=== PATIENT | male | born 1945 | race Caucasian/White ===

== ENCOUNTER 2016-10-02 19:17 | Emergency (ER) | payer OTHER, BC ==
[~2016-10-02] VITALS: Ht 177.8 cm; Wt 96.4 kg
[~2016-10-02 19:17] MED LIST: ALL100 PO; ASPEC81 PO; ATEN-173 PO; CRDCD300 PO; MULT-506 PO
[2016-10-02 19:24] VITALS: TEMP 36.9; Ht 177.8 cm; Wt 96.4 kg
[2016-10-02] MEDS ORDERED: RANITIDINE HCL 50 MG/100 ML D5W IV STA (19:37)
[2016-10-02] MEDS ORDERED: DiphenhydrAMINE HCL 50 MG/ML VIAL IV STA (19:37)
[2016-10-02] MEDS ORDERED: SODIUM CHLORIDE 0.9% 1000ML 1,000 ML IV STA (19:37)
[2016-10-02 19:53] VITALS: O2SAT 99
[2016-10-02] MEDS ORDERED: ASPI1TAB2 PO (19:59)
[2016-10-02] MEDS ORDERED: ALLO100T PO (20:00)
[2016-10-02] MEDS ORDERED: DILT360C17 PO (20:02)
[2016-10-02] MEDS ORDERED: METO25TA56 PO (20:05)
[2016-10-02] MEDS ORDERED: ASPI325T39 PO (20:06)
[2016-10-02] MEDS ORDERED: LISI5TAB PO (20:06)
[2016-10-02] MEDS ORDERED: PRLSR20 PO (20:12)
[2016-10-02] MEDS ORDERED: TAMS0.4C38 PO (20:12)
[2016-10-02] MEDS ORDERED: CHOL1000 PO (20:12)
[2016-10-02] MEDS ORDERED: GLIP10TA9 PO (20:12)
[2016-10-02] MEDS ORDERED: FINA5TAB4 PO (20:12)
--- NOTE | 2016-10-02 20:54 | EMERGENCY ROOM VISIT NOTE ---
ED Visit Note First contact with patient: 19:31 CHIEF COMPLAINT: Allergic reaction HISTORY OF PRESENT ILLNESS: This 71-year-old male patient presents to the emergency department after they developed sudden onset of swelling and itching of the left arm and right face a few hours ago. Patient states he was outside earlier, got stung on the right forehead and left arm by a yellow jacket. He started to notice swelling of his left forearm and his right forehead around his right eye about 2 hours ago after taking a hot shower, and states the swelling has gotten progressively worse. He took one Benadryl at 7 PM without much improvement. The patient does not have any swelling of the lips and denies a sensation of swelling in the throat. The patient has not had shortness of breath. Has not had previous reactions like this before. He denies any chest pain, shortness of breath, rash, abdominal pain, nausea or vomiting, fevers or chills, diarrhea, urinary symptoms. REVIEW OF SYSTEMS: A review of systems was performed with positives and pertinent negatives listed in the history of present illness. All other systems were reviewed and are negative. ALLERGIES: Reviewed in chart MEDICATIONS: Reviewed in chart PMH: Hypertension, hyperlipidemia, type 2 diabetes, BPH SOCIAL HISTORY: Lives at home. Denies tobacco, alcohol, recreational drug use. Medication Reconciliation: I attest that I have personally reviewed the patient' s current medication list. Blood pressure screening: The patient was found to have an elevated blood pressure and was referred to their primary doctor for recheck and further treatment. PHYSICAL EXAM:VITALS: Vitals are noted on the nurse's note and reviewed by myself. Vital signs stable. GENERAL: Pleasant and cooperative, in no acute distress, non-diaphoretic, well- developed well-nourished. THROAT: No pharyngeal edema or injection, no exudates or tonsillar hypertrophy. Airway patent. LUNGS: Clear to auscultation and breath sounds equal, no wheezes, rales, or rhonchi. EYES: PERRLA, EOMI, no discharge or injection. NEUROLOGICAL: Alert and oriented to person, place, and time. Normal sensation to light and sharp touch. HEART: Regular rate without murmurs, ectopy, gallops, or rubs. SKIN: There is no rash noted. The lips are not swollen. There is moderate right sided periorbital swelling. There is moderate swelling and induration of the left forearm. +2 pulses distally, normal sensation, normal cap refill, normal strength of left arm. EMERGENCY DEPARTMENT COURSE: I examined the patient. The patient was given IV fluid bolus, IV Benadryl, IV ranitidine and kept on the monitor. He felt much improved after treatment and there was noticeable improvement in his swelling. Patient was discharged home in stable condition and ambulatory, with his family member driving him home. Current/Historical Medications Scheduled Allopurinol (Zyloprim), 200 MG PO DAILY Aspirin (Aspirin Ec), 325 MG PO DAILY Cholecalciferol (Vitamin D3), 1,000 UNITS PO DAILY Diltiazem Hcl Coated Beads (Cardizem Cd), 360 MG PO DAILY Finasteride (Proscar), 5 MG PO DAILY Glipizide (Glucotrol), 10 MG PO TID Lisinopril (Prinivil), 5 MG PO DAILY Metoprolol Tartrate (Lopressor) (Lopressor), 25 MG PO BID Multivitamin (Multivitamin), 1 TAB PO DAILY Tamsulosin Hcl (Flomax), 0.4 MG PO DAILY Scheduled PRN Omeprazole (Prilosec), 20 MG PO DAILY PRN for reflux Allergies Coded Allergies: Meperidine (Verified Allergy, Mild, 10/02/16) NAUSEA Vital Signs Date Time Temp Pulse Resp B/P (MAP) Pulse Ox O2 Delivery O2 Flow Rate FiO2 10/02/16 19:53 99 Room Air 10/02/16 19:53 99 Room Air 10/02/16 19:24 36.9 86 18 160/74 96 Room Air Medications Administered Medications (Trade) Dose Ordered Sig/Ashley Route Start Time Stop Time Status Last Admin Dose Admin Ranitidine HCl (zANTac IV) 50 mg NOW STAT IV 10/02/16 19:37 10/02/16 19:40 DC 10/02/16 19:52 50 MG Sodium Chloride 1,000 ml @ 999 mls/hr Q1H1M STAT IV 10/02/16 19:37 10/02/16 20:37 DC 10/02/16 19:52 999 MLS/HR Diphenhydramine HCl (Benadryl Inj) 50 mg NOW STAT IV 10/02/16 19:37 10/02/16 19:40 DC 10/02/16 19:52 50 MG Departure Information Impression Primary Impression: Allergic reaction to bee sting Dispostion Home / Self-Care Condition GOOD Referrals James Gordon M.D. (PCP) Patient Instructions ED Bite Sting Insect Local Allergic React, My [facility] Additional Instructions You may continue to take Benadryl 50 mg every 6-8 hours for itching and swelling. Sleep with your head elevated for the next 2-3 nights, until your facial swelling had improved. Cool compresses to your areas of swelling for comfort and to help reduce swelling. Try to stay cool, avoid hot showers as this can worsen your symptoms. Follow-up family doctor in the next few days if symptoms persist. Please return to the emergency department for worsening symptoms, including difficulty breathing, lip or tongue swelling, throat tightness or itching, difficulty swallowing, chest pain, persistent vomiting, fevers or chills, any signs of infection, or any other concerns.
[2016-10-02 21:41] VITALS: BP 142/85; PULSE 74; O2SAT 98
== END 2016-10-02 21:42 | disposition home or self-care (01) ==
LOC: C.EDB 19:18 → C.EDD 21:42
DX: T63.441A Toxic effect of venom of bees, accidental (unintentional), initial encounter (principal); I10 Essential (primary) hypertension; R78.5 Finding of other psychotropic drug in blood; E11.9 Type 2 diabetes mellitus without complications; N40.0 Benign prostatic hyperplasia without lower urinary tract symptoms; Z79.82 Long term (current) use of aspirin; Z79.899 Other long term (current) drug therapy

== ENCOUNTER 2020-05-23 13:48 | Inpatient (IN) ==
[2020-05-23] MEDS ORDERED: ONDANSETRON INJ 2 MG/ML 2 ML VIAL IV STA (14:12)
[2020-05-23] MEDS ORDERED: MoRPHine SULFATE 4 MG/ML 1 ML CARP\\VIAL IV STA (14:12)
--- NOTE | 2020-05-23 14:16 | Emergency Department Note ---
History of Present Illness General Chief complaint: Flank Pain Stated complaint: PAIN ON RIGHT SIDE/TROUBLES BREATHING Time Seen by Provider: 05/23/20 14:04 Source: patient History of Present Illness Provider complaint: Right-sided back pain Onset (ago): day(s) Location: back and right Radiation: non-radiation Pain Consistency: + constant Maximum Pain Intensity: 8 Quality: + sharp Exacerbated By: + movement (Some movements like twisting his trunk) and + other (Deep breaths) Associated symptoms: + shortness of breath (Cannot take deep breaths due to pain); no chest pain, no cough, no diaphoresis, no fever/chills and no nausea/vomiting This is a 75-year-old male who presents with right-sided back pain starting yesterday morning.The pain was transient at the time and he was fine all throughout the day. He then noticed the pain coming back last night. It has been constant throughout the night and was worse this morning. He describes it as sharp. He rates it an 8 out of 10 in severity. It is worse when he takes deep breaths. He is not really short of breath but states that he cannot take deep breaths. It does worsen with twisting of his trunk to some degree but more with deep breaths. He has had no fever, cough, chest discomfort or pain, abdominal pain, vomiting, diarrhea, urinary symptoms, leg swelling or pain, recent immobilization or travel. He does have factor V but he states he has had no complications from this. He denies any injury. Home Medications Medication Instructions Recorded Confirmed Type allopurinol 100 mg PO BID 05/23/20 05/23/20 History aspirin 325 mg PO QAM 05/23/20 05/23/20 History diltiazem HCl 360 mg PO DAILY 05/23/20 05/23/20 History furosemide 20 mg PO DAILY 05/23/20 05/23/20 History glipizide 10 mg PO BID 05/23/20 05/23/20 History lisinopril 5 mg PO DAILY 05/23/20 05/23/20 History metoprolol tartrate 25 mg PO BID 05/23/20 05/23/20 History omeprazole 20 mg PO DAILY 05/23/20 05/23/20 History tamsulosin 0.4 mg PO HS 05/23/20 05/23/20 History Allergies Allergy/AdvReac Type Severity Reaction Status Date / Time meperidine Allergy Mild Verified 05/23/20 14:57 Past Med/Surg History Medical History (Updated 05/23/20 @ 20:12 by Julius Amaro MD) BPH (benign prostatic hyperplasia) CKD (chronic kidney disease) stage 3, GFR 30-59 ml/min 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 Leiden mutation GERD (gastroesophageal reflux disease) Hyperlipidemia Hypertension Family History (Updated 05/23/20 @ 18:15 by Victor Hugo Conklin MD) Father Pancreatic cancer Heart disease Mother Colorectal cancer Daughter Factor V Leiden mutation Social History Smoking Status: Former smoker Hx Alcohol Use: Yes Alcohol type: hard liquor Hx Substance Use: No Preferred Language: Kyrgyz Communication Ability: Effective Architecture Technician Required: No Beliefs That Will Affect Care: None Current Living Situation: Family Other Information That Helps Us Care for You: No Feels Safe at Home: Yes Safety Concerns: Feels Safe At This Time Assistive Devices: Glasses Review of Systems See HPI for pertinent positives & negatives. and A total of 10 systems reviewed and were otherwise negative Physical Exam Vital Signs Vital Signs - 24 hr 05/23/20 13:54 05/23/20 15:49 05/23/20 15:57 Temperature 36.7 C Temperature Source Temporal Artery Scan Pulse Rate 92 H 91 H 91 H Pulse Rate from SpO2 Sensor 91 H Pulse Rhythm Regular Pulse Strength Normal Respiratory Rate 18 28 H 26 H Respiratory Effort / Characteristics Non-Labored Spontaneous Respiratory Depth Normal Respiratory Pattern Regular Blood Pressure 174/80 H 187/86 H 185/94 H Blood Pressure Mean 111 119 124 Blood Pressure Position Sitting Pulse Oximetry 93 92 Oxygen Delivery Method Room Air Oxygen Flow Rate 6 Sepsis Recent Fever Within 48 Hours No Sepsis New/Unexplained Change in Mental Status N/A Sepsis Action Taken by Nursing No Action Required 05/23/20 16:00 05/23/20 16:30 05/23/20 16:31 Temperature Temperature Source Pulse Rate 91 H 90 87 Pulse Rate from SpO2 Sensor 91 H 89 88 Pulse Rhythm Pulse Strength Respiratory Rate 38 H 23 31 H Respiratory Effort / Characteristics Respiratory Depth Respiratory Pattern Blood Pressure 190/93 H 185/87 H Blood Pressure Mean 125 119 Blood Pressure Position Pulse Oximetry 92 94 94 Oxygen Delivery Method Oxymask Oxymask Oxygen Flow Rate 6 6 6 Sepsis Recent Fever Within 48 Hours Sepsis New/Unexplained Change in Mental Status Sepsis Action Taken by Nursing 05/23/20 17:00 05/23/20 17:30 Temperature Temperature Source Pulse Rate 86 88 Pulse Rate from SpO2 Sensor 85 88 Pulse Rhythm Pulse Strength Respiratory Rate 32 H 32 H Respiratory Effort / Characteristics Respiratory Depth Respiratory Pattern Blood Pressure 194/104 H 197/96 H Blood Pressure Mean 134 129 Blood Pressure Position Pulse Oximetry 95 95 Oxygen Delivery Method Oxymask Oxymask Oxygen Flow Rate 5 5 Sepsis Recent Fever Within 48 Hours Sepsis New/Unexplained Change in Mental Status Sepsis Action Taken by Nursing Constitutional: Vital signs reviewed. Eyes: Pupils are equal round reactive to light. Conjunctiva are noninjected. ENT: Pharynx is clear without erythema or exudate. Mucous membranes are moist. Neck supple without meningeal signs. Respiratory: Clear to auscultation bilaterally. Breath sounds are equal bilaterally. Cardiovascular: Regular rate and rhythm. No rubs or gallops. GI: Soft, nondistended and nontender. Bowel sounds are present. Musculoskeletal: No peripheral edema. No lower extremity tenderness. No midline tenderness to the thoracic or lumbar spine. No rash or erythema to the back. Integumentary: No cyanosis. or jaundice. Neurological: The patient is awake and alert. No focal deficits. Psychiatric: Normal affect. Not anxious appearing. Course Administered Medications Hydromorphone HCl (Hydromorphone Inj 0.5 Mg/0.5 Ml Syr) 0.5 mg IV Q4H PRN PRN Reason: Pain (8, 9, or 10) Stop: 06/06/20 18:33 Last Admin: 05/23/20 19:08 Dose: 0.5 mg Documented by: [id number] Heparin Sodium/Dextrose (Heparin Sodium/Dextrose) 25,000 units in 500 mls @ 28 mls/hr IV .[id number] [facility]; Protocol Stop: 06/22/20 15:59 Last Admin: 05/23/20 16:20 Dose: 1,400 units/hr, 28 mls/hr Documented by: [id number] Cosigned by: [id number] Discontinued Medications Heparin Sodium (Porcine) (Heparin Sod (Porcine) 1000 Unit/Ml 10 Ml Vial) Confirm Administered Dose 10,000 units .ROUTE .[facility] Stop: 05/23/20 16:12 Last Admin: 05/23/20 16:22 Dose: 5,000 units Documented by: [id number] Cosigned by: [id number] Heparin Sodium/Dextrose (Heparin Iv Standard With Bolus) 1 ea IV NOW ; Protocol Stop: 05/23/20 16:00 Last Admin: 05/23/20 16:28 Dose: Not Given Documented by: [id number] Hydromorphone HCl (Hydromorphone Inj 0.5 Mg/0.5 Ml Syr) 0.5 mg IV NOW STA Stop: 05/23/20 15:01 Last Admin: 05/23/20 15:20 Dose: 0.5 mg Documented by: [id number] Hydromorphone HCl (Hydromorphone Inj 0.5 Mg/0.5 Ml Syr) 0.25 mg IV NOW STA Stop: 05/23/20 16:32 Last Admin: 05/23/20 16:40 Dose: 0.25 mg Documented by: [id number] Ioversol (Optiray 350 500ml) 119 ml IV ONCE ONE Stop: 05/23/20 15:47 Last Admin: 05/23/20 15:46 Dose: 119 ml Documented by: [id number] Morphine Sulfate (Morphine Sulfate 4 Mg/Ml 1 Ml Carp\Vial) 4 mg IV NOW STA Stop: 05/23/20 14:13 Last Admin: 05/23/20 14:20 Dose: 4 mg Documented by: [id number] Morphine Sulfate (Morphine Sulfate 4 Mg/Ml 1 Ml Carp\Vial) 3 mg IV Q4H PRN PRN Reason: Pain Stop: 06/06/20 17:55 Last Admin: 05/23/20 18:19 Dose: 3 mg Documented by: [id number] Ondansetron HCl (Ondansetron Inj 2 Mg/Ml 2 Ml Vial) 4 mg IV NOW STA Stop: 05/23/20 14:13 Last Admin: 05/23/20 14:20 Dose: 4 mg Documented by: [id number] Critical Care Time Critical Care Time: Yes Total Critical Care Time: 45 I have personally spent approximately 45 minutes of critical care time in the direct management of this patient. This includes bedside care, interpretation of diagnostic studies, and testing, discussion with consultants, patient, and family members, and other required patient management activities. These minutes are in excess of all separately billable procedures. Medical Decision Making Differential Diagnosis Pneumothorax, pulmonary embolism, shingles, pleurisy, muscle strain Medical Records Attestation: I reviewed the patient's medical records. I did perform a limited focused review of portions of the patient's old chart on the electronic medical record. The patient has had no recent pertinent visits to this hospital. Home Medications Current Medication List: was personally reviewed by me Laboratory Data Attestation: I reviewed the patient's lab results. Result diagrams: 05/23/20 14:20 05/23/20 14:20 Lab Results 05/23/20 05/23/20 05/23/20 Range/Units 14:18 14:20 14:20 WBC 12.41 H (4.8-10.8) K/uL RBC 5.19 (4.7-6.1) M/uL Hgb 14.6 (14.0-18.0) g/dL Hct 41.8 L (42-52) % MCV 80.5 (80-100) fL MCH 28.1 (25-34) pg MCHC 34.9 (32-36) g/dL RDW Std Deviation 40.6 (36.4-46.3) fL RDW Coeff of Sesar 13.9 (11.5-14.5) % Plt Count 165 (130-400) K/uL MPV 9.5 (7.4-10.4) fL Immature Gran % (Auto) 0.2 % Neut % (Auto) 75.3 % Lymph % (Auto) 12.9 % [place] % (Auto) 9.0 % Eos % (Auto) 2.3 % Baso % (Auto) 0.3 % Neut # (Auto) 9.35 H (1.4-6.5) K/uL Lymph # (Auto) 1.60 (1.2-3.4) K/uL [place] # (Auto) 1.12 H (0.11-0.59) K/uL Eos # (Auto) 0.28 (0-0.5) K/uL Baso # (Auto) 0.04 (0-0.2) K/uL Immature Gran # (Auto) 0.02 (0.00-0.02) K/uL PT (9.0-12.0) Seconds INR (0.9-1.1) APTT (21.0-31.0) Seconds PTT Ratio Sodium 136 (136-145) mmol/L Potassium 4.4 (3.5-5.1) mmol/L Chloride 104 (98-107) mmol/L Carbon Dioxide 26 (21-32) mmol/L Anion Gap 6.0 (3-11) BUN 33 H (7-18) mg/dl Creatinine 1.83 H (0.6-1.4) mg/dl Est Cr Clr Drug Dosing 39.8 ml/min Est GFR ( Amer) 40.6 Est GFR (Non-Af Amer) 35.1 BUN/Creatinine Ratio 18.1 (10-20) Glucose 268 H (70-99) mg/dl Calcium 10.1 (8.5-10.1) mg/dl Total Bilirubin 0.4 (0.2-1) mg/dl AST 13 L (15-37) U/L ALT 19 (12-78) U/L Alkaline Phosphatase 80 (45-117) U/L Troponin I < 0.015 (0-0.045) ng/ml Total Protein 7.6 (6.4-8.2) gm/dl Albumin 3.8 (3.4-5.0) gm/dl Globulin 3.8 (2.5-4.0) gm/dl Albumin/Globulin Ratio 1.0 (0.9-2) Urine Color Yellow Urine Appearance Clear (Clear) Urine pH 5.0 (4.5-7.5) Ur Specific [place] 1.015 (1.000-1.030) Urine Protein 1+ H (Negative) Urine Glucose (UA) Negative (Negative) Urine Ketones Negative (Negative) Urine Blood Negative (Negative) Urine Nitrite Negative (Negative) Urine Bilirubin Negative (Negative) Urine Urobilinogen Negative (Negative) Ur Leukocyte Esterase Negative (Negative) Urine WBC (Auto) 1-5 (0-5) /hpf Urine RBC (Auto) 0-4 (0-4) /hpf U Hyaline Cast (Auto) 1-5 (0-5) /lpf U Epithel Cells (Auto) 0-5 (0-5) /lpf Urine Bacteria (Auto) Negative (Negative) COVID-19 Eval Order SARS-CoV-2 (PCR) (Negative) Influenza Type A (PCR) (Neg) Influenza Type B (PCR) (Neg) RSV (RT-PCR) (Neg) 05/23/20 05/23/20 05/23/20 Range/Units 15:55 15:55 16:01 WBC (4.8-10.8) K/uL RBC (4.7-6.1) M/uL Hgb (14.0-18.0) g/dL Hct (42-52) % MCV (80-100) fL MCH (25-34) pg MCHC (32-36) g/dL RDW Std Deviation (36.4-46.3) fL RDW Coeff of Sesar (11.5-14.5) % Plt Count (130-400) K/uL MPV (7.4-10.4) fL Immature Gran % (Auto) % Neut % (Auto) % Lymph % (Auto) % [place] % (Auto) % Eos % (Auto) % Baso % (Auto) % Neut # (Auto) (1.4-6.5) K/uL Lymph # (Auto) (1.2-3.4) K/uL [place] # (Auto) (0.11-0.59) K/uL Eos # (Auto) (0-0.5) K/uL Baso # (Auto) (0-0.2) K/uL Immature Gran # (Auto) (0.00-0.02) K/uL PT 9.6 (9.0-12.0) Seconds INR 0.9 (0.9-1.1) APTT 25.6 (21.0-31.0) Seconds PTT Ratio 1.0 Sodium (136-145) mmol/L Potassium (3.5-5.1) mmol/L Chloride (98-107) mmol/L Carbon Dioxide (21-32) mmol/L Anion Gap (3-11) BUN (7-18) mg/dl Creatinine (0.6-1.4) mg/dl Est Cr Clr Drug Dosing ml/min Est GFR ( Amer) Est GFR (Non-Af Amer) BUN/Creatinine Ratio (10-20) Glucose (70-99) mg/dl Calcium (8.5-10.1) mg/dl Total Bilirubin (0.2-1) mg/dl AST (15-37) U/L ALT (12-78) U/L Alkaline Phosphatase (45-117) U/L Troponin I (0-0.045) ng/ml Total Protein (6.4-8.2) gm/dl Albumin (3.4-5.0) gm/dl Globulin (2.5-4.0) gm/dl Albumin/Globulin Ratio (0.9-2) Urine Color Urine Appearance (Clear) Urine pH (4.5-7.5) Ur Specific [place] (1.000-1.030) Urine Protein (Negative) Urine Glucose (UA) (Negative) Urine Ketones (Negative) Urine Blood (Negative) Urine Nitrite (Negative) Urine Bilirubin (Negative) Urine Urobilinogen (Negative) Ur Leukocyte Esterase (Negative) Urine WBC (Auto) (0-5) /hpf Urine RBC (Auto) (0-4) /hpf U Hyaline Cast (Auto) (0-5) /lpf U Epithel Cells (Auto) (0-5) /lpf Urine Bacteria (Auto) (Negative) COVID-19 Eval Order CovFluRsv at [facility] SARS-CoV-2 (PCR) NEGATIVE (Negative) Influenza Type A (PCR) Negative (Neg) Influenza Type B (PCR) Negative (Neg) RSV (RT-PCR) Negative (Neg) Imaging Data Radiologist's Impression: Chest CTA 05/23/20 14:12 CT angio chest PE protocol HISTORY: 75 years-old Male with right pain eval for PE. Acute shortness of breath with chest pain TECHNIQUE: Multiple CTA images of the chest were obtained after the intravenous administration of 117 ml Optiray. Coronal and sagittal MIPS were obtained from the axial data set and were submitted for review. All measurements were obtained according to NASCET criteria. A dose lowering technique was utilized adhering to the principles of ALARA. COMPARISON: CT thoracic spine of same day FINDINGS: CTA: Mild cardiomegaly. No pericardial effusion. Mild coronary artery calcifications. Moderate atheromatous plaque the thoracic aorta without aneurysm or dissection. Pulmonary bullae within the distal aspect of the right lower lobar pulmonary artery extends into the segmental and subsegmental branches. Additional segmental and subsegmental pulmonary emboli of the left lower lobe and lingula. No evidence of right heart strain. CT CHEST: Unremarkable thyroid. Centrally calcified 10 mm AP window lymph node may reflect prior granulomatous disease. Trace right pleural effusion. No pneumothorax. Bronchial wall thickening. Bibasilar right greater than left groundglass densities with mild subsegmental consolidation. Central airways are patent. No pneumoperitoneum. Small hiatal hernia with mild mid and distal esophageal wal l thickening. 1.7 cm exophytic soft tissue attenuating lesion of the superior pole right kidney posteriorly. There are a few subcentimeter hypodensities of the liver suggestive of cysts measuring up to 6 mm. No acute fracture. IMPRESSION: 1. Cardiomegaly with bilateral pulmonary emboli, most pronounced in the right lower lobe. 2. No right heart strain or pulmonary infarct identified. 3. Trace right pleural effusion. 4. Right greater than left bibasilar predominant opacities suggestive of atelectasis. A nonspecific pneumonitis could appear similarly 5. 1.7 cm lesion of the superior pole right kidney suspicious for renal cell carcinoma. ACT 112: Negative or not required by law. The above report was generated using voice recognition software. It may contain grammatical, syntax or spelling errors. Electronically signed by: Beny Savage M.D. 05/23/2020 4:24 PM Chest X-Ray 05/23/20 14:12 XR chest 1V portable HISTORY: 75 years-old Male right back pain eval for PTX acute right-sided chest and back pain COMPARISON: None TECHNIQUE: AP view of the chest FINDINGS: Cardiac silhouette is enlarged. Mild prominence of the pulmonary vasculature may represent pulmonary artery hypertension. No pneumothorax or large pleural effusion. Mild subsegmental bibasilar densities. Degenerative changes of the shoulders and spine. IMPRESSION: 1. Cardiomegaly without pulmonary edema. 2. Mild bibasilar opacities suggest atelectasis or pneumonitis. 3. No pneumothorax. ACT 112: Negative or not required by law. The above report was generated using voice recognition software. It may contain grammatical, syntax or spelling errors. Electronically signed by: Beny Savage M.D. 05/23/2020 2:[address] 05/23/20 14:12 CT thoracic spine w con HISTORY: 75 years-old Male pain eval for fx acute chest and mid back pain COMPARISON: CTA chest of same day TECHNIQUE: Multiple axial CT images of the thoracic spine were obtained without the use of IV contrast. A dose lowering technique was used consistent with the principals of KEEGAN. FINDINGS: Pulmonary emboli of the right lower lobe with trace right pleural effusion and mild bibasilar groundglass densities. There is an exophytic 1.7 cm lesion of the penile aspect of the superior pole right [place]. Small hiatal hernia. Cardiomegaly. Demineralized appearance of the bones. Mild multilevel intervertebral disc space narrowing with mild spondylitic spurring and moderate facet arthrosis. No acute fracture, subluxation or suspicious bone lesion. IMPRESSION: 1. No acute fracture or subluxation. 2. Right lower lobe pulmonary emboli with trace right pleural effusion. 3. Exophytic 1.7 cm lesion of the superior pole right kidney suspicious for renal cell carcinoma. ACT 112: Negative or not required by law. The above report was generated using voice recognition software. It may contain grammatical, syntax or spelling errors. Electronically signed by: Beny Savage M.D. 05/23/2020 4:10 PM ECG Data Attestation: I personally reviewed and interpreted this ECG as follows: Indication: + chest pain Rate (beats per minute): 93 Rhythm: + normal sinus ECG ST segments: no ST elevation ECG Findings: + Other (Motion artifact limiting interpretation); no PVCs MDM Narrative I did evaluate the patient as noted above. Patient is presenting with right thoracic back pain since last night. He had some pain earlier in the morning yesterday but it resolved until last night. IV access was established. I did treat the patient with IV morphine and Zofran. I did place an order for contin uous cardiac monitoring. The monitor showed normal sinus rhythm at a rate of 90 bpm. I did order and personally review the patient's 12-lead EKG as described above. He has no evidence of acute ischemia although there is some motion artifact limiting interpretation. I did order and personally reviewed the images of the patient's chest x-ray as described above. There is no evidence of pneumothorax or infiltrate. I did order a urine analysis. He does not appear to have a UTI. I did order and review the patient's blood work as noted in the electronic medical record. His white blood cell count is elevated. He does not have anemia or thrombocytopenia. Electrolytes are unremarkable. Creatinine is consistent with his chronic kidney disease at 1.83. Glucose is elevated to 68. Troponin is negative. The patient had more pain and so I did give him Dilaudid 0.5 mg IV. After discussion with the patient and his daughter about risks and benefits of CT scanning they did agree to a CT angio of the chest. I did order a CT angiogram of the chest. I did review the images myself as well as the radiology report as described above. When he came back his O2 saturation dropped to the 70s. His blood pressure remained elevated. He was not tachycardic. He was placed on supplemental oxygen. He does have bilateral pulmonary emboli greatest on the right. There are no signs of pulmonary infarction or right sided heart strain. He also has a mass on the kidney concerning for renal carcinoma. I did discuss the test results with the patient. I did discuss risks and benefits of anticoagulation. They are agreeable. I did order IV heparin with a bolus and continuous infusion. Rapid Covid testing was negative. He had persistent pain and was given IV fentanyl. I did discuss the case with the hospitalist and manager of case management. Impression & Plan Acute respiratory failure with hypoxia, Factor V deficiency, CKD (chronic kidn ey disease) stage 3, GFR 30-59 ml/min, Acute pulmonary embolism, Renal mass Discharge Plan Visit Data Chief Complaint: Flank Pain Stated Complaint: PAIN ON RIGHT SIDE/TROUBLES BREATHING ED Provider: Julius Amaro Discharge Problem: Acute respiratory failure with hypoxia, Factor V deficiency, CKD (chronic kidney disease) stage 3, GFR 30-59 ml/min, Acute pulmonary embolism, Renal mass Patient Disposition: Admitted As Inpatient Discharge Instructions Interventions: ED Discharge Assessment Last Done: 05/23/20 18:37 Discharge Problem: CKD (chronic kidney disease) stage 3, GFR 30-59 ml/min Qualifiers: Chronic kidney disease stage 3 subtype: unspecified whether 3a or 3b Qualified Code(s): N18.30 - Chronic kidney disease, stage 3 unspecified Acute pulmonary embolism Qualifiers: Pulmonary embolism type: unspecified Acute cor pulmonale presence: unspecified Qualified Code(s): I26.99 - Other pulmonary embolism without acute cor pulmonale
[2020-05-23 14:33] LABS: Basophils # (auto) 0.04 K/uL (0-0.2); Basophils % (auto) 0.3 %; Eosinophils # (auto) 0.28 K/uL (0-0.5); Eosinophils % (auto) 2.3 %; Hematocrit (blood only) 41.8 % (42-52); Hemoglobin 14.6 g/dL (14.0-18.0); Immature Granulocytes # (auto) 0.02 K/uL (0.00-0.02); Immature Granulocytes % (auto) 0.2 %; Lymphocytes % (auto) 12.9 %; Mean Corpuscular Hemoglobin 28.1 pg (25-34); Mean Corpuscular Hgb Conc 34.9 g/dL (32-36); Mean Corpuscular Volume 80.5 fL (80-100); Mean Platelet Volume 9.5 fL (7.4-10.4); Monocytes # (auto) 1.12 K/uL (0.11-0.59); Neutrophils # (auto) 9.35 K/uL (1.4-6.5); Neutrophils % (auto) 75.3 %; Platelet Count 165 K/uL (130-400); RDW Coefficient of Variation 13.9 % (11.5-14.5); RDW Standard Deviation 40.6 fL (36.4-46.3); Red Blood Count 5.19 M/uL (4.7-6.1); White Blood Count 12.41 K/uL (4.8-10.8)
--- NOTE | 2020-05-23 14:44 | XRay Report ---
XR chest 1V portable HISTORY: 75 years-old Male right back pain eval for PTX acute right-sided chest and back pain COMPARISON: None TECHNIQUE: AP view of the chest FINDINGS: Cardiac silhouette is enlarged. Mild prominence of the pulmonary vasculature may represent pulmonary artery hypertension. No pneumothorax or large pleural effusion. Mild subsegmental bibasilar densities . Degenerative changes of the shoulders and spine. IMPRESSION: 1. Cardiomegaly without pulmonary edema. 2. Mild bibasilar opacities suggest atelectasis or pneumonitis. 3. No pneumothorax. ACT 112: Negative or not required by law. The above report was generated using voice recognition software. It may contain grammatical, syntax o r spelling errors. Electronically signed by: Beny Savage M.D. 05/23/2020 2:43 PM
[2020-05-23 14:46] LABS: Alanine Aminotransferase 19 U/L (12-78); Albumin Level 3.8 gm/dl (3.4-5.0); Aspartate Aminotransferase 13 U/L (15-37); BUN Creatinine Ratio 18.1 (10-20); Blood Urea Nitrogen 33 mg/dl (7-18); Calcium 10.1 mg/dl (8.5-10.1); Carbon Dioxide 26 mmol/L (21-32); Chloride 104 mmol/L (98-107); Creatinine Clr Calc Pharmacy 39.8 ml/min; Est GFR (African American) 40.6; Est GFR (Non-African American) 35.1; Glucose 268 mg/dl (70-99); Potassium 4.4 mmol/L (3.5-5.1); Sodium 136 mmol/L (136-145)
[2020-05-23 14:49] LABS: Alkaline Phosphatase 80 U/L (45-117); Bilirubin,Total 0.4 mg/dl (0.2-1); Globulin 3.8 gm/dl (2.5-4.0); Total Protein 7.6 gm/dl (6.4-8.2)
[2020-05-23 14:54] LABS: Appearance Urine Clear (Clear); Bacteria Urine Automated Negative (Negative); Bilirubin Urine Negative (Negative); Blood Urine Negative (Negative); Color Urine Yellow; Epithelial Cell Urine Auto 0-5 /lpf (0-5); Glucose Urine UA Negative (Negative); Ketones Urine Negative (Negative); Leukocyte Esterase Urine Negative (Negative); Nitrite Urine Negative (Negative); Protein Urine 1+ (Negative); RBC Urine Automated 0-4 /hpf (0-4); Specific Gravity Urine 1.015 (1.000-1.030); Urobilinogen Urine Negative (Negative)
[2020-05-23] MEDS ORDERED: HYDROmorphone INJ 0.5 MG/0.5 ML SYR IV STA ×3 (15:00→20:26)
[2020-05-23 15:33] LABS: Troponin I < 0.015 ng/ml (0-0.045)
[2020-05-23] MEDS ORDERED: OPTIRAY 350 500ml IV ONE (15:46)
[2020-05-23] MEDS ORDERED: Heparin IV Adult Wt-Based Standard WITH Bolus Protocol IV STA (15:59)
[2020-05-23] MEDS ORDERED: HEPARIN SOD (PORCINE) 1000 UNIT/ML ONE (16:11)
--- NOTE | 2020-05-23 16:11 | CT Scan Report ---
CT thoracic spine w con HISTORY: 75 years-old Male pain eval for fx acute chest and mid back pain COMPARISON: CTA chest of same day TECHNIQUE: Multiple axial CT images of the thoracic spine were obtained without the use of IV contras t. A dose lowering technique was used consistent with the principals of KEEGAN. FINDINGS: Pulmonary emboli of the right lower lobe with trace right pleural effusion and mild bibasilar groundg lass densities. There is an exophytic 1.7 cm lesion of the penile aspect of the superior pole right [place]. Small hiatal hernia. Cardiomegaly. Demineralized appearance of the bones. Mild multilevel intervertebral disc space narrowing with mild spondylitic spurring and moderate facet arthrosis. No acute fracture, subluxation or suspicious bone lesion. IMPRESSION: 1. No acute fracture or subluxation. 2. Right lower lobe pulmonary emboli with trace right pleural effusion. 3. Exophytic 1.7 cm lesion of the superior pole right kidney suspicious for renal cell carcinoma. ACT 112: Negative or not required by law. The above report was generated using voice recognition software. It may contain grammatical, syntax o r spelling errors. Electronically signed by: Beny Savage M.D. 05/23/2020 4:10 PM
[2020-05-23 16:19] LABS: INR 0.9 (0.9-1.1); Partial Thromboplastin Time 25.6 Seconds (21.0-31.0); Prothrombin Time 9.6 Seconds (9.0-12.0)
[2020-05-23] MEDS: HEPARIN SODIUM/DEXTROSE 25,000 UNITS/500 ML BAG IV SCH (16:20)
--- NOTE | 2020-05-23 16:25 | CT Scan Report ---
CT angio chest PE protocol HISTORY: 75 years-old Male with right pain eval for PE. Acute shortness of breath with chest pain TECHNIQUE: Multiple CTA images of the chest were obtained after the intravenous administration of 117 ml Optiray. Coronal and sagittal MIPS were obtained from the axial data set and were submitted for review. All measurements were obtained according to NASCET criteria. A dose lowering technique was u tilized adhering to the principles of ALARA. COMPARISON: CT thoracic spine of same day FINDINGS: CTA: Mild cardiomegaly. No pericardial effusion. Mild coronary artery calcifications. Moderate atheromatou s plaque the thoracic aorta without aneurysm or dissection. Pulmonary bullae within the distal aspect of the right lower lobar pulmonary artery extends into the segmental and subsegmental branches. Kulwinder tional segmental and subsegmental pulmonary emboli of the left lower lobe and lingula. No evidence of right heart strain. CT CHEST: Unremarkable thyroid. Centrally calcified 10 mm AP window lymph node may reflect prior granulomatous disease. Trace right pleural effusion. No pneumothorax. Bronchial wall thickening. Bibasilar right gr eater than left groundglass densities with mild subsegmental consolidation. Central airways are paten t. No pneumoperitoneum. Small hiatal hernia with mild mid and distal esophageal wall thickening. 1.7 cm exophytic soft tissue attenuating lesion of the superior pole right kidney posteriorly. There are a f ew subcentimeter hypodensities of the liver suggestive of cysts measuring up to 6 mm. No acute fractu re. IMPRESSION: 1. Cardiomegaly with bilateral pulmonary emboli, most pronounced in the right lower lobe. 2. No right heart strain or pulmonary infarct identified. 3. Trace right pleural effusion. 4. Right greater than left bibasilar predominant opacities suggestive of atelectasis. A nonspecific p neumonitis could appear similarly 5. 1.7 cm lesion of the superior pole right kidney suspicious for renal cell carcinoma. ACT 112: Negative or not required by law. The above report was generated using voice recognition software. It may contain grammatical, syntax o r spelling errors. Electronically signed by: Beny Savage M.D. 05/23/2020 4:24 PM
[2020-05-23 16:53] LABS: Influenza A virus by PCR Negative (Neg); Influenza B virus by PCR Negative (Neg); RSV by PCR Negative (Neg); SARS CoV2 RNA(COVID-19) InHosp NEGATIVE (Negative)
[2020-05-23] MEDS ORDERED: POLYETHYLENE (MIRALAX) 17 GM PACK PO PRN (17:38)
[2020-05-23] MEDS ORDERED: MoRPHine SULFATE 4 MG/ML 1 ML CARP\\VIAL IV PRN (17:56)
[2020-05-23] MEDS ORDERED: GLUCOSE 40% GEL 15 GM TUBE PO PRN (18:05)
[2020-05-23] MEDS ORDERED: GLUCOSE 10 TABS/TUBE PO PRN (18:05)
[2020-05-23] MEDS ORDERED: CARBOHYDRATES FOR HYPOGLYCEMIA PO PRN (18:05)
[2020-05-23] MEDS ORDERED: DEXTROSE 50% 50 ML SYRINGE IV PRN (18:05)
[2020-05-23] MEDS ORDERED: GLUCAGON FOR INJ 1 MG VIAL SQ PRN (18:05)
--- NOTE | 2020-05-23 18:28 | History & Physical Report ---
Date of Service May 23, 2020 Assessment & Plan (1) Acute respiratory failure with hypoxia: (2) Acute pulmonary embolism: (3) Factor V Leiden mutation: Patient found hypoxic, currently on 4 L of oxygen mask in the ED CT PE - cardiomegaly with bilateral pulmonary emboli, most pronounced in the right lower lobe. No right heart strain or pulmonary infarct identified. Trace right pleural effusion. Right greater than left bibasilar predominant opacities suggestive of atelectasis. A nonspecific pneumonitis could appear similarly History of factor V Leiden mutation, however no prior history of thrombosis Patient is on high-dose aspirin at home In the ED patient was started on IV heparin, will continue Pain control with IV morphine and Dilaudid in the ED, will also add lidocaine patch, and p.o. oxycodone as needed Supplemental oxygen as needed Echo ordered (4) Renal mass: New indinetal finding on CT when eval for PE 1.7 cm lesion of the superior pole right kidney suspicious for renal cell carcinoma. - concern for renal cell carcinoma - will need further eval (5) Diabetes mellitus type 2 in nonobese: Last A1c 7.5% in 01/28/20 will check AM A1c - hold home glipizide, SSI while inpt - monitor blood glucose while inpt (6) CKD (chronic kidney disease) stage 3, GFR 30-59 ml/min: MARY on CKD stage 3 - baseline Cr 1.5-1.6 - current Cr 1.83 - s/p contrast to eval for PE - try to avoid other nephrotoxic agents - hold furosemide for now - monitor BMP (7) Hypertension: - cont. home diltiazem, metoprolol - monitor BP while inpt (8) GERD (gastroesophageal reflux disease): - cont. home omeprazole or its equivalent while inpt (9) BPH (benign prostatic hyperplasia): - cont. tamsulosin Code: Full Dispo: pt is from home, independent History of Present Illness Chief Complaint: Hypoxia, PE, flank pain Primary Care Provider: James Gordon MD Mr. Mosquera is a 75-year-old male with a history of hypertension, diabetes mellitus type 2, hyperlipidemia, CKD stage III, factor V Leiden mutation, who presents due to right flank pain, and is found hypoxic and with acute PE. Patient was only somewhat recently diagnosed with factor V Leiden mutation as his daughter was diagnosed and then they tested other family members. He never had any issues with factor V Leiden, no history of thrombosis. Yesterday in the morning he developed pain in his posterior right chest/flank area, he still went to work but then it got somewhat worse. Then this morning patient was really uncomfortable and at that time his family decided to bring him to the hospital. He felt a little short of breath as well, mostly because he is very uncomfortable taking a deep breath. His daughter is currently at the bedside and also helps to provide history. The pain initially started at the posterior area of his right chest, however now is more at the frontal right chest. And patient is even holding his right chest. Patient required several pain medications in the ED, including morphine and Dilaudid. Patient was started on IV heparin in the ED. Reports being little more comfortable now however still has difficulty to take a deep breath or speak much. He was placed on oxygen mask and currently at 4 L. Denies being dizzy or lightheaded. Denies any abdominal pain nausea vomiting. Denies any fevers or chills. No lower extremity edema. No weakness in any extremities. Patient has no prior history of PE or DVT. In addition, when patient was evaluated for possible PE, a lesion on his right kidney was found, concerning for possible renal cell carcinoma. Patient reports family history of pancreatic cancer in his father, and colon cancer in his mother. Patient is a non-smoker. Also denies any prolonged travel or prolonged sitting. Reports that his job is active. Patient was found COVID-19 negative in the ED. Allergies Allergy/AdvReac Type Severity Reaction Status Date / Time meperidine Allergy Mild Verified 05/23/20 14:57 Home Medications Medication Instructions Recorded Confirmed Type allopurinol 100 mg PO BID 05/23/20 05/23/20 History aspirin 325 mg PO QAM 05/23/20 05/23/20 History diltiazem HCl 360 mg PO DAILY 05/23/20 05/23/20 History furosemide 20 mg PO DAILY 05/23/20 05/23/20 History glipizide 10 mg PO BID 05/23/20 05/23/20 History lisinopril 5 mg PO DAILY 05/23/20 05/23/20 History metoprolol tartrate 25 mg PO BID 05/23/20 05/23/20 History omeprazole 20 mg PO DAILY 05/23/20 05/23/20 History tamsulosin 0.4 mg PO HS 05/23/20 05/23/20 History Past Med/Surg History Medical History (Updated 05/23/20 @ 20:12 by Julius Amaro MD) BPH (benign prostatic hyperplasia) CKD (chronic kidney disease) stage 3, GFR 30-59 ml/min 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 Leiden mutation GERD (gastroesophageal reflux disease) Hyperlipidemia Hypertension Family History (Updated 05/23/20 @ 18:15 by Victor Hugo Conklin MD) Father Pancreatic cancer Heart disease Mother Colorectal cancer Daughter Factor V Leiden mutation Social History Smoking Status: Former smoker Hx Alcohol Use: Yes Alcohol type: hard liquor Hx Substance Use: No Preferred Language: Faroese Communication Ability: Effective Transferrer Required: No Beliefs That Will Affect Care: None Current Living Situation: Family Other Information That Helps Us Care for You: No Feels Safe at Home: Yes Safety Concerns: Feels Safe At This Time Assistive Devices: Oxygen - Continuous Review of Systems Review of Systems: All systems reviewed & are unremarkable except as noted in HPI & below Constitutional: no fever and no chills Eyes: no problem reported Ear, Nose, Mouth, Throat: no problem reported Respiratory: + dyspnea and + pain on inspiration Cardiovascular: + chest pain; no palpitations and no edema Gastrointestinal: no abdominal pain, no nausea and no vomiting Genitourinary: no problem reported Musculoskeletal: no problem reported Integumentary: no problem reported Neurologic: no problem reported Psychiatric: no problem reported Endocrine: no problem reported Hematologic / Lymphatic: no problem reported Allergy / Immunological: no problem reported Physical Exam Constitutional: WD/WN, vitals as above + acute distress (some distress d/t pain) Eyes: PERRL, conjunctivae normal, anicteric sclerae ENMT: external ear and nose normal, oropharynx normal Neck: trachea midline, no thyromegaly normal visual inspection Respiratory: + respiratory distress (mild (on oxymask 4L)) Auscultation: lungs clear to auscultation bilaterally and + rhonchi (mild bibasilar); no rales and no wheezes Cardiovascular: RRR, no murmur, no edema Chest (Breasts): Chest: normal inspection of chest Gastrointestinal (Abdomen): normal bowel sounds, soft, nontender, no hepatosplenomegaly Percussion/Palpation: abdomen soft; no guarding and abdomen not rigid Musculoskeletal: no cyanosis or clubbing, extremities motor strength 5/5 Head/Neck/Chest: normocephalic and head atraumatic Skin: no rashes, warm and dry Neurologic: PERRL, EOMI, accommodation nl, no face palsy, no dysarthria Psychiatric: A+Ox3, euthymic affect Genitourinary: no CVA tenderness Lymphatic: no lymphedema Results & Data Results & Data ([facility]) Vital Signs (Past 12 Hours) Vital Signs Temp Pulse Resp BP Pulse Ox 05/23/20 16:31 87 31 H 94 05/23/20 16:30 90 23 185/87 H 94 05/23/20 16:00 91 H 38 H 190/93 H 92 05/23/20 15:57 91 H 26 H 185/94 H 92 05/23/20 15:49 91 H 28 H 187/86 H 05/23/20 13:54 36.7 C 92 H 18 174/80 H 93 Laboratory Results 05/23/20 05/23/20 05/23/20 Range/Units 16:01 15:55 15:55 WBC (4.8-10.8) K/uL RBC (4.7-6.1) M/uL Hgb (14.0-18.0) g/dL Hct (42-52) % MCV (80-100) fL MCH (25-34) pg MCHC (32-36) g/dL RDW Std Deviation (36.4-46.3) fL RDW Coeff of Sesar (11.5-14.5) % Plt Count (130-400) K/uL MPV (7.4-10.4) fL Immature Gran % (Auto) % Neut % (Auto) % Lymph % (Auto) % Hale % (Auto) % Eos % (Auto) % Baso % (Auto) % Neut # (Auto) (1.4-6.5) K/uL Lymph # (Auto) (1.2-3.4) K/uL Hale # (Auto) (0.11-0.59) K/uL Eos # (Auto) (0-0.5) K/uL Baso # (Auto) (0-0.2) K/uL Immature Gran # (Auto) (0.00-0.02) K/uL PT 9.6 (9.0-12.0) Seconds INR 0.9 (0.9-1.1) APTT 25.6 (21.0-31.0) Seconds PTT Ratio 1.0 Sodium (136-145) mmol/L Potassium (3.5-5.1) mmol/L Chloride (98-107) mmol/L Carbon Dioxide (21-32) mmol/L Anion Gap (3-11) BUN (7-18) mg/dl Creatinine (0.6-1.4) mg/dl Est Cr Clr Drug Dosing ml/min Est GFR ( Amer) Est GFR (Non-Af Amer) BUN/Creatinine Ratio (10-20) Glucose (70-99) mg/dl Calcium (8.5-10.1) mg/dl Total Bilirubin (0.2-1) mg/dl AST (15-37) U/L ALT (12-78) U/L Alkaline Phosphatase (45-117) U/L Troponin I (0-0.045) ng/ml Total Protein (6.4-8.2) gm/dl Albumin (3.4-5.0) gm/dl Globulin (2.5-4.0) gm/dl Albumin/Globulin Ratio (0.9-2) Urine Color Urine Appearance (Clear) Urine pH (4.5-7.5) Ur Specific Pioneer (1.000-1.030) Urine Protein (Negative) Urine Glucose (UA) (Negative) Urine Ketones (Negative) Urine Blood (Negative) Urine Nitrite (Negative) Urine Bilirubin (Negative) Urine Urobilinogen (Negative) Ur Leukocyte Esterase (Negative) Urine WBC (Auto) (0-5) /hpf Urine RBC (Auto) (0-4) /hpf U Hyaline Cast (Auto) (0-5) /lpf U Epithel Cells (Auto) (0-5) /lpf Urine Bacteria (Auto) (Negative) COVID-19 Eval Order CovFluRsv at [facility] SARS-CoV-2 (PCR) NEGATIVE (Negative) Influenza Type A (PCR) Negative (Neg) Influenza Type B (PCR) Negative (Neg) RSV (RT-PCR) Negative (Neg) 05/23/20 05/23/20 05/23/20 Range/Units 14:20 14:20 14:18 WBC 12.41 H (4.8-10.8) K/uL RBC 5.19 (4.7-6.1) M/uL Hgb 14.6 (14.0-18.0) g/dL Hct 41.8 L (42-52) % MCV 80.5 (80-100) fL MCH 28.1 (25-34) pg MCHC 34.9 (32-36) g/dL RDW Std Deviation 40.6 (36.4-46.3) fL RDW Coeff of Sesar 13.9 (11.5-14.5) % Plt Count 165 (130-400) K/uL MPV 9.5 (7.4-10.4) fL Immature Gran % (Auto) 0.2 % Neut % (Auto) 75.3 % Lymph % (Auto) 12.9 % Hale % (Auto) 9.0 % Eos % (Auto) 2.3 % Baso % (Auto) 0.3 % Neut # (Auto) 9.35 H (1.4-6.5) K/uL Lymph # (Auto) 1.60 (1.2-3.4) K/uL Hale # (Auto) 1.12 H (0.11-0.59) K/uL Eos # (Auto) 0.28 (0-0.5) K/uL Baso # (Auto) 0.04 (0-0.2) K/uL Immature Gran # (Auto) 0.02 (0.00-0.02) K/uL PT (9.0-12.0) Seconds INR (0.9-1.1) APTT (21.0-31.0) Seconds PTT Ratio Sodium 136 (136-145) mmol/L Potassium 4.4 (3.5-5.1) mmol/L Chloride 104 (98-107) mmol/L Carbon Dioxide 26 (21-32) mmol/L Anion Gap 6.0 (3-11) BUN 33 H (7-18) mg/dl Creatinine 1.83 H (0.6-1.4) mg/dl Est Cr Clr Drug Dosing 39.8 ml/min Est GFR ( Amer) 40.6 Est GFR (Non-Af Amer) 35.1 BUN/Creatinine Ratio 18.1 (10-20) Glucose 268 H (70-99) mg/dl Calcium 10.1 (8.5-10.1) mg/dl Total Bilirubin 0.4 (0.2-1) mg/dl AST 13 L (15-37) U/L ALT 19 (12-78) U/L Alkaline Phosphatase 80 (45-117) U/L Troponin I < 0.015 (0-0.045) ng/ml Total Protein 7.6 (6.4-8.2) gm/dl Albumin 3.8 (3.4-5.0) gm/dl Globulin 3.8 (2.5-4.0) gm/dl Albumin/Globulin Ratio 1.0 (0.9-2) Urine Color Yellow Urine Appearance Clear (Clear) Urine pH 5.0 (4.5-7.5) Ur Specific Pioneer 1.015 (1.000-1.030) Urine Protein 1+ H (Negative) Urine Glucose (UA) Negative (Negative) Urine Ketones Negative (Negative) Urine Blood Negative (Negative) Urine Nitrite Negative (Negative) Urine Bilirubin Negative (Negative) Urine Urobilinogen Negative (Negative) Ur Leukocyte Esterase Negative (Negative) Urine WBC (Auto) 1-5 (0-5) /hpf Urine RBC (Auto) 0-4 (0-4) /hpf U Hyaline Cast (Auto) 1-5 (0-5) /lpf U Epithel Cells (Auto) 0-5 (0-5) /lpf Urine Bacteria (Auto) Negative (Negative) COVID-19 Eval Order SARS-CoV-2 (PCR) (Negative) Influenza Type A (PCR) (Neg) Influenza Type B (PCR) (Neg) RSV (RT-PCR) (Neg) Diagnostic Findings Chest CTA IMPRESSION: 1. Cardiomegaly with bilateral pulmonary emboli, most pronounced in the right lower lobe. 2. No right heart strain or pulmonary infarct identified. 3. Trace right pleural effusion. 4. Right greater than left bibasilar predominant opacities suggestive of atelectasis. A nonspecific pneumonitis could appear similarly 5. 1.7 cm lesion of the superior pole right kidney suspicious for renal cell carcinoma. CXR IMPRESSION: 1. Cardiomegaly without pulmonary edema. 2. Mild bibasilar opacities suggest atelectasis or pneumonitis. 3. No pneumothorax. Thoracic spine CT IMPRESSION: 1. No acute fracture or subluxation. 2. Right lower lobe pulmonary emboli with trace right pleural effusion. 3. Exophytic 1.7 cm lesion of the superior pole right kidney suspicious for renal cell carcinoma. Medications Administered Current Inpatient Medications Acetaminophen (Acetaminophen 325 Mg Tab) 650 mg PO Q4H PRN PRN Reason: Pain or Fever Stop: 06/22/20 17:37 Dextrose (Dextrose 50% 50 Ml Syringe) 25 - 50 ml IV UD PRN; Protocol PRN Reason: Hypoglycemia Protocol Stop: 06/22/20 18:04 Glucagon (Glucagon For Inj 1 Mg Vial) 1 mg SQ UD PRN; Protocol PRN Reason: Hypoglycemia Protocol Stop: 06/22/20 18:04 Glucose (Glucose 10 Tabs/Tube) 4 - 8 tabs PO UD PRN; Protocol PRN Reason: Hypoglycemia Protocol Stop: 06/22/20 18:04 Glucose (Glucose 40% Gel 15 Gm Tube) 15 - 30 gm PO UD PRN; Protocol PRN Reason: Hypoglycemia Protocol Stop: 06/22/20 18:04 Heparin Sodium/Dextrose (Heparin Sodium/Dextrose) 25,000 units in 500 mls @ 28 mls/hr IV .[id number] [facility]; Protocol Stop: 06/22/20 15:59 Last Admin: 05/23/20 16:20 Dose: 1,400 units/hr, 28 mls/hr Documented by: Insulin Aspart (Insulin Aspart 100 Units/Ml 3 Ml Pen) 0 units SC ACHS [facility] Stop: 06/22/20 20:59 Lidocaine (Lidocaine 5% 1 Patch) 1 patch TD QAM [facility] Stop: 06/22/20 17:44 Miscellaneous (Remove Lidoderm Patch) 1 ea N/A DAILY@2100 [facility] Stop: 06/22/20 20:59 Miscellaneous (Carbohydrates For Hypoglycemia ) 15 - 30 gm PO UD PRN PRN Reason: Hypoglycemia Protocol Stop: 06/22/20 18:04 Morphine Sulfate (Morphine Sulfate 4 Mg/Ml 1 Ml Carp\Vial) 3 mg IV Q4H PRN PRN Reason: Pain Stop: 06/06/20 17:55 Oxycodone HCl (Oxycodone Hcl Ir 5 Mg Tab (Immediate Release)) 5 mg PO Q6H PRN PRN Reason: Pain Stop: 06/06/20 17:43 Polyethylene Glycol (Polyethylene (Miralax) 17 Gm Pack) 17 gm PO DAILY PRN PRN Reason: Constipation Stop: 06/22/20 17:37
[2020-05-23] MEDS ORDERED: HYDROmorphone INJ 0.5 MG/0.5 ML SYR IV PRN (18:34)
[2020-05-23] MEDS: oxyCODONE HCL IR 5 MG TAB (IMMEDIATE RELEASE) PO PRN (20:18)
[2020-05-23] MEDS: LIDOCAINE 5% 1 PATCH TD SCH (20:49)
[2020-05-23] MEDS: METOPROLOL TARTRATE 25 MG TAB PO SCH (20:51)
[2020-05-23] MEDS: TAMSULOSIN HCL 0.4 MG CAP PO SCH (20:51)
[2020-05-23] MEDS: INSULIN ASPART 100 UNITS/ML 3 ML PEN SC SCH (20:51)
[2020-05-23] MEDS: allopurinoL 100 MG TAB PO SCH (20:52)
[2020-05-23] MEDS ORDERED: KETOROLAC TROMETHAMINE 15 MG/ML VIAL IV ONE (22:22)
[2020-05-23 22:53] LABS: Partial Thromboplastin Ratio 2.2
[2020-05-23] MEDS: ACETAMINOPHEN 325 MG TAB PO PRN (22:55)
[2020-05-23] MEDS: HYDROmorphone INJ 0.5 MG/0.5 ML SYR IV PRN (23:50)
[2020-05-24] MEDS: oxyCODONE HCL IR 5 MG TAB (IMMEDIATE RELEASE) PO PRN ×2 (03:25→14:38)
[2020-05-24] MEDS: HYDROmorphone INJ 0.5 MG/0.5 ML SYR IV PRN ×3 (04:17→12:03)
--- NOTE | 2020-05-24 07:06 | Hospitalist Progress Note ---
Date of Service May 24, 2020 Assessment & Plan (1) Acute respiratory failure with hypoxia: (2) Acute pulmonary embolism: (3) Factor V Leiden mutation: Patient found hypoxic, currently on 4 L of oxygen mask in the ED CT PE - cardiomegaly with bilateral pulmonary emboli, most pronounced in the right lower lobe. No right heart strain or pulmonary infarct identified. Trace right pleural effusion. Right greater than left bibasilar predominant opacities suggestive of atelectasis. A nonspecific pneumonitis could appear similarly History of factor V Leiden mutation, however no prior history of thrombosis Patient is on high-dose aspirin at home In the ED patient was started on IV heparin, will continue Pain control with IV morphine and Dilaudid in the ED, will also add lidocaine patch, and p.o. oxycodone as needed Supplemental oxygen as needed Echo ordered - left ventricle is normal in size. There is moderate concentric LVH. LV wall motion is normal. LV is hyperdynamic. EF 65 to 70%. RV is normal in size and function. Doppler findings do not suggest pulmonary hypertension. Normal inferior vena cava diameter and respiratory variation suggesting normal central venous pressure. There is no significant valvular disease. (4) Renal mass: New indinetal finding on CT when eval for PE 1.7 cm lesion of the superior pole right kidney suspicious for renal cell carcinoma. - concern for renal cell carcinoma - will need further eval (5) Diabetes mellitus type 2 in nonobese: Last A1c 7.5% in 01/28/20 will check AM A1c - hold home glipizide, SSI while inpt - monitor blood glucose while inpt (6) CKD (chronic kidney disease) stage 3, GFR 30-59 ml/min: MARY on CKD stage 3 - baseline Cr 1.5-1.6 - Cr 1.83 on admission, currently down to 1.6 - s/p contrast to eval for PE - try to avoid other nephrotoxic agents - hold furosemide for now - monitor BMP (7) Hypertension: - cont. home diltiazem, metoprolol - monitor BP while inpt (8) GERD (gastroesophageal reflux disease): - cont. home omeprazole or its equivalent while inpt (9) BPH (benign prostatic hyperplasia): - cont. tamsulosin Code: Full Dispo: pt is from home, independent Admission and Anticipated Discharge Date Admission Date: May 23, 2020 Subjective Patient seen in follow-up of hypoxia, acute PE Currently laying in bed, in no acute distress, eating, clear liquid diet He is much more comfortable right now, does not complain of pain, however now on 8 L of supplemental O2 Will discuss with nursing staff to check pulse ox on patient's forehead for correct O2 sats Denies any abdominal pain, nausea or vomiting. Speaking without difficulty. Review of Systems Review of Systems: All systems reviewed & are unremarkable except as noted in HPI & below Constitutional: no fever and no chills Respiratory: + dyspnea (much improved) and + pain on inspiration (improved) Cardiovascular: no palpitations Gastrointestinal: no abdominal pain, no nausea and no vomiting Physical Exam Constitutional: WD/WN, vitals as above no acute distress Eyes: PERRL, conjunctivae normal, anicteric sclerae ENMT: external ear and nose normal, oropharynx normal Neck: trachea midline, no thyromegaly normal visual inspection Respiratory: no respiratory distress Auscultation: lungs clear to auscultation bilaterally and + rhonchi (mild bibasilar); no rales and no wheezes Cardiovascular: RRR, no murmur, no edema Chest (Breasts): Chest: normal inspection of chest Gastrointestinal (Abdomen): normal bowel sounds, soft, nontender, no hepatosplenomegaly Percussion/Palpation: abdomen soft; no guarding and abdomen not rigid Musculoskeletal: no cyanosis or clubbing, extremities motor strength 5/5 Head/Neck/Chest: normocephalic and head atraumatic Skin: no rashes, warm and dry Neurologic: PERRL, EOMI, accommodation nl, no face palsy, no dysarthria Psychiatric: A+Ox3, euthymic affect Genitourinary: no CVA tenderness Lymphatic: no lymphedema Results & Data Results & Data ([facility]) Vital Signs (Past 12 Hours) Vital Signs Temp Pulse Pulse Resp BP Pulse Ox 05/24/20 04:00 36.7 C 74 22 164/80 H 95 05/23/20 23:51 164/80 H 05/23/20 23:00 37.2 C 94 H 24 211/96 H 94 05/23/20 19:36 37.2 C 84 24 175/83 H 94 Laboratory Results 05/24/20 05/24/20 05/24/20 Range/Units 07:44 06:58 06:58 WBC (4.8-10.8) K/uL RBC (4.7-6.1) M/uL Hgb (14.0-18.0) g/dL Hct (42-52) % MCV (80-100) fL MCH (25-34) pg MCHC (32-36) g/dL RDW Std Deviation (36.4-46.3) fL RDW Coeff of Sesar (11.5-14.5) % Plt Count (130-400) K/uL MPV (7.4-10.4) fL Immature Gran % (Auto) % Neut % (Auto) % Lymph % (Auto) % [place] % (Auto) % Eos % (Auto) % Baso % (Auto) % Neut # (Auto) (1.4-6.5) K/uL Lymph # (Auto) (1.2-3.4) K/uL [place] # (Auto) (0.11-0.59) K/uL Eos # (Auto) (0-0.5) K/uL Baso # (Auto) (0-0.2) K/uL Immature Gran # (Auto) (0.00-0.02) K/uL PT (9.0-12.0) Seconds INR (0.9-1.1) APTT 59.5 H* (21.0-31.0) Seconds PTT Ratio 2.3 Sodium (136-145) mmol/L Potassium (3.5-5.1) mmol/L Chloride (98-107) mmol/L Carbon Dioxide (21-32) mmol/L Anion Gap (3-11) BUN (7-18) mg/dl Creatinine (0.6-1.4) mg/dl Est Cr Clr Drug Dosing ml/min Est GFR ( Amer) Est GFR (Non-Af Amer) BUN/Creatinine Ratio (10-20) Glucose (70-99) mg/dl POC Glucose 147 H (70-99) mg/dl Estimat Average Glucose Pending Hemoglobin A1c Pending Calcium (8.5-10.1) mg/dl Phosphorus (2.5-4.9) mg/dl Magnesium (1.8-2.4) mg/dl Total Bilirubin (0.2-1) mg/dl AST (15-37) U/L ALT (12-78) U/L Alkaline Phosphatase (45-117) U/L Troponin I (0-0.045) ng/ml Total Protein (6.4-8.2) gm/dl Albumin (3.4-5.0) gm/dl Globulin (2.5-4.0) gm/dl Albumin/Globulin Ratio (0.9-2) Urine Color Urine Appearance (Clear) Urine pH (4.5-7.5) Ur Specific [place] (1.000-1.030) Urine Protein (Negative) Urine Glucose (UA) (Negative) Urine Ketones (Negative) Urine Blood (Negative) Urine Nitrite (Negative) Urine Bilirubin (Negative) Urine Urobilinogen (Negative) Ur Leukocyte Esterase (Negative) Urine WBC (Auto) (0-5) /hpf Urine RBC (Auto) (0-4) /hpf U Hyaline Cast (Auto) (0-5) /lpf U Epithel Cells (Auto) (0-5) /lpf Urine Bacteria (Auto) (Negative) COVID-19 Eval Order SARS-CoV-2 (PCR) (Negative) Influenza Type A (PCR) (Neg) Influenza Type B (PCR) (Neg) RSV (RT-PCR) (Neg) 05/24/20 05/24/20 05/23/20 Range/Units 06:58 06:58 22:10 WBC 13.49 H (4.8-10.8) K/uL RBC 5.14 (4.7-6.1) M/uL Hgb 14.3 (14.0-18.0) g/dL Hct 41.9 L (42-52) % MCV 81.5 (80-100) fL MCH 27.8 (25-34) pg MCHC 34.1 (32-36) g/dL RDW Std Deviation 42.1 (36.4-46.3) fL RDW Coeff of Sesar 14.1 (11.5-14.5) % Plt Count 142 (130-400) K/uL MPV 9.3 (7.4-10.4) fL Immature Gran % (Auto) % Neut % (Auto) % Lymph % (Auto) % [place] % (Auto) % Eos % (Auto) % Baso % (Auto) % Neut # (Auto) (1.4-6.5) K/uL Lymph # (Auto) (1.2-3.4) K/uL [place] # (Auto) (0.11-0.59) K/uL Eos # (Auto) (0-0.5) K/uL Baso # (Auto) (0-0.2) K/uL Immature Gran # (Auto) (0.00-0.02) K/uL PT (9.0-12.0) Seconds INR (0.9-1.1) APTT 58.0 H* (21.0-31.0) Seconds PTT Ratio 2.2 Sodium 134 L (136-145) mmol/L Potassium 4.6 (3.5-5.1) mmol/L Chloride 101 (98-107) mmol/L Carbon Dioxide 28 (21-32) mmol/L Anion Gap 5.0 (3-11) BUN 30 H (7-18) mg/dl Creatinine 1.60 H (0.6-1.4) mg/dl Est Cr Clr Drug Dosing 44.1 ml/min Est GFR ( Amer) 47.8 Est GFR (Non-Af Amer) 41.2 BUN/Creatinine Ratio 18.8 (10-20) Glucose 155 H (70-99) mg/dl POC Glucose (70-99) mg/dl Estimat Average Glucose Hemoglobin A1c Calcium 8.9 (8.5-10.1) mg/dl Phosphorus 3.4 (2.5-4.9) mg/dl Magnesium 2.1 (1.8-2.4) mg/dl Total Bilirubin 0.6 (0.2-1) mg/dl AST 8 L (15-37) U/L ALT 19 (12-78) U/L Alkaline Phosphatase 74 (45-117) U/L Troponin I (0-0.045) ng/ml Total Protein 7.4 (6.4-8.2) gm/dl Albumin 3.4 (3.4-5.0) gm/dl Globulin 4.0 (2.5-4.0) gm/dl Albumin/Globulin Ratio 0.9 (0.9-2) Urine Color Urine Appearance (Clear) Urine pH (4.5-7.5) Ur Specific [place] (1.000-1.030) Urine Protein (Negative) Urine Glucose (UA) (Negative) Urine Ketones (Negative) Urine Blood (Negative) Urine Nitrite (Negative) Urine Bilirubin (Negative) Urine Urobilinogen (Negative) Ur Leukocyte Esterase (Negative) Urine WBC (Auto) (0-5) /hpf Urine RBC (Auto) (0-4) /hpf U Hyaline Cast (Auto) (0-5) /lpf U Epithel Cells (Auto) (0-5) /lpf Urine Bacteria (Auto) (Negative) COVID-19 Eval Order SARS-CoV-2 (PCR) (Negative) Influenza Type A (PCR) (Neg) Influenza Type B (PCR) (Neg) RSV (RT-PCR) (Neg) 05/23/20 05/23/20 05/23/20 Range/Units 20:48 16:01 15:55 WBC (4.8-10.8) K/uL RBC (4.7-6.1) M/uL Hgb (14.0-18.0) g/dL Hct (42-52) % MCV (80-100) fL MCH (25-34) pg MCHC (32-36) g/dL RDW Std Deviation (36.4-46.3) fL RDW Coeff of Sesar (11.5-14.5) % Plt Count (130-400) K/uL MPV (7.4-10.4) fL Immature Gran % (Auto) % Neut % (Auto) % Lymph % (Auto) % [place] % (Auto) % Eos % (Auto) % Baso % (Auto) % Neut # (Auto) (1.4-6.5) K/uL Lymph # (Auto) (1.2-3.4) K/uL [place] # (Auto) (0.11-0.59) K/uL Eos # (Auto) (0-0.5) K/uL Baso # (Auto) (0-0.2) K/uL Immature Gran # (Auto) (0.00-0.02) K/uL PT 9.6 (9.0-12.0) Seconds INR 0.9 (0.9-1.1) APTT 25.6 (21.0-31.0) Seconds PTT Ratio 1.0 Sodium (136-145) mmol/L Potassium (3.5-5.1) mmol/L Chloride (98-107) mmol/L Carbon Dioxide (21-32) mmol/L Anion Gap (3-11) BUN (7-18) mg/dl Creatinine (0.6-1.4) mg/dl Est Cr Clr Drug Dosing ml/min Est GFR ( Amer) Est GFR (Non-Af Amer) BUN/Creatinine Ratio (10-20) Glucose (70-99) mg/dl POC Glucose 221 H (70-99) mg/dl Estimat Average Glucose Hemoglobin A1c Calcium (8.5-10.1) mg/dl Phosphorus (2.5-4.9) mg/dl Magnesium (1.8-2.4) mg/dl Total Bilirubin (0.2-1) mg/dl AST (15-37) U/L ALT (12-78) U/L Alkaline Phosphatase (45-117) U/L Troponin I (0-0.045) ng/ml Total Protein (6.4-8.2) gm/dl Albumin (3.4-5.0) gm/dl Globulin (2.5-4.0) gm/dl Albumin/Globulin Ratio (0.9-2) Urine Color Urine Appearance (Clear) Urine pH (4.5-7.5) Ur Specific [place] (1.000-1.030) Urine Protein (Negative) Urine Glucose (UA) (Negative) Urine Ketones (Negative) Urine Blood (Negative) Urine Nitrite (Negative) Urine Bilirubin (Negative) Urine Urobilinogen (Negative) Ur Leukocyte Esterase (Negative) Urine WBC (Auto) (0-5) /hpf Urine RBC (Auto) (0-4) /hpf U Hyaline Cast (Auto) (0-5) /lpf U Epithel Cells (Auto) (0-5) /lpf Urine Bacteria (Auto) (Negative) COVID-19 Eval Order SARS-CoV-2 (PCR) NEGATIVE (Negative) Influenza Type A (PCR) Negative (Neg) Influenza Type B (PCR) Negative (Neg) RSV (RT-PCR) Negative (Neg) 05/23/20 05/23/20 05/23/20 Range/Units 15:55 14:20 14:20 WBC 12.41 H (4.8-10.8) K/uL RBC 5.19 (4.7-6.1) M/uL Hgb 14.6 (14.0-18.0) g/dL Hct 41.8 L (42-52) % MCV 80.5 (80-100) fL MCH 28.1 (25-34) pg MCHC 34.9 (32-36) g/dL RDW Std Deviation 40.6 (36.4-46.3) fL RDW Coeff of Sesar 13.9 (11.5-14.5) % Plt Count 165 (130-400) K/uL MPV 9.5 (7.4-10.4) fL Immature Gran % (Auto) 0.2 % Neut % (Auto) 75.3 % Lymph % (Auto) 12.9 % [place] % (Auto) 9.0 % Eos % (Auto) 2.3 % Baso % (Auto) 0.3 % Neut # (Auto) 9.35 H (1.4-6.5) K/uL Lymph # (Auto) 1.60 (1.2-3.4) K/uL [place] # (Auto) 1.12 H (0.11-0.59) K/uL Eos # (Auto) 0.28 (0-0.5) K/uL Baso # (Auto) 0.04 (0-0.2) K/uL Immature Gran # (Auto) 0.02 (0.00-0.02) K/uL PT (9.0-12.0) Seconds INR (0.9-1.1) APTT (21.0-31.0) Seconds PTT Ratio Sodium 136 (136-145) mmol/L Potassium 4.4 (3.5-5.1) mmol/L Chloride 104 (98-107) mmol/L Carbon Dioxide 26 (21-32) mmol/L Anion Gap 6.0 (3-11) BUN 33 H (7-18) mg/dl Creatinine 1.83 H (0.6-1.4) mg/dl Est Cr Clr Drug Dosing 39.8 ml/min Est GFR ( Amer) 40.6 Est GFR (Non-Af Amer) 35.1 BUN/Creatinine Ratio 18.1 (10-20) Glucose 268 H (70-99) mg/dl POC Glucose (70-99) mg/dl Estimat Average Glucose Hemoglobin A1c Calcium 10.1 (8.5-10.1) mg/dl Phosphorus (2.5-4.9) mg/dl Magnesium (1.8-2.4) mg/dl Total Bilirubin 0.4 (0.2-1) mg/dl AST 13 L (15-37) U/L ALT 19 (12-78) U/L Alkaline Phosphatase 80 (45-117) U/L Troponin I < 0.015 (0-0.045) ng/ml Total Protein 7.6 (6.4-8.2) gm/dl Albumin 3.8 (3.4-5.0) gm/dl Globulin 3.8 (2.5-4.0) gm/dl Albumin/Globulin Ratio 1.0 (0.9-2) Urine Color Urine Appearance (Clear) Urine pH (4.5-7.5) Ur Specific [place] (1.000-1.030) Urine Protein (Negative) Urine Glucose (UA) (Negative) Urine Ketones (Negative) Urine Blood (Negative) Urine Nitrite (Negative) Urine Bilirubin (Negative) Urine Urobilinogen (Negative) Ur Leukocyte Esterase (Negative) Urine WBC (Auto) (0-5) /hpf Urine RBC (Auto) (0-4) /hpf U Hyaline Cast (Auto) (0-5) /lpf U Epithel Cells (Auto) (0-5) /lpf Urine Bacteria (Auto) (Negative) COVID-19 Eval Order [facility]Rsv at [facility] SARS-CoV-2 (PCR) (Negative) Influenza Type A (PCR) (Neg) Influenza Type B (PCR) (Neg) RSV (RT-PCR) (Neg) 05/23/20 Range/Units 14:18 WBC (4.8-10.8) K/uL RBC (4.7-6.1) M/uL Hgb (14.0-18.0) g/dL Hct (42-52) % MCV (80-100) fL MCH (25-34) pg MCHC (32-36) g/dL RDW Std Deviation (36.4-46.3) fL RDW Coeff of Sesar (11.5-14.5) % Plt Count (130-400) K/uL MPV (7.4-10.4) fL Immature Gran % (Auto) % Neut % (Auto) % Lymph % (Auto) % [place] % (Auto) % Eos % (Auto) % Baso % (Auto) % Neut # (Auto) (1.4-6.5) K/uL Lymph # (Auto) (1.2-3.4) K/uL [place] # (Auto) (0.11-0.59) K/uL Eos # (Auto) (0-0.5) K/uL Baso # (Auto) (0-0.2) K/uL Immature Gran # (Auto) (0.00-0.02) K/uL PT (9.0-12.0) Seconds INR (0.9-1.1) APTT (21.0-31.0) Seconds PTT Ratio Sodium (136-145) mmol/L Potassium (3.5-5.1) mmol/L Chloride (98-107) mmol/L Carbon Dioxide (21-32) mmol/L Anion Gap (3-11) BUN (7-18) mg/dl Creatinine (0.6-1.4) mg/dl Est Cr Clr Drug Dosing ml/min Est GFR ( Amer) Est GFR (Non-Af Amer) BUN/Creatinine Ratio (10-20) Glucose (70-99) mg/dl POC Glucose (70-99) mg/dl Estimat Average Glucose Hemoglobin A1c Calcium (8.5-10.1) mg/dl Phosphorus (2.5-4.9) mg/dl Magnesium (1.8-2.4) mg/dl Total Bilirubin (0.2-1) mg/dl AST (15-37) U/L ALT (12-78) U/L Alkaline Phosphatase (45-117) U/L Troponin I (0-0.045) ng/ml Total Protein (6.4-8.2) gm/dl Albumin (3.4-5.0) gm/dl Globulin (2.5-4.0) gm/dl Albumin/Globulin Ratio (0.9-2) Urine Color Yellow Urine Appearance Clear (Clear) Urine pH 5.0 (4.5-7.5) Ur Specific [place] 1.015 (1.000-1.030) Urine Protein 1+ H (Negative) Urine Glucose (UA) Negative (Negative) Urine Ketones Negative (Negative) Urine Blood Negative (Negative) Urine Nitrite Negative (Negative) Urine Bilirubin Negative (Negative) Urine Urobilinogen Negative (Negative) Ur Leukocyte Esterase Negative (Negative) Urine WBC (Auto) 1-5 (0-5) /hpf Urine RBC (Auto) 0-4 (0-4) /hpf U Hyaline Cast (Auto) 1-5 (0-5) /lpf U Epithel Cells (Auto) 0-5 (0-5) /lpf Urine Bacteria (Auto) Negative (Negative) COVID-19 Eval Order SARS-CoV-2 (PCR) (Negative) Influenza Type A (PCR) (Neg) Influenza Type B (PCR) (Neg) RSV (RT-PCR) (Neg) Medications Administered Current Inpatient Medications Acetaminophen (Acetaminophen 325 Mg Tab) 650 mg PO Q4H PRN PRN Reason: Pain (1,2,3 or 4) or Fever Stop: 06/22/20 17:37 Last Admin: 05/24/20 07:59 Dose: 650 mg Documented by: Allopurinol (Allopurinol 100 Mg Tab) 100 mg PO BID [facility] Stop: 06/22/20 20:59 Last Admin: 05/24/20 08:00 Dose: 100 mg Documented by: Aspirin (Aspirin 81 Mg Ectab) 162 mg PO QAM [facility] Stop: 06/23/20 08:59 Last Admin: 05/24/20 08:01 Dose: 162 mg Documented by: Dextrose (Dextrose 50% 50 Ml Syringe) 25 - 50 ml IV UD PRN; Protocol PRN Reason: Hypoglycemia Protocol Stop: 06/22/20 18:04 Diltiazem HCl (Diltiazem Hcl 180 Mg Er Cap) 360 mg PO DAILY [facility] Stop: 06/23/20 08:59 Last Admin: 05/24/20 08:01 Dose: 360 mg Documented by: Glucagon (Glucagon For Inj 1 Mg Vial) 1 mg SQ UD PRN; Protocol PRN Reason: Hypoglycemia Protocol Stop: 06/22/20 18:04 Glucose (Glucose 10 Tabs/Tube) 4 - 8 tabs PO UD PRN; Protocol PRN Reason: Hypoglycemia Protocol Stop: 06/22/20 18:04 Glucose (Glucose 40% Gel 15 Gm Tube) 15 - 30 gm PO UD PRN; Protocol PRN Reason: Hypoglycemia Protocol Stop: 06/22/20 18:04 Hydromorphone HCl (Hydromorphone Inj 0.5 Mg/0.5 Ml Syr) 1 mg IV Q4H PRN PRN Reason: Pain (8, 9, or 10) Stop: 06/06/20 18:33 Last Admin: 05/24/20 08:03 Dose: 1 mg Documented by: Heparin Sodium/Dextrose (Heparin Sodium/Dextrose) 25,000 units in 500 mls @ 28 mls/hr IV .[id number] [facility]; Protocol Stop: 06/22/20 15:59 Last Titration: 05/23/20 23:06 Dose: 1,400 units/hr, 28 mls/hr Documented by: Insulin Aspart (Insulin Aspart 100 Units/Ml 3 Ml Pen) 0 units SC ACHS [facility] Stop: 06/22/20 20:59 Last Admin: 05/24/20 08:09 Dose: 2 units Documented by: Ketorolac Tromethamine (Ketorolac Tromethamine 15 Mg/Ml Vial) 15 mg IV Q6H PRN PRN Reason: Pain Stop: 05/29/20 07:34 Last Admin: 05/24/20 08:00 Dose: 15 mg Documented by: Lidocaine (Lidocaine 5% 1 Patch) 1 patch TD QAM [facility] Stop: 06/22/20 18:59 Last Admin: 05/24/20 08:01 Dose: 1 patch Documented by: Metoprolol Tartrate (Metoprolol Tartrate 25 Mg Tab) 25 mg PO BID [facility] Stop: 06/22/20 20:59 Last Admin: 05/24/20 08:00 Dose: 25 mg Documented by: Miscellaneous (Remove Lidoderm Patch) 1 ea N/A DAILY@2100 [facility] Stop: 06/23/20 00:00 Last Admin: 05/24/20 00:01 Dose: 1 ea Documented by: Miscellaneous (Carbohydrates For Hypoglycemia ) 15 - 30 gm PO UD PRN PRN Reason: Hypoglycemia Protocol Stop: 06/22/20 18:04 Oxycodone HCl (Oxycodone Hcl Ir 5 Mg Tab (Immediate Release)) 5 mg PO Q6H PRN PRN Reason: Pain (5, 6, or 7) Stop: 06/06/20 17:43 Last Admin: 05/24/20 03:25 Dose: 5 mg Documented by: Pantoprazole Sodium (Pantoprazole 40 Mg Tab) 40 mg PO DAILY [facility]; Protocol Stop: 06/23/20 08:59 Last Admin: 05/24/20 08:01 Dose: 40 mg Documented by: Polyethylene Glycol (Polyethylene (Miralax) 17 Gm Pack) 17 gm PO DAILY PRN PRN Reason: Constipation Stop: 06/22/20 17:37 Tamsulosin HCl (Tamsulosin Hcl 0.4 Mg Cap) 0.4 mg PO HS TRES Stop: 06/22/20 20:59 Last Admin: 05/23/20 20:51 Dose: 0.4 mg Documented by: (1) Acute pulmonary embolism Acute cor pulmonale presence: unspecified Pulmonary embolism type: unspecified Qualified Code(s): I26.99 - Other pulmonary embolism without acute cor pulmonale (2) CKD (chronic kidney disease) stage 3, GFR 30-59 ml/min Chronic kidney disease stage 3 subtype: unspecified whether 3a or 3b Qualified Code(s): N18.30 - Chronic kidney disease, stage 3 unspecified
[2020-05-24 07:21] LABS: Hematocrit (blood only) 41.9 % (42-52); Hemoglobin 14.3 g/dL (14.0-18.0); Mean Corpuscular Hemoglobin 27.8 pg (25-34); Mean Corpuscular Hgb Conc 34.1 g/dL (32-36); Mean Corpuscular Volume 81.5 fL (80-100); Mean Platelet Volume 9.3 fL (7.4-10.4); Platelet Count 142 K/uL (130-400); RDW Coefficient of Variation 14.1 % (11.5-14.5); RDW Standard Deviation 42.1 fL (36.4-46.3); Red Blood Count 5.14 M/uL (4.7-6.1); White Blood Count 13.49 K/uL (4.8-10.8)
[2020-05-24 07:47] LABS: Albumin Level 3.4 gm/dl (3.4-5.0); BUN Creatinine Ratio 18.8 (10-20); Calcium 8.9 mg/dl (8.5-10.1); Creatinine Clr Calc Pharmacy 44.1 ml/min; Est GFR (African American) 47.8; Est GFR (Non-African American) 41.2; Magnesium 2.1 mg/dl (1.8-2.4); Potassium 4.6 mmol/L (3.5-5.1)
[2020-05-24 07:49] LABS: Albumin Globulin Ratio 0.9 (0.9-2); Bilirubin,Total 0.6 mg/dl (0.2-1); Phosphorus 3.4 mg/dl (2.5-4.9); Total Protein 7.4 gm/dl (6.4-8.2)
[2020-05-24 07:53] LABS: Partial Thromboplastin Ratio 2.3
[2020-05-24 07:55] LABS: Partial Thromboplastin Time 59.5 Seconds (21.0-31.0)
[2020-05-24] MEDS: ACETAMINOPHEN 325 MG TAB PO PRN ×2 (07:59→14:39)
[2020-05-24] MEDS: allopurinoL 100 MG TAB PO SCH ×2 (08:00→21:11)
[2020-05-24] MEDS: METOPROLOL TARTRATE 25 MG TAB PO SCH ×2 (08:00→21:10)
[2020-05-24] MEDS: KETOROLAC TROMETHAMINE 15 MG/ML VIAL IV PRN ×2 (08:00→14:40)
[2020-05-24] MEDS: ASPIRIN 81 MG ECTAB PO SCH (08:01)
[2020-05-24] MEDS: PANTOprazole 40 MG TAB PO SCH (08:01)
[2020-05-24] MEDS: LIDOCAINE 5% 1 PATCH TD SCH (08:01)
[2020-05-24] MEDS: INSULIN ASPART 100 UNITS/ML 3 ML PEN SC SCH ×4 (08:09→21:11)
[2020-05-24] MEDS ORDERED: FUROSEMIDE 20 MG TAB PO SCH (09:00)
[2020-05-24] MEDS: HEPARIN SODIUM/DEXTROSE 25,000 UNITS/500 ML BAG IV SCH (10:12)
--- NOTE | 2020-05-24 12:56 | Electrocardiogram Report ---
Test Reason : Blood Pressure : / mmHG Vent. Rate : 093 BPM Atrial Rate : 093 BPM P-R Int : 166 ms QRS Dur : 092 ms QT Int : 352 ms P-R-T Axes : 052 -25 064 degrees QTc Int : 437 ms Normal sinus rhythm Possible Left atrial enlargement Incomplete right bundle branch block Borderline ECG Confirmed by Amaury Martínez ([id number]) on 05/24/2020 12:55:44 PM Referred By: REFERRED SELF Confirmed By:Jonh Martínez
[2020-05-24] MEDS: TAMSULOSIN HCL 0.4 MG CAP PO SCH (21:11)
[2020-05-24] MEDS ORDERED: COUGH DROP (SUGAR FREE) LOZ 24 LOZ/1 BOX BUCCAL PRN ×2 (21:31→21:51)
[2020-05-24] MEDS ORDERED: COUGH DROP (SUGAR FREE) LOZ 24 LOZ/1 BOX BUCCAL ONE (21:33)
[2020-05-25] MEDS: HEPARIN SODIUM/DEXTROSE 25,000 UNITS/500 ML BAG IV SCH ×2 (02:08→18:36)
[2020-05-25 06:09] LABS: Estimated Average Glucose 171 mg/dl; Hemoglobin A1C 7.6 % (4.5-5.6)
[2020-05-25 07:09] LABS: Hematocrit (blood only) 37.5 % (42-52); Hemoglobin 13.2 g/dL (14.0-18.0); Mean Corpuscular Hemoglobin 28.1 pg (25-34); Mean Corpuscular Hgb Conc 35.2 g/dL (32-36); Mean Corpuscular Volume 79.8 fL (80-100); Mean Platelet Volume 9.7 fL (7.4-10.4); Platelet Count 148 K/uL (130-400); RDW Coefficient of Variation 13.6 % (11.5-14.5); RDW Standard Deviation 38.9 fL (36.4-46.3); White Blood Count 11.29 K/uL (4.8-10.8)
--- NOTE | 2020-05-25 07:29 | Hospitalist Progress Note ---
Date of Service May 25, 2020 Assessment & Plan (1) Acute respiratory failure with hypoxia: (2) Acute pulmonary embolism: likely secondary to factor V Leiden mutation (3) Factor V Leiden mutation: Patient found hypoxic, currently on 4 L of oxygen mask in the ED CT PE - cardiomegaly with bilateral pulmonary emboli, most pronounced in the right lower lobe. No right heart strain or pulmonary infarct identified. Trace right pleural effusion. Right greater than left bibasilar predominant opacities suggestive of atelectasis. A nonspecific pneumonitis could appear similarly History of factor V Leiden mutation, however no prior history of thrombosis Patient is on high-dose aspirin at home In the ED patient was started on IV heparin, will continue Pain control with IV morphine and Dilaudid in the ED, will also add lidocaine patch, and p.o. oxycodone as needed Supplemental oxygen as needed Echo ordered - left ventricle is normal in size. There is moderate concentric LVH. LV wall motion is normal. LV is hyperdynamic. EF 65 to 70%. RV is normal in size and function. Doppler findings do not suggest pulmonary hypertension. Normal inferior vena cava diameter and respiratory variation suggesting normal central venous pressure. There is no significant valvular disease. (4) Renal mass: New indinetal finding on CT when eval for PE 1.7 cm lesion of the superior pole right kidney suspicious for renal cell carcinoma. - concern for renal cell carcinoma - will need further eval (5) Diabetes mellitus type 2 in nonobese: Last A1c 7.5% in 01/28/20 will check AM A1c - hold home glipizide, SSI while inpt - monitor blood glucose while inpt (6) CKD (chronic kidney disease) stage 3, GFR 30-59 ml/min: MARY on CKD stage 3 - baseline Cr 1.5-1.6 - Cr 1.83 on admission - then 1.6-1.8 - s/p contrast to eval for PE - try to avoid other nephrotoxic agents - held furosemide initially, will resume - monitor BMP (7) Hypertension: - cont. home diltiazem, metoprolol - monitor BP while inpt (8) GERD (gastroesophageal reflux disease): - cont. home omeprazole or its equivalent while inpt (9) BPH (benign prostatic hyperplasia): - cont. tamsulosin Code: Full Dispo: pt is from home, independent Admission and Anticipated Discharge Date Admission Date: May 23, 2020 Subjective Patient seen in follow-up of hypoxia, acute PE Currently laying in bed, in no acute distress Developed Afib w/ RVR this AM IV metoprolol provided, continue to closely monitor on telemetry, cardiology consulted. Patient denies having any palpitations, or chest pain besides pain on inspiration Denies any abdominal pain, nausea or vomiting. Speaking without difficulty. Review of Systems Review of Systems: All systems reviewed & are unremarkable except as noted in HPI & below Constitutional: no fever and no chills Respiratory: + dyspnea (much improved) and + pain on inspiration (improved) Cardiovascular: no chest pain and no palpitations Gastrointestinal: no abdominal pain, no nausea and no vomiting Physical Exam Constitutional: WD/WN, vitals as above no acute distress Eyes: PERRL, conjunctivae normal, anicteric sclerae ENMT: external ear and nose normal, oropharynx normal Neck: trachea midline, no thyromegaly normal visual inspection Respiratory: no respiratory distress Auscultation: lungs clear to auscultation bilaterally and + rhonchi (mild bibasilar); no rales and no wheezes Cardiovascular: RRR, no murmur, no edema Chest (Breasts): Chest: normal inspection of chest Gastrointestinal (Abdomen): normal bowel sounds, soft, nontender, no hepatosplenomegaly Percussion/Palpation: abdomen soft; no guarding and abdomen not rigid Musculoskeletal: no cyanosis or clubbing, extremities motor strength 5/5 Head/Neck/Chest: normocephalic and head atraumatic Skin: no rashes, warm and dry Neurologic: PERRL, EOMI, accommodation nl, no face palsy, no dysarthria Psychiatric: A+Ox3, euthymic affect Genitourinary: no CVA tenderness Lymphatic: no lymphedema Results & Data Results & Data ([facility]) Vital Signs (Past 12 Hours) Vital Signs Temp Pulse Pulse Resp BP Pulse Ox 05/25/20 03:40 36.8 C 86 21 176/74 H 94 05/24/20 23:23 77 05/24/20 22:47 36.5 C 83 19 150/69 H 88 L 05/24/20 19:32 37.1 C 81 19 143/66 H 92 Laboratory Results 05/25/20 05/25/20 05/25/20 Range/Units 07:18 07:17 06:37 WBC (4.8-10.8) K/uL RBC (4.7-6.1) M/uL Hgb (14.0-18.0) g/dL Hct (42-52) % MCV (80-100) fL MCH (25-34) pg MCHC (32-36) g/dL RDW Std Deviation (36.4-46.3) fL RDW Coeff of Sesar (11.5-14.5) % Plt Count (130-400) K/uL MPV (7.4-10.4) fL APTT 61.8 H* (21.0-31.0) Seconds PTT Ratio 2.3 Sodium 133 L (136-145) mmol/L Potassium 4.1 (3.5-5.1) mmol/L Chloride 101 (98-107) mmol/L Carbon Dioxide 28 (21-32) mmol/L Anion Gap 4.0 (3-11) BUN 29 H (7-18) mg/dl Creatinine 1.78 H (0.6-1.4) mg/dl Est Cr Clr Drug Dosing 39.9 ml/min Est GFR ( Amer) 42.0 Est GFR (Non-Af Amer) 36.2 BUN/Creatinine Ratio 16.2 (10-20) Glucose 167 H (70-99) mg/dl POC Glucose 182 H (70-99) mg/dl Estimat Average Glucose mg/dl Hemoglobin A1c (4.5-5.6) % Calcium 8.6 (8.5-10.1) mg/dl Phosphorus 2.2 L D (2.5-4.9) mg/dl Magnesium 2.2 (1.8-2.4) mg/dl Total Bilirubin 0.6 (0.2-1) mg/dl AST 9 L (15-37) U/L ALT 15 (12-78) U/L Alkaline Phosphatase 65 (45-117) U/L Total Protein 6.6 (6.4-8.2) gm/dl Albumin 2.9 L (3.4-5.0) gm/dl Globulin 3.7 (2.5-4.0) gm/dl Albumin/Globulin Ratio 0.8 L (0.9-2) 05/25/20 05/24/20 05/24/20 Range/Units 06:37 20:44 16:18 WBC 11.29 H (4.8-10.8) K/uL RBC 4.70 (4.7-6.1) M/uL Hgb 13.2 L (14.0-18.0) g/dL Hct 37.5 L (42-52) % MCV 79.8 L (80-100) fL MCH 28.1 (25-34) pg MCHC 35.2 (32-36) g/dL RDW Std Deviation 38.9 (36.4-46.3) fL RDW Coeff of Sesar 13.6 (11.5-14.5) % Plt Count 148 (130-400) K/uL MPV 9.7 (7.4-10.4) fL APTT (21.0-31.0) Seconds PTT Ratio Sodium (136-145) mmol/L Potassium (3.5-5.1) mmol/L Chloride (98-107) mmol/L Carbon Dioxide (21-32) mmol/L Anion Gap (3-11) BUN (7-18) mg/dl Creatinine (0.6-1.4) mg/dl Est Cr Clr Drug Dosing ml/min Est GFR ( Amer) Est GFR (Non-Af Amer) BUN/Creatinine Ratio (10-20) Glucose (70-99) mg/dl POC Glucose 225 H 165 H (70-99) mg/dl Estimat Average Glucose mg/dl Hemoglobin A1c (4.5-5.6) % Calcium (8.5-10.1) mg/dl Phosphorus (2.5-4.9) mg/dl Magnesium (1.8-2.4) mg/dl Total Bilirubin (0.2-1) mg/dl AST (15-37) U/L ALT (12-78) U/L Alkaline Phosphatase (45-117) U/L Total Protein (6.4-8.2) gm/dl Albumin (3.4-5.0) gm/dl Globulin (2.5-4.0) gm/dl Albumin/Globulin Ratio (0.9-2) 05/24/20 05/24/20 Range/Units 11:18 06:58 WBC (4.8-10.8) K/uL RBC (4.7-6.1) M/uL Hgb (14.0-18.0) g/dL Hct (42-52) % MCV (80-100) fL MCH (25-34) pg MCHC (32-36) g/dL RDW Std Deviation (36.4-46.3) fL RDW Coeff of Sesar (11.5-14.5) % Plt Count (130-400) K/uL MPV (7.4-10.4) fL APTT (21.0-31.0) Seconds PTT Ratio Sodium (136-145) mmol/L Potassium (3.5-5.1) mmol/L Chloride (98-107) mmol/L Carbon Dioxide (21-32) mmol/L Anion Gap (3-11) BUN (7-18) mg/dl Creatinine (0.6-1.4) mg/dl Est Cr Clr Drug Dosing ml/min Est GFR ( Amer) Est GFR (Non-Af Amer) BUN/Creatinine Ratio (10-20) Glucose (70-99) mg/dl POC Glucose 216 H (70-99) mg/dl Estimat Average Glucose 171 mg/dl Hemoglobin A1c 7.6 H (4.5-5.6) % Calcium (8.5-10.1) mg/dl Phosphorus (2.5-4.9) mg/dl Magnesium (1.8-2.4) mg/dl Total Bilirubin (0.2-1) mg/dl AST (15-37) U/L ALT (12-78) U/L Alkaline Phosphatase (45-117) U/L Total Protein (6.4-8.2) gm/dl Albumin (3.4-5.0) gm/dl Globulin (2.5-4.0) gm/dl Albumin/Globulin Ratio (0.9-2) Medications Administered Current Inpatient Medications Acetaminophen (Acetaminophen 325 Mg Tab) 650 mg PO Q4H PRN PRN Reason: Pain (1,2,3 or 4) or Fever Stop: 06/22/20 17:37 Last Admin: 05/24/20 14:39 Dose: 650 mg Documented by: Allopurinol (Allopurinol 100 Mg Tab) 100 mg PO BID TRES Stop: 06/22/20 20:59 Last Admin: 05/25/20 08:05 Dose: 100 mg Documented by: Aspirin (Aspirin 81 Mg Ectab) 162 mg PO QAM [facility] Stop: 06/23/20 08:59 Last Admin: 05/25/20 08:06 Dose: 162 mg Documented by: Dextrose (Dextrose 50% 50 Ml Syringe) 25 - 50 ml IV UD PRN; Protocol PRN Reason: Hypoglycemia Protocol Stop: 06/22/20 18:04 Diltiazem HCl (Diltiazem Hcl 180 Mg Er Cap) 360 mg PO DAILY [facility] Stop: 06/23/20 08:59 Last Admin: 05/25/20 08:06 Dose: 360 mg Documented by: Furosemide (Furosemide 20 Mg Tab) 20 mg PO QAM [facility] Stop: 06/24/20 08:59 Last Admin: 05/25/20 08:05 Dose: 20 mg Documented by: Glucagon (Glucagon For Inj 1 Mg Vial) 1 mg SQ UD PRN; Protocol PRN Reason: Hypoglycemia Protocol Stop: 06/22/20 18:04 Glucose (Glucose 10 Tabs/Tube) 4 - 8 tabs PO UD PRN; Protocol PRN Reason: Hypoglycemia Protocol Stop: 06/22/20 18:04 Glucose (Glucose 40% Gel 15 Gm Tube) 15 - 30 gm PO UD PRN; Protocol PRN Reason: Hypoglycemia Protocol Stop: 06/22/20 18:04 Hydromorphone HCl (Hydromorphone Inj 0.5 Mg/0.5 Ml Syr) 0.5 mg IV Q4H PRN PRN Reason: Pain (8, 9, or 10) Stop: 06/06/20 18:33 Last Admin: 05/25/20 08:18 Dose: 0.5 mg Documented by: Heparin Sodium/Dextrose (Heparin Sodium/Dextrose) 25,000 units in 500 mls @ 28 mls/hr IV .[id number] [facility]; Protocol Stop: 06/22/20 15:59 Last Titration: 05/25/20 08:23 Dose: 1,400 units/hr, 28 mls/hr Documented by: Insulin Aspart (Insulin Aspart 100 Units/Ml 3 Ml Pen) 0 units SC ACHS [facility] Stop: 06/22/20 20:59 Last Admin: 05/25/20 08:02 Dose: 4 units Documented by: Ketorolac Tromethamine (Ketorolac Tromethamine 15 Mg/Ml Vial) 15 mg IV Q6H PRN PRN Reason: Pain Stop: 05/29/20 07:34 Last Admin: 05/24/20 14:40 Dose: 15 mg Documented by: Lidocaine (Lidocaine 5% 1 Patch) 1 patch TD QAM [facility] Stop: 06/22/20 18:59 Last Admin: 05/25/20 08:07 Dose: 1 patch Documented by: Menthol (Cough Drop (Sugar Free) Kael 24 Kael/1 Box) 1 kael BUCCAL Q1H PRN PRN Reason: Sore Throat Stop: 06/23/20 21:50 Metoprolol Tartrate (Metoprolol Tartrate 25 Mg Tab) 25 mg PO BID [facility] Stop: 06/22/20 20:59 Last Admin: 05/25/20 08:06 Dose: 25 mg Documented by: Miscellaneous (Remove Lidoderm Patch) 1 ea N/A DAILY@2100 [facility] Stop: 06/23/20 00:00 Last Admin: 05/24/20 21:11 Dose: 1 ea Documented by: Miscellaneous (Carbohydrates For Hypoglycemia ) 15 - 30 gm PO UD PRN PRN Reason: Hypoglycemia Protocol Stop: 06/22/20 18:04 Oxycodone HCl (Oxycodone Hcl Ir 5 Mg Tab (Immediate Release)) 5 mg PO Q6H PRN PRN Reason: Pain (5, 6, or 7) Stop: 06/06/20 17:43 Last Admin: 05/24/20 14:38 Dose: 5 mg Documented by: Pantoprazole Sodium (Pantoprazole 40 Mg Tab) 40 mg PO DAILY [facility]; Protocol Stop: 06/23/20 08:59 Last Admin: 05/25/20 08:05 Dose: 40 mg Documented by: Polyethylene Glycol (Polyethylene (Miralax) 17 Gm Pack) 17 gm PO DAILY PRN PRN Reason: Constipation Stop: 06/22/20 17:37 Sodium Phosphate (Sodium Phosphate 3 Mmol/1 Ml Infusion) 6 mmol IV NOW STA Stop: 05/25/20 08:45 Tamsulosin HCl (Tamsulosin Hcl 0.4 Mg Cap) 0.4 mg PO HS [facility] Stop: 06/22/20 20:59 Last Admin: 05/24/20 21:11 Dose: 0.4 mg Documented by: (1) Acute pulmonary embolism Acute cor pulmonale presence: unspecified Pulmonary embolism type: unspecified Qualified Code(s): I26.99 - Other pulmonary embolism without acute cor pulmonale (2) CKD (chronic kidney disease) stage 3, GFR 30-59 ml/min Chronic kidney disease stage 3 subtype: unspecified whether 3a or 3b Qualified Code(s): N18.30 - Chronic kidney disease, stage 3 unspecified
[2020-05-25 07:40] LABS: Albumin Level 2.9 gm/dl (3.4-5.0); BUN Creatinine Ratio 16.2 (10-20); Calcium 8.6 mg/dl (8.5-10.1); Creatinine Clr Calc Pharmacy 39.9 ml/min; Est GFR (Non-African American) 36.2; Magnesium 2.2 mg/dl (1.8-2.4); Potassium 4.1 mmol/L (3.5-5.1)
[2020-05-25 07:56] LABS: Partial Thromboplastin Ratio 2.3
[2020-05-25 07:57] LABS: Albumin Globulin Ratio 0.8 (0.9-2); Bilirubin,Total 0.6 mg/dl (0.2-1); Globulin 3.7 gm/dl (2.5-4.0); Phosphorus 2.2 mg/dl (2.5-4.9); Total Protein 6.6 gm/dl (6.4-8.2)
[2020-05-25] MEDS: INSULIN ASPART 100 UNITS/ML 3 ML PEN SC SCH ×4 (08:02→20:38)
[2020-05-25] MEDS: FUROSEMIDE 20 MG TAB PO SCH (08:05)
[2020-05-25] MEDS: allopurinoL 100 MG TAB PO SCH ×2 (08:05→20:30)
[2020-05-25] MEDS: PANTOprazole 40 MG TAB PO SCH (08:05)
[2020-05-25] MEDS: METOPROLOL TARTRATE 25 MG TAB PO SCH (08:06)
[2020-05-25] MEDS: ASPIRIN 81 MG ECTAB PO SCH (08:06)
[2020-05-25] MEDS: LIDOCAINE 5% 1 PATCH TD SCH (08:07)
[2020-05-25 08:08] LABS: Partial Thromboplastin Time 61.8 Seconds (21.0-31.0)
[2020-05-25] MEDS: HYDROmorphone INJ 0.5 MG/0.5 ML SYR IV PRN (08:18)
[2020-05-25] MEDS ORDERED: SODIUM PHOSPHATE 3 MMOL/1 ML INFUSION IV STA (08:44)
[2020-05-25] MEDS ORDERED: SODIUM PHOSPHATE 6 MMOL in 0.9 % SODIUM CHLORIDE 100 ML IV ONE (09:15)
[2020-05-25] MEDS ORDERED: SODIUM CHLORIDE 0.65% NA SOLN 45 ML (OCEAN) NAE PRN (09:26)
[2020-05-25] MEDS ORDERED: METOPROLOL TARTRATE 1 MG/ML VIAL IV STA ×3 (09:26→10:32)
[2020-05-25] MEDS ORDERED: METOPROLOL TARTRATE 25 MG TAB PO STA (10:45)
[2020-05-25] MEDS: KETOROLAC TROMETHAMINE 15 MG/ML VIAL IV PRN (10:50)
--- NOTE | 2020-05-25 12:52 | XRay Report ---
SINGLE VIEW CHEST CLINICAL HISTORY: Atypical chest pain. Known pulmonary emboli. FINDINGS: An AP, portable, upright chest radiograph is compared to chest x-ray and chest CT dated 05/07. The cardiomediastinal silhouette is unremarkable. There is a small right pleural effusion wit h associated right basilar atelectasis. Atelectasis is also seen at the left lung base. No pneumothor ax is seen. The skeletal structures are osteopenic. The bony thorax is grossly intact. IMPRESSION: A small right pleural effusion has modestly increased as compared to 05/23/2020. ACT 112: Negative or not required by law. Electronically signed by: Alexis Sanchez M.D. 05/25/2020 12:50 PM
--- NOTE | 2020-05-25 13:48 | Cardiology Consultation ---
Date of Consultation May 25, 2020 Assessment & Plan (1) Atrial fibrillation with rapid ventricular response: Patient is a 75-year-old male admitted with acute pulmonary embolus with associated severe pleuritic pain but hemodynamically stable who lapsed this morning into atrial fibrillation with rapid response. Echocardiogram once again reviewed from day prior which demonstrates no evidence of significant right ventricular strain or pulmonary hypertension. Arrhythmia however not surprising in current setting of hypoxia, pain, hypertension superimposed on strains of pulmonary embolus. Patient previously on significant AV nash blocking drugs for hypertension including diltiazem 360 mg/day and metoprolol 25 mg twice per day. Already on anticoagulation with IV heparin and given unprovoked pulmonary embolus and atrial fibrillation will warrant long-term anticoagulation, Chads vasc 2 score 4 or greater Recommendations: Patient already treated with IV metoprolol and slowing of heart rate. We will give an additional 25 mg p.o. metoprolol and reassess likely increasing usual dose to 50 mg twice per day. There remains significant likelihood he will spontaneously convert back to sinus rhythm has heart rate, blood pressure and pain is controlled. We will proceed cautiously with additional rate control therapies given baseline degree of AV nash blocking therapies already present Given asymptomatic state will avoid antiarrhythmic therapies for time being (2) Acute pulmonary embolism: (3) Factor V Leiden mutation: (4) Hypertension: (5) CKD (chronic kidney disease) stage 3, GFR 30-59 ml/min: History of Present Illness Reason for Consultation: Atrial fibrillation with rapid response Requesting Physician: Dr. Conklin Attending Physician: Victor Hugo Conklin MD History of Present Illness Patient is a 75-year-old male whose underlying issues include 1. Longstanding hypertension 2. Diabetes mellitus with stage III chronic kidney disease 3. Dyslipidemia with elevated triglycerides 4. Heterozygous factor V Leiden mutation diagnosed due to family history of positive study and daughter 5. Gouty arthropathy 6. Obstructive uropathy 7. Borderline obstructive sleep apnea Patient presents this admission having developed severe right-sided chest and pleuritic pain and discomfort in presenting for evaluation on 05/23/2020 with CTA of the chest demonstrating bilateral pulmonary emboli right greater than left. He continues to have significant pleuritic pain and and moderate oxygen demands. This morning he has lapsed into atrial fibrillation with elevated ventricular response. He is referred now for further evaluation. Patient denies prior history of cardiac disease, rheumatic fever scarlet fever or angina, congestive heart failure, tachypalpitations, syncope or near syncope. Notes rare palpitations in the past. Notes no prior history of thromboembolic disease. Notes no fevers chills or unexplained infections. Notes no bleeding difficulties. Appetite and weight are generally stable. 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 No appetite or sleep disruption. Does note prior evaluation for sleep apnea initially positive then negative on repeat study He does continue to complain of significant pain and has difficulty moving about in bed He is currently unaware of his atrial arrhythmia despite elevated heart rates, no hemodynamic compromise blood pressures have been hypertensive He has received IV metoprolol for a total of 10 mg with slowing of heart rate Allergies Allergy/AdvReac Type Severity Reaction Status Date / Time meperidine Allergy Mild Verified 05/23/20 14:57 Home Medications Medication Instructions Recorded Confirmed Type allopurinol 100 mg PO BID 05/23/20 05/23/20 History aspirin 325 mg PO QAM 05/23/20 05/23/20 History diltiazem HCl 360 mg PO DAILY 05/23/20 05/23/20 History furosemide 20 mg PO DAILY 05/23/20 05/23/20 History glipizide 10 mg PO BID 05/23/20 05/23/20 History lisinopril 5 mg PO DAILY 05/23/20 05/23/20 History metoprolol tartrate 25 mg PO BID 05/23/20 05/23/20 History omeprazole 20 mg PO DAILY 05/23/20 05/23/20 History tamsulosin 0.4 mg PO HS 05/23/20 05/23/20 History Patient History Medical History BPH (benign prostatic hyperplasia) CKD (chronic kidney disease) stage 3, GFR 30-59 ml/min 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 Leiden mutation GERD (gastroesophageal reflux disease) Hyperlipidemia Hypertension Family History Father Pancreatic cancer Heart disease Mother Colorectal cancer Daughter Factor V Leiden mutation Social History Smoking Status: Former smoker Hx Alcohol Use: Yes Alcohol type: hard liquor Hx Substance Use: No Preferred Language: Wolof Communication Ability: Effective Guillotine Trimmer Required: No Beliefs That Will Affect Care: None Current Living Situation: Family Other Information That Helps Us Care for You: No Feels Safe at Home: Yes Safety Concerns: Feels Safe At This Time Assistive Devices: Glasses Review of Systems Review of Systems: All systems reviewed & are unremarkable except as noted in HPI & below Physical Exam Constitutional: WD/WN, vitals as above Eyes: PERRL, conjunctivae normal, anicteric sclerae ENMT: external ear and nose normal, oropharynx normal Neck: trachea midline, no thyromegaly Respiratory: Splinting with inspiratory effort and scattered crackles audible at the right base Cardiovascular: Rate/Rhythm: + tachycardic and + irregularly irregular Heart Sounds: normal S1 and normal S2; no gallop and no murmur Palpation: normal PMI Vessels: normal carotid upstroke and radial pulses present; no JVD and no carotid bruit Extremities: no calf tenderness and no edema Gastrointestinal (Abdomen): normal bowel sounds, soft, nontender, no hepa tosplenomegaly Musculoskeletal: no cyanosis or clubbing, extremities motor strength 5/5 Skin: no rashes, warm and dry Neurologic: PERRL, EOMI, accommodation nl, no face palsy, no dysarthria Psychiatric: A+Ox3, euthymic affect Results & Data ([facility]) Vital Signs (Past 12 Hours) Vital Signs Temp Pulse Pulse Pulse Resp BP BP 05/25/20 12:04 36.6 C 106 H 18 157/86 H 05/25/20 11:17 99 H 149/83 H 05/25/20 10:36 115 H 137/71 05/25/20 10:21 150 H 149/99 H 05/25/20 10:00 148 H 166/102 H 05/25/20 09:37 138 H 167/82 H 05/25/20 09:25 138 H 167/82 H 05/25/20 08:37 36.7 C 91 H 18 161/80 H 05/25/20 07:36 88 05/25/20 03:40 36.8 C 86 21 176/74 H Pulse Ox 05/25/20 12:04 95 05/25/20 11:17 05/25/20 10:36 05/25/20 10:21 05/25/20 10:00 05/25/20 09:37 04/19/21 09:25 94 05/25/20 08:37 91 05/25/20 07:36 05/25/20 03:40 94 Laboratory Results Laboratory Results - last 24 hr 05/24/20 05/24/20 05/24/20 06:58 16:18 20:44 WBC RBC Hgb Hct MCV MCH MCHC RDW Std Deviation RDW Coeff of Sesar Plt Count MPV APTT PTT Ratio Sodium Potassium Chloride Carbon Dioxide Anion Gap BUN Creatinine Est Cr Clr Drug Dosing Est GFR ( Amer) Est GFR (Non-Af Amer) BUN/Creatinine Ratio Glucose POC Glucose 165 H 225 H Estimat Average Glucose 171 Hemoglobin A1c 7.6 H Calcium Phosphorus Magnesium Total Bilirubin AST ALT Alkaline Phosphatase Total Protein Albumin Globulin Albumin/Globulin Ratio 05/25/20 05/25/20 05/25/20 06:37 06:37 07:17 WBC 11.29 H RBC 4.70 Hgb 13.2 L Hct 37.5 L MCV 79.8 L MCH 28.1 MCHC 35.2 RDW Std Deviation 38.9 RDW Coeff of Sesar 13.6 Plt Count 148 MPV 9.7 APTT 61.8 H* PTT Ratio 2.3 Sodium 133 L Potassium 4.1 Chloride 101 Carbon Dioxide 28 Anion Gap 4.0 BUN 29 H Creatinine 1.78 H Est Cr Clr Drug Dosing 39.9 Est GFR ( Amer) 42.0 Est GFR (Non-Af Amer) 36.2 BUN/Creatinine Ratio 16.2 Glucose 167 H POC Glucose Estimat Average Glucose Hemoglobin A1c Calcium 8.6 Phosphorus 2.2 L D Magnesium 2.2 Total Bilirubin 0.6 AST 9 L ALT 15 Alkaline Phosphatase 65 Total Protein 6.6 Albumin 2.9 L Globulin 3.7 Albumin/Globulin Ratio 0.8 L 05/25/20 05/25/20 07:18 11:35 WBC RBC Hgb Hct MCV MCH MCHC RDW Std Deviation RDW Coeff of Sesar Plt Count MPV APTT PTT Ratio Sodium Potassium Chloride Carbon Dioxide Anion Gap BUN Creatinine Est Cr Clr Drug Dosing Est GFR ( Amer) Est GFR (Non-Af Amer) BUN/Creatinine Ratio Glucose POC Glucose 182 H 212 H Estimat Average Glucose Hemoglobin A1c Calcium Phosphorus Magnesium Total Bilirubin AST ALT Alkaline Phosphatase Total Protein Albumin Globulin Albumin/Globulin Ratio (1) Acute pulmonary embolism Acute cor pulmonale presence: unspecified Pulmonary embolism type: unspecified Qualified Code(s): I26.99 - Other pulmonary embolism without acute cor pulmonale (2) CKD (chronic kidney disease) stage 3, GFR 30-59 ml/min Chronic kidney disease stage 3 subtype: unspecified whether 3a or 3b Qualified Code(s): N18.30 - Chronic kidney disease, stage 3 unspecified
[2020-05-25] MEDS: oxyCODONE HCL IR 5 MG TAB (IMMEDIATE RELEASE) PO PRN (14:42)
--- NOTE | 2020-05-25 15:04 | Communication Note ---
Date of Service: May 25, 2020 Patient is telemetry reviewed with patient having spontaneous conversion from atrial fibrillation to sinus rhythm approximately 11:30 AM. No pauses or bra dycardia. Heart rate in the 80s, patient sitting out of bed in chair and more comfortable We will increase metoprolol tartrate to 50 twice daily, maintain telemetry
--- NOTE | 2020-05-25 17:36 | Electrocardiogram Report ---
Test Reason : Blood Pressure : / mmHG Vent. Rate : 138 BPM Atrial Rate : 131 BPM P-R Int : 000 ms QRS Dur : 094 ms QT Int : 296 ms P-R-T Axes : 000 055 064 degrees QTc Int : 448 ms Atrial fibrillation with rapid ventricular response Low voltage QRS Abnormal ECG When compared with ECG of 23-MAY-2020 14:16, Atrial fibrillation has replaced Sinus rhythm Confirmed by Amaury Martínez ([id number]) on 05/25/2020 5:35:49 PM Referred By: REFERRED SELF Confirmed By:Jonh Martínez
[2020-05-25] MEDS: TAMSULOSIN HCL 0.4 MG CAP PO SCH (20:29)
[2020-05-25] MEDS: METOPROLOL TARTRATE 50 MG TAB PO SCH (20:29)
[2020-05-26 04:58] LABS: Hematocrit (blood only) 35.9 % (42-52); Hemoglobin 12.5 g/dL (14.0-18.0); Mean Corpuscular Hemoglobin 27.4 pg (25-34); Mean Corpuscular Hgb Conc 34.8 g/dL (32-36); Mean Corpuscular Volume 78.7 fL (80-100); Mean Platelet Volume 9.6 fL (7.4-10.4); Platelet Count 158 K/uL (130-400); RDW Coefficient of Variation 13.6 % (11.5-14.5); RDW Standard Deviation 38.6 fL (36.4-46.3); Red Blood Count 4.56 M/uL (4.7-6.1); White Blood Count 8.15 K/uL (4.8-10.8)
[2020-05-26 05:15] LABS: BUN Creatinine Ratio 17.2 (10-20); Calcium 8.6 mg/dl (8.5-10.1); Creatinine Clr Calc Pharmacy 39.2 ml/min; Est GFR (African American) 41.2; Est GFR (Non-African American) 35.5; Magnesium 2.1 mg/dl (1.8-2.4); Potassium 4.2 mmol/L (3.5-5.1)
[2020-05-26 05:16] LABS: Phosphorus 2.2 mg/dl (2.5-4.9)
[2020-05-26 05:32] LABS: Partial Thromboplastin Ratio 1.9
[2020-05-26] MEDS: INSULIN ASPART 100 UNITS/ML 3 ML PEN SC SCH ×4 (07:54→20:37)
[2020-05-26] MEDS: allopurinoL 100 MG TAB PO SCH ×2 (08:01→20:37)
[2020-05-26] MEDS: ASPIRIN 81 MG ECTAB PO SCH (08:02)
[2020-05-26] MEDS: FUROSEMIDE 20 MG TAB PO SCH (08:02)
[2020-05-26] MEDS: METOPROLOL TARTRATE 50 MG TAB PO SCH ×2 (08:02→20:37)
[2020-05-26] MEDS: PANTOprazole 40 MG TAB PO SCH (08:02)
[2020-05-26] MEDS: LIDOCAINE 5% 1 PATCH TD SCH (08:03)
--- NOTE | 2020-05-26 09:02 | Hospitalist Progress Note ---
Date of Service May 26, 2020 Assessment & Plan (1) Acute respiratory failure with hypoxia: (2) Acute pulmonary embolism: likely secondary to factor V Leiden mutation (3) Factor V Leiden mutation: Patient found hypoxic, currently on 4 L of oxygen mask in the ED CT PE - cardiomegaly with bilateral pulmonary emboli, most pronounced in the right lower lobe. No right heart strain or pulmonary infarct identified. Trace right pleural effusion. Right greater than left bibasilar predominant opacities suggestive of atelectasis. A nonspecific pneumonitis could appear similarly History of factor V Leiden mutation, however no prior history of thrombosis Patient is on high-dose aspirin at home In the ED patient was started on IV heparin, will continue Pain control with IV morphine and Dilaudid in the ED, will also add lidocaine patch, and p.o. oxycodone as needed Supplemental oxygen as needed Echo ordered - left ventricle is normal in size. There is moderate concentric LVH. LV wall motion is normal. LV is hyperdynamic. EF 65 to 70%. RV is normal in size and function. Doppler findings do not suggest pulmonary hypertension. Normal inferior vena cava diameter and respiratory variation suggesting normal central venous pressure. There is no significant valvular disease. 05/26 Patient clinically much improved, currently breathing comfortably on room air. Discussed with Dr. Edge, from hematology, given factor V Leiden mutation, underlying possible cancer/renal cell carcinoma, now with PE. Will start patient on Coumadin (alternatives not financially feasible for the patient). Patient is familiar with Coumadin as his is also taking the medication. Check daily INR. Continue to closely monitor on telemetry. Afib w/ RVR - new onset - now resolved - pt in NSR - metoprolol increased to 50 bid and cardiology following (4) Renal mass: New incidental finding on CT when eval for PE 1.7 cm lesion of the superior pole right kidney suspicious for renal cell carcinoma. - concern for renal cell carcinoma - will need further eval - sent message to PCP, to refer patient to urology (5) Diabetes mellitus type 2 in nonobese: Last A1c 7.5% in 01/28/20 will check AM A1c - hold home glipizide, SSI while inpt - monitor blood glucose while inpt (6) CKD (chronic kidney disease) stage 3, GFR 30-59 ml/min: MARY on CKD stage 3 - baseline Cr 1.5-1.6 - Cr 1.83 on admission - then 1.6-1.8 - s/p contrast to eval for PE - try to avoid other nephrotoxic agents - held furosemide initially, will resume - monitor BMP (7) Hypertension: - cont. home diltiazem, metoprolol - monitor BP while inpt (8) GERD (gastroesophageal reflux disease): - cont. home omeprazole or its equivalent while inpt (9) BPH (benign prostatic hyperplasia): - cont. tamsulosin Code: Full Dispo: pt is from home, independent Admission and Anticipated Discharge Date Admission Date: May 23, 2020 Subjective Patient seen in follow-up of hypoxia, acute PE, Afib w/ RVR Currently sitting up in bed in no acute distress Chest pain much improved Pt currently breathing comfortably on RA Pt in NSR Review of Systems Review of Systems: All systems reviewed & are unremarkable except as noted in HPI & below Constitutional: no fever and no chills Respiratory: no cough and no dyspnea Cardiovascular: no chest pain and no palpitations Gastrointestinal: no abdominal pain, no nausea and no vomiting Physical Exam Constitutional: WD/WN, vitals as above no acute distress Eyes: PERRL, conjunctivae normal, anicteric sclerae ENMT: external ear and nose normal, oropharynx normal Neck: trachea midline, no thyromegaly normal visual inspection Respiratory: no respiratory distress Auscultation: lungs clear to auscultation bilaterally; no rales, no rhonchi and no wheezes Cardiovascular: RRR, no murmur, no edema Chest (Breasts): Chest: normal inspection of chest Gastrointestinal (Abdomen): normal bowel sounds, soft, nontender, no hepatosplenomegaly Percussion/Palpation: abdomen soft; no guarding and abdomen not rigid Musculoskeletal: no cyanosis or clubbing, extremities motor strength 5/5 Head/Neck/Chest: normocephalic and head atraumatic Skin: no rashes, warm and dry Neurologic: PERRL, EOMI, accommodation nl, no face palsy, no dysarthria Psychiatric: A+Ox3, euthymic affect Genitourinary: no CVA tenderness Lymphatic: no lymphedema Results & Data Results & Data ([facility]) Vital Signs (Past 12 Hours) Vital Signs Temp Pulse Resp BP Pulse Ox 05/26/20 08:12 36.8 C 88 16 160/74 H 96 05/26/20 04:01 36.9 C 78 18 165/61 H 95 05/26/20 00:04 37.1 C 83 18 155/71 H 93 Laboratory Results 05/26/20 05/26/20 05/26/20 Range/Units 07:38 04:40 04:40 WBC (4.8-10.8) K/uL RBC (4.7-6.1) M/uL Hgb (14.0-18.0) g/dL Hct (42-52) % MCV (80-100) fL MCH (25-34) pg MCHC (32-36) g/dL RDW Std Deviation (36.4-46.3) fL RDW Coeff of Sesar (11.5-14.5) % Plt Count (130-400) K/uL MPV (7.4-10.4) fL APTT 49.0 H* (21.0-31.0) Seconds PTT Ratio 1.9 Sodium 137 (136-145) mmol/L Potassium 4.2 (3.5-5.1) mmol/L Chloride 105 (98-107) mmol/L Carbon Dioxide 26 (21-32) mmol/L Anion Gap 6.0 (3-11) BUN 31 H (7-18) mg/dl Creatinine 1.81 H (0.6-1.4) mg/dl Est Cr Clr Drug Dosing 39.2 ml/min Est GFR ( Amer) 41.2 Est GFR (Non-Af Amer) 35.5 BUN/Creatinine Ratio 17.2 (10-20) Glucose 176 H (70-99) mg/dl POC Glucose 183 H (70-99) mg/dl Calcium 8.6 (8.5-10.1) mg/dl Phosphorus 2.2 L (2.5-4.9) mg/dl Magnesium 2.1 (1.8-2.4) mg/dl 05/26/20 05/25/20 05/25/20 Range/Units 04:40 20:37 16:39 WBC 8.15 (4.8-10.8) K/uL RBC 4.56 L (4.7-6.1) M/uL Hgb 12.5 L (14.0-18.0) g/dL Hct 35.9 L (42-52) % MCV 78.7 L (80-100) fL MCH 27.4 (25-34) pg MCHC 34.8 (32-36) g/dL RDW Std Deviation 38.6 (36.4-46.3) fL RDW Coeff of Sesar 13.6 (11.5-14.5) % Plt Count 158 (130-400) K/uL MPV 9.6 (7.4-10.4) fL APTT (21.0-31.0) Seconds PTT Ratio Sodium (136-145) mmol/L Potassium (3.5-5.1) mmol/L Chloride (98-107) mmol/L Carbon Dioxide (21-32) mmol/L Anion Gap (3-11) BUN (7-18) mg/dl Creatinine (0.6-1.4) mg/dl Est Cr Clr Drug Dosing ml/min Est GFR ( Amer) Est GFR (Non-Af Amer) BUN/Creatinine Ratio (10-20) Glucose (70-99) mg/dl POC Glucose 150 H 194 H (70-99) mg/dl Calcium (8.5-10.1) mg/dl Phosphorus (2.5-4.9) mg/dl Magnesium (1.8-2.4) mg/dl 05/25/20 Range/Units 11:35 WBC (4.8-10.8) K/uL RBC (4.7-6.1) M/uL Hgb (14.0-18.0) g/dL Hct (42-52) % MCV (80-100) fL MCH (25-34) pg MCHC (32-36) g/dL RDW Std Deviation (36.4-46.3) fL RDW Coeff of Sesar (11.5-14.5) % Plt Count (130-400) K/uL MPV (7.4-10.4) fL APTT (21.0-31.0) Seconds PTT Ratio Sodium (136-145) mmol/L Potassium (3.5-5.1) mmol/L Chloride (98-107) mmol/L Carbon Dioxide (21-32) mmol/L Anion Gap (3-11) BUN (7-18) mg/dl Creatinine (0.6-1.4) mg/dl Est Cr Clr Drug Dosing ml/min Est GFR ( Amer) Est GFR (Non-Af Amer) BUN/Creatinine Ratio (10-20) Glucose (70-99) mg/dl POC Glucose 212 H (70-99) mg/dl Calcium (8.5-10.1) mg/dl Phosphorus (2.5-4.9) mg/dl Magnesium (1.8-2.4) mg/dl Medications Administered Current Inpatient Medications Acetaminophen (Acetaminophen 325 Mg Tab) 650 mg PO Q4H PRN PRN Reason: Pain (1,2,3 or 4) or Fever Stop: 06/22/20 17:37 Last Admin: 05/24/20 14:39 Dose: 650 mg Documented by: Allopurinol (Allopurinol 100 Mg Tab) 100 mg PO BID [facility] Stop: 06/22/20 20:59 Last Admin: 05/26/20 08:01 Dose: 100 mg Documented by: Aspirin (Aspirin 81 Mg Ectab) 162 mg PO QAM [facility] Stop: 06/23/20 08:59 Last Admin: 05/26/20 08:02 Dose: 162 mg Documented by: Dextrose (Dextrose 50% 50 Ml Syringe) 25 - 50 ml IV UD PRN; Protocol PRN Reason: Hypoglycemia Protocol Stop: 06/22/20 18:04 Diltiazem HCl (Diltiazem Hcl 180 Mg Er Cap) 360 mg PO DAILY [facility] Stop: 06/23/20 08:59 Last Admin: 05/26/20 08:03 Dose: 360 mg Documented by: Furosemide (Furosemide 20 Mg Tab) 20 mg PO QAM [facility] Stop: 06/24/20 08:59 Last Admin: 05/26/20 08:02 Dose: 20 mg Documented by: Glucagon (Glucagon For Inj 1 Mg Vial) 1 mg SQ UD PRN; Protocol PRN Reason: Hypoglycemia Protocol Stop: 06/22/20 18:04 Glucose (Glucose 10 Tabs/Tube) 4 - 8 tabs PO UD PRN; Protocol PRN Reason: Hypoglycemia Protocol Stop: 06/22/20 18:04 Glucose (Glucose 40% Gel 15 Gm Tube) 15 - 30 gm PO UD PRN; Protocol PRN Reason: Hypoglycemia Protocol Stop: 06/22/20 18:04 Hydromorphone HCl (Hydromorphone Inj 0.5 Mg/0.5 Ml Syr) 0.5 mg IV Q4H PRN PRN Reason: Pain (8, 9, or 10) Stop: 06/06/20 18:33 Last Admin: 05/25/20 08:18 Dose: 0.5 mg Documented by: Heparin Sodium/Dextrose (Heparin Sodium/Dextrose) 25,000 units in 500 mls @ 28 mls/hr IV .[id number] [facility]; Protocol Stop: 06/22/20 15:59 Last Titration: 05/26/20 07:02 Dose: 1,400 units/hr, 28 mls/hr Documented by: Insulin Aspart (Insulin Aspart 100 Units/Ml 3 Ml Pen) 0 units SC ACHS [facility] Stop: 06/22/20 20:59 Last Admin: 05/26/20 07:54 Dose: 6 units Documented by: Ketorolac Tromethamine (Ketorolac Tromethamine 15 Mg/Ml Vial) 15 mg IV Q6H PRN PRN Reason: Pain Stop: 05/29/20 07:34 Last Admin: 05/25/20 10:50 Dose: 15 mg Documented by: Lidocaine (Lidocaine 5% 1 Patch) 1 patch TD QAM [facility] Stop: 06/22/20 18:59 Last Admin: 05/26/20 08:03 Dose: 1 patch Documented by: Menthol (Cough Drop (Sugar Free) Kael 24 Kael/1 Box) 1 kael BUCCAL Q1H PRN PRN Reason: Sore Throat Stop: 06/23/20 21:50 Metoprolol Tartrate (Metoprolol Tartrate 50 Mg Tab) 50 mg PO BID [facility] Stop: 06/24/20 20:59 Last Admin: 05/26/20 08:02 Dose: 50 mg Documented by: Miscellaneous (Remove Lidoderm Patch) 1 ea N/A DAILY@2100 [facility] Stop: 06/23/20 00:00 Last Admin: 05/25/20 20:32 Dose: 1 ea Documented by: Miscellaneous (Carbohydrates For Hypoglycemia ) 15 - 30 gm PO UD PRN PRN Reason: Hypoglycemia Protocol Stop: 06/22/20 18:04 Oxycodone HCl (Oxycodone Hcl Ir 5 Mg Tab (Immediate Release)) 5 mg PO Q6H PRN PRN Reason: Pain (5, 6, or 7) Stop: 06/06/20 17:43 Last Admin: 05/25/20 14:42 Dose: 5 mg Documented by: Pantoprazole Sodium (Pantoprazole 40 Mg Tab) 40 mg PO DAILY [facility]; Protocol Stop: 06/23/20 08:59 Last Admin: 05/26/20 08:02 Dose: 40 mg Documented by: Polyethylene Glycol (Polyethylene (Miralax) 17 Gm Pack) 17 gm PO DAILY PRN PRN Reason: Constipation Stop: 06/22/20 17:37 Potassium Phosphate (Pot Phosphate Monobasic W/ Sod Tab) 1 tab PO QID [facility] Stop: 06/25/20 08:59 Sodium Chloride (Sodium Chloride 0.65% Na Soln 45 Ml ([place])) 1 sprays RAQUEL Q6 PRN PRN Reason: Congestion Stop: 06/24/20 09:25 Last Admin: 05/25/20 09:38 Dose: 1 sprays Documented by: Tamsulosin HCl (Tamsulosin Hcl 0.4 Mg Cap) 0.4 mg PO HS TRES Stop: 06/22/20 20:59 Last Admin: 05/25/20 20:29 Dose: 0.4 mg Documented by: (1) Acute pulmonary embolism Acute cor pulmonale presence: unspecified Pulmonary embolism type: unspecified Qualified Code(s): I26.99 - Other pulmonary embolism without acute cor pulmonale (2) CKD (chronic kidney disease) stage 3, GFR 30-59 ml/min Chronic kidney disease stage 3 subtype: unspecified whether 3a or 3b Qualified Code(s): N18.30 - Chronic kidney disease, stage 3 unspecified
[2020-05-26] MEDS: POT PHOSPHATE MONOBASIC W/ SOD TAB PO SCH ×4 (09:55→20:37)
[2020-05-26] MEDS: HEPARIN SODIUM/DEXTROSE 25,000 UNITS/500 ML BAG IV SCH (11:37)
--- NOTE | 2020-05-26 14:49 | Cardiology Progress Note ---
Date of Service May 26, 2020 Assessment & Plan (1) Atrial fibrillation with rapid ventricular response: Patient is a 75-year-old male admitted with acute pulmonary embolus with associated severe pleuritic pain but hemodynamically stable who lapsed this morning into atrial fibrillation with rapid response. Echocardiogram once again reviewed from day prior which demonstrates no evidence of significant right ventricular strain or pulmonary hypertension. Arrhythmia however not surprising in current setting of hypoxia, pain, hypertension superimposed on strains of pulmonary embolus. Patient spontaneously converted to sinus rhythm after IV metoprolol and increase in usual metoprolol tartrate dosing. Currently doing well without recurrence of arrhythmias. Recommendations: Continue metoprolol tartrate 50 twice daily. Patient warranting long-term anticoagulation is on the basis of pulmonary embolus. Patient wishes to investigate alternative to warfarin therapies Single brief episode of atrial fibrillation in the setting of acute throes of pulmonary embolus would recommend oral anticoagulant for 3 to 6-month. Suspect patient will require long-term therapy on the basis of pulmonary embolus and hypercoagulable state (2) Acute pulmonary embolism: (3) Factor V Leiden mutation: (4) Hypertension: (5) CKD (chronic kidney disease) stage 3, GFR 30-59 ml/min: Admission and Anticipated Discharge Date Admission Date: May 23, 2020 Subjective Patient was seen and examined, chart, medications, telemetry reviewed. More comfortable today less pleuritic pain. Has remained in sinus rhythm overnight. No fevers or chills no cough or hemoptysis. Remains anticoagulated with heparin. Physical Exam Constitutional: WD/WN, vitals as above Eyes: PERRL, conjunctivae normal, anicteric sclerae ENMT: external ear and nose normal, oropharynx normal Neck: trachea midline, no thyromegaly Respiratory: Minimal respiratory splinting with better aeration to the right base Cardiovascular: Rate/Rhythm: + tachycardic and + irregularly irregular Heart Sounds: normal S1 and normal S2; no gallop and no murmur Palpation: normal PMI Vessels: normal carotid upstroke and radial pulses present; no JVD and no carotid bruit Extremities: no calf tenderness and no edema Gastrointestinal (Abdomen): normal bowel sounds, soft, nontender, no hepatosplenomegaly Musculoskeletal: no cyanosis or clubbing, extremities motor strength 5/5 Skin: no rashes, warm and dry Neurologic: PERRL, EOMI, accommodation nl, no face palsy, no dysarthria Psychiatric: A+Ox3, euthymic affect Results & Data ([facility]) Vital Signs (Past 12 Hours) Vital Signs Temp Pulse Resp BP Pulse Ox 05/26/20 12:22 36.7 C 80 18 151/73 H 96 05/26/20 08:12 36.8 C 88 16 160/74 H 96 05/26/20 04:01 36.9 C 78 18 165/61 H 95 (1) Acute pulmonary embolism Acute cor pulmonale presence: unspecified Pulmonary embolism type: unspecified Qualified Code(s): I26.99 - Other pulmonary embolism without acute cor pulmonale (2) CKD (chronic kidney disease) stage 3, GFR 30-59 ml/min Chronic kidney disease stage 3 subtype: unspecified whether 3a or 3b Qualified Code(s): N18.30 - Chronic kidney disease, stage 3 unspecified
--- NOTE | 2020-05-26 16:06 | Ultrasound Report ---
BILATERAL LOWER EXTREMITY VENOUS DOPPLER CLINICAL HISTORY: Pulmonary emboli. COMPARISON STUDY: No previous studies for comparison. TECHNIQUE: Sonography of the deep venous system of the bilateral lower extremities was performed. Co mpression and augmentation were evaluated. FINDINGS: The bilateral common femoral, superficial femoral and popliteal veins are patent. No above the knee thrombus is noted. There is deep venous thrombus within the right posterior tibial vein. No additional sites of deep venous thrombus are identified. IMPRESSION: Deep venous thrombus within the right posterior tibial vein. ACT 112: Negative or not required by law. Electronically signed by: Santino Davis M.D. 05/26/2020 4:05 PM
[2020-05-26] MEDS: WARFARIN SOD 5 MG TAB PO SCH (17:14)
[2020-05-26] MEDS: TAMSULOSIN HCL 0.4 MG CAP PO SCH (20:37)
[2020-05-27] MEDS: HEPARIN SODIUM/DEXTROSE 25,000 UNITS/500 ML BAG IV SCH ×2 (05:05→23:19)
[2020-05-27 07:13] LABS: Hematocrit (blood only) 40.4 % (42-52); Hemoglobin 14.2 g/dL (14.0-18.0); Mean Corpuscular Hgb Conc 35.1 g/dL (32-36); Mean Corpuscular Volume 79.7 fL (80-100); Mean Platelet Volume 9.7 fL (7.4-10.4); Platelet Count 210 K/uL (130-400); RDW Coefficient of Variation 13.7 % (11.5-14.5); RDW Standard Deviation 39.6 fL (36.4-46.3); Red Blood Count 5.07 M/uL (4.7-6.1); White Blood Count 8.21 K/uL (4.8-10.8)
[2020-05-27 07:49] LABS: BUN Creatinine Ratio 14.6 (10-20); Creatinine Clr Calc Pharmacy 38.2 ml/min; Est GFR (African American) 44.4; Est GFR (Non-African American) 38.3; Potassium 4.4 mmol/L (3.5-5.1)
[2020-05-27 07:56] LABS: Partial Thromboplastin Ratio 1.8; Prothrombin Time 9.9 Seconds (9.0-12.0)
[2020-05-27 08:00] LABS: Partial Thromboplastin Time 48.4 Seconds (21.0-31.0)
[2020-05-27] MEDS: allopurinoL 100 MG TAB PO SCH ×2 (08:45→20:36)
[2020-05-27] MEDS: METOPROLOL TARTRATE 50 MG TAB PO SCH ×2 (08:45→20:37)
[2020-05-27] MEDS: FUROSEMIDE 20 MG TAB PO SCH (08:45)
[2020-05-27] MEDS: ASPIRIN 81 MG ECTAB PO SCH (08:45)
[2020-05-27] MEDS: PANTOprazole 40 MG TAB PO SCH (08:45)
[2020-05-27] MEDS: LIDOCAINE 5% 1 PATCH TD SCH (08:46)
[2020-05-27] MEDS: POT PHOSPHATE MONOBASIC W/ SOD TAB PO SCH ×4 (08:46→20:34)
[2020-05-27] MEDS: INSULIN ASPART 100 UNITS/ML 3 ML PEN SC SCH ×4 (08:48→20:39)
--- NOTE | 2020-05-27 14:29 | Hospitalist Progress Note ---
Date of Service May 27, 2020 Assessment & Plan (1) Acute respiratory failure with hypoxia: resolved and now oxygenating well on room air. (2) Acute pulmonary embolism: likely secondary to factor V Leiden mutation. Cont warfarin with heparin bridge until therapeutic. Daily INR. Monitor for bleeding. (3) Atrial fibrillation with rapid ventricular response: Lone episode in the hospital which has now resolved, sinus rhythm for >24 hours on the monitor. Likely a result of acute PE, with long-term anticoagulation nor necessary at this time. Cardiology following. Continue increased metoprolol amount and monitor heart rate on telemetry. (4) Factor V Leiden mutation: case was peripherally discussed with [facility] Hematology and coumadin was selected as anticoagulant of choice with NOAC being cost prohibitive. Will require at least 3-6 months of anticoagulation for treatment of PE and may need this longer with FVL mutation. Would recommend outpatient consultation with Hematology regarding this within 3 months time. (5) Renal mass: New incidental finding on CT when eval for PE 1.7 cm lesion of the superior pole right kidney suspicious for renal cell carcinoma. - concern for renal cell carcinoma - will need further eval-Urology consulted to assist with next steps. (6) Diabetes mellitus type 2 in nonobese: A1C with moderate control, cont basal/bolus insulin while hospitalized. (7) CKD (chronic kidney disease) stage 3, GFR 30-59 ml/min: around his baseline, cont to avoid nephrotoxic substances and renally dose medications as appropriate. (8) Hypertension: Uncontrolled, cont LAsix 20mg PO qAM and diltiazem per home regimen, cont increased metoprolol, restart home lisinopril in am. (9) GERD (gastroesophageal reflux disease): cont PPI per home regimen (10) BPH (benign prostatic hyperplasia): - cont. tamsulosin per home regimen. (11) DVT prophylaxis: hep drip/warfarin as above. Full Code Dispo-to home in next 2-3 days when INR is 2 at least two days in a row. [facility] Admission and Anticipated Discharge Date Admission Date: May 23, 2020 Subjective 75 yo M presented with acute chest pain found to have acute PE, factor V Leiden mutation and concerning kidney lesion. Currently being anticoagulated on heparin drip with known CKD, bridge to warfarin therapy. We discussed some logistic surrounding coumadin and his takes it so there was less of a learning curve. A NOAC was considered but was cost-prohibitive. Patient denies any chest pain or difficulty breathing at this time and if feeling much better overall since admission. Review of Systems Review of Systems: All systems reviewed & are unremarkable except as noted in Subjective Physical Exam Physical Exam: CONSTITUTIONAL: WNWD, vitals as above, generally well- appearing EYES: normal conjunctivae, no scleral icterus ENT: external ear and nose normal, MMM RESPIRATORY: clear to auscultation bilaterally, no crackles, rales or wheezes, normal respiratory effort CARDIOVASCULAR: regular rate and rhythm, S1 and 2 heard without murmurs, gallops or rubs, no JVD, no peripheral edema GASTROINTESTINAL: soft, nontender, nondistended. MUSCULOSKELETAL: strength 5/5 throughout, head is normocephalic and atraumatic SKIN: warm and dry NEUROLOGIC: CN 2-12 grossly intact, normal cognition, normal speech, no tremor, no gross focal deficits. PSYCHIATRIC: alert cooperative and oriented to person, place and time. Results & Data Results & Data ([facility]) Vital Signs (Past 12 Hours) Vital Signs Temp Pulse Pulse Resp BP BP Pulse Ox 05/27/20 11:17 36.9 C 82 18 156/84 H 97 05/27/20 08:00 67 05/27/20 07:13 37.1 C 70 17 158/82 H 94 05/27/20 03:29 36.7 C 70 18 139/68 95 Laboratory Results Short CBC 05/27/20 Range/Units 06:45 WBC 8.21 (4.8-10.8) K/uL Hgb 14.2 (14.0-18.0) g/dL Hct 40.4 L (42-52) % Plt Count 210 (130-400) K/uL BMP 05/27/20 06:45 Sodium 135 L Potassium 4.4 Chloride 103 Carbon Dioxide 28 BUN 25 H Creatinine 1.70 H Glucose 175 H Calcium 10.0 D Medications Administered Current Inpatient Medications Acetaminophen (Acetaminophen 325 Mg Tab) 650 mg PO Q4H PRN PRN Reason: Pain (1,2,3 or 4) or Fever Stop: 06/22/20 17:37 Last Admin: 05/24/20 14:39 Dose: 650 mg Documented by: Allopurinol (Allopurinol 100 Mg Tab) 100 mg PO BID [facility] Stop: 06/22/20 20:59 Last Admin: 05/27/20 08:45 Dose: 100 mg Documented by: Aspirin (Aspirin 81 Mg Ectab) 162 mg PO QAM [facility] Stop: 06/23/20 08:59 Last Admin: 05/27/20 08:45 Dose: 162 mg Documented by: Dextrose (Dextrose 50% 50 Ml Syringe) 25 - 50 ml IV UD PRN; Protocol PRN Reason: Hypoglycemia Protocol Stop: 06/22/20 18:04 Diltiazem HCl (Diltiazem Hcl 180 Mg Er Cap) 360 mg PO DAILY [facility] Stop: 06/23/20 08:59 Last Admin: 05/27/20 08:45 Dose: 360 mg Documented by: Furosemide (Furosemide 20 Mg Tab) 20 mg PO QAM [facility] Stop: 06/24/20 08:59 Last Admin: 05/27/20 08:45 Dose: 20 mg Documented by: Glucagon (Glucagon For Inj 1 Mg Vial) 1 mg SQ UD PRN; Protocol PRN Reason: Hypoglycemia Protocol Stop: 06/22/20 18:04 Glucose (Glucose 10 Tabs/Tube) 4 - 8 tabs PO UD PRN; Protocol PRN Reason: Hypoglycemia Protocol Stop: 06/22/20 18:04 Glucose (Glucose 40% Gel 15 Gm Tube) 15 - 30 gm PO UD PRN; Protocol PRN Reason: Hypoglycemia Protocol Stop: 06/22/20 18:04 Hydromorphone HCl (Hydromorphone Inj 0.5 Mg/0.5 Ml Syr) 0.5 mg IV Q4H PRN PRN Reason: Pain (8, 9, or 10) Stop: 06/06/20 18:33 Last Admin: 05/25/20 08:18 Dose: 0.5 mg Documented by: Heparin Sodium/Dextrose (Heparin Sodium/Dextrose) 25,000 units in 500 mls @ 28 mls/hr IV .[id number] [facility]; Protocol Stop: 06/22/20 15:59 Last Titration: 05/27/20 08:02 Dose: 1,400 units/hr, 28 mls/hr Documented by: Insulin Aspart (Insulin Aspart 100 Units/Ml 3 Ml Pen) 0 units SC ACHS [facility] Stop: 06/22/20 20:59 Last Admin: 05/27/20 13:01 Dose: 4 units Documented by: Ketorolac Tromethamine (Ketorolac Tromethamine 15 Mg/Ml Vial) 15 mg IV Q6H PRN PRN Reason: Pain Stop: 05/29/20 07:34 Last Admin: 05/25/20 10:50 Dose: 15 mg Documented by: Lidocaine (Lidocaine 5% 1 Patch) 1 patch TD QAM [facility] Stop: 06/22/20 18:59 Last Admin: 05/27/20 08:46 Dose: 1 patch Documented by: Menthol (Cough Drop (Sugar Free) Kael 24 Kael/1 Box) 1 kael BUCCAL Q1H PRN PRN Reason: Sore Throat Stop: 06/23/20 21:50 Metoprolol Tartrate (Metoprolol Tartrate 50 Mg Tab) 50 mg PO BID [facility] Stop: 06/24/20 20:59 Last Admin: 05/27/20 08:45 Dose: 50 mg Documented by: Miscellaneous (Remove Lidoderm Patch) 1 ea N/A DAILY@2100 [facility] Stop: 06/23/20 00:00 Last Admin: 05/26/20 20:37 Dose: 1 ea Documented by: Miscellaneous (Carbohydrates For Hypoglycemia ) 15 - 30 gm PO UD PRN PRN Reason: Hypoglycemia Protocol Stop: 06/22/20 18:04 Oxycodone HCl (Oxycodone Hcl Ir 5 Mg Tab (Immediate Release)) 5 mg PO Q6H PRN PRN Reason: Pain (5, 6, or 7) Stop: 06/06/20 17:43 Last Admin: 05/25/20 14:42 Dose: 5 mg Documented by: Pantoprazole Sodium (Pantoprazole 40 Mg Tab) 40 mg PO DAILY [facility]; Protocol Stop: 06/23/20 08:59 Last Admin: 05/27/20 08:45 Dose: 40 mg Documented by: Polyethylene Glycol (Polyethylene (Miralax) 17 Gm Pack) 17 gm PO DAILY PRN PRN Reason: Constipation Stop: 06/22/20 17:37 Potassium Phosphate (Pot Phosphate Monobasic W/ Sod Tab) 1 tab PO QID [facility] Stop: 06/25/20 08:59 Last Admin: 05/27/20 13:01 Dose: 1 tab Documented by: Sodium Chloride (Sodium Chloride 0.65% Na Soln 45 Ml ([place])) 1 sprays RAQUEL Q6 PRN PRN Reason: Congestion Stop: 06/24/20 09:25 Last Admin: 05/25/20 09:38 Dose: 1 sprays Documented by: Tamsulosin HCl (Tamsulosin Hcl 0.4 Mg Cap) 0.4 mg PO HS TRES Stop: 06/22/20 20:59 Last Admin: 05/26/20 20:37 Dose: 0.4 mg Documented by: Warfarin Sodium (Warfarin Sod 5 Mg Tab) 5 mg PO DAILY@1600 TRES Stop: 06/25/20 15:59 Last Admin: 05/26/20 17:14 Dose: 5 mg Documented by: (1) Acute pulmonary embolism Acute cor pulmonale presence: unspecified Pulmonary embolism type: unspecified Qualified Code(s): I26.99 - Other pulmonary embolism without acute cor pulmonale (2) CKD (chronic kidney disease) stage 3, GFR 30-59 ml/min Chronic kidney disease stage 3 subtype: unspecified whether 3a or 3b Qualified Code(s): N18.30 - Chronic kidney disease, stage 3 unspecified
[2020-05-27] MEDS: WARFARIN SOD 5 MG TAB PO SCH (17:05)
[2020-05-27] MEDS: TAMSULOSIN HCL 0.4 MG CAP PO SCH (20:34)
[2020-05-28 05:52] LABS: Hematocrit (blood only) 37.3 % (42-52); Mean Corpuscular Hemoglobin 27.6 pg (25-34); Mean Corpuscular Hgb Conc 34.9 g/dL (32-36); Mean Corpuscular Volume 79.2 fL (80-100); Mean Platelet Volume 8.9 fL (7.4-10.4); Platelet Count 193 K/uL (130-400); RDW Coefficient of Variation 13.5 % (11.5-14.5); RDW Standard Deviation 38.9 fL (36.4-46.3); Red Blood Count 4.71 M/uL (4.7-6.1)
[2020-05-28 06:15] LABS: Partial Thromboplastin Ratio 1.9
[2020-05-28 06:20] LABS: Partial Thromboplastin Time 49.1 Seconds (21.0-31.0)
[2020-05-28 06:24] LABS: Creatinine Clr Calc Pharmacy 42.1 ml/min; Est GFR (African American) 50.1; Est GFR (Non-African American) 43.2; Potassium 4.2 mmol/L (3.5-5.1)
[2020-05-28] MEDS: lisinopril 5 MG TAB PO SCH (08:43)
[2020-05-28] MEDS: POT PHOSPHATE MONOBASIC W/ SOD TAB PO SCH ×3 (08:43→17:02)
[2020-05-28] MEDS: FUROSEMIDE 20 MG TAB PO SCH (08:43)
[2020-05-28] MEDS: METOPROLOL TARTRATE 50 MG TAB PO SCH ×2 (08:44→21:23)
[2020-05-28] MEDS: allopurinoL 100 MG TAB PO SCH ×2 (08:44→21:23)
[2020-05-28] MEDS: ASPIRIN 81 MG ECTAB PO SCH (08:44)
[2020-05-28] MEDS: LIDOCAINE 5% 1 PATCH TD SCH (08:45)
[2020-05-28] MEDS: INSULIN ASPART 100 UNITS/ML 3 ML PEN SC SCH ×4 (08:45→21:25)
[2020-05-28] MEDS: PANTOprazole 40 MG TAB PO SCH (08:45)
--- NOTE | 2020-05-28 14:23 | Urology Consultation ---
Date of Consultation May 28, 2020 Assessment & Plan (1) Renal mass: 75 year old male admitted for acute respiratory failure with hypoxia secondary to pulmonary embolism; incidental right renal mass. - Hospital course, imaging, and lab work reviewed as well as past medical history - Case and imaging reviewed with Dr. Adam - Chest and thoracic CT show 1.7 cm lesion of the superior pole right kidney - Recommend nonurgent dedicated CT A/P w/wo IV con for further evaluation of renal mass - Discussed with patient and he wishes to have this done while inpatient - Reviewed with Dr. Romero, hospitalist, and she is agreeable to place order - No acute intervention at this time - Will plan for outpatient follow-up with our service to discuss further management Thank you for allowing us to participate in the acute care of Mr. Mosquera. Please reconsult us with additional questions, concerns or changes in patient status. History of Present Illness Reason for Consultation: Renal mass Requesting Physician: Dr. Romero Attending Physician: Lina Romero, DO History of Present Illness 75 year old male admitted for acute respiratory failure with hypoxia secondary to pulmonary embolism. PMHx of Factor V Leiden, HTN, hyperlipidemia, type 2 diabetes, BPH, CKD. He presented to [facility] ED on 05/23/20 with c/o right sided pain and shortness of breath. CT PE chest showed cardiomegaly with bilateral pulmonary emboli, most pronounced in the right lower lobe. Incidentally noted 1.7 cm lesion of the superior pole of the right kidney suspicious for renal cell carcinoma. CT thoracic spine also noted exophytic 1.7 cm lesion of the superior pole right kidney suspicious for renal cell carcinoma. Afebrile, creatinine 1.83, WBC 12.41, Hgb 14.6. UA not suggestive of infection, negative for blood. He required supplemental oxygen on arrival. He was started on Heparin in ED and admitted by hospital medicine for further management. Our service is consulted for renal mass. Chart review: Afebrile Creatinine 1.54 WBC 7.70 Hgb 13.0 Venous Doppler US (05/26) - deep venous thrombus within the right posterior tibial vein On Heparin gtt Patient is awake and sitting up in bed. No abdominal or flank pain. Voiding without difficulty. He has BPH - on Tamsulosin. No dysuria or hematuria. No nausea or vomiting. No fever or chills. No CP or SOB. Denies prior urology evaluations. No history of kidney stones. Denies family history of prostate, bladder or kidney cancer. History of smoking as a teenager. No additional concerns today. Allergies Allergy/AdvReac Type Severity Reaction Status Date / Time meperidine Allergy Mild Verified 05/23/20 14:57 Home Medications Medication Instructions Recorded Confirmed Type allopurinol 100 mg PO BID 05/23/20 05/23/20 History aspirin 325 mg PO QAM 05/23/20 05/23/20 History diltiazem HCl 360 mg PO DAILY 05/23/20 05/23/20 History furosemide 20 mg PO DAILY 05/23/20 05/23/20 History glipizide 10 mg PO BID 05/23/20 05/23/20 History lisinopril 5 mg PO DAILY 05/23/20 05/23/20 History metoprolol tartrate 25 mg PO BID 05/23/20 05/23/20 History omeprazole 20 mg PO DAILY 05/23/20 05/23/20 History tamsulosin 0.4 mg PO HS 05/23/20 05/23/20 History apixaban [Eliquis] 5 mg PO UD #60 tab 05/26/20 Rx Patient History Medical History BPH (benign prostatic hyperplasia) CKD (chronic kidney disease) stage 3, GFR 30-59 ml/min 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 Leiden mutation GERD (gastroesophageal reflux disease) Hyperlipidemia Hypertension Family History Father Pancreatic cancer Heart disease Mother Colorectal cancer Daughter Factor V Leiden mutation Social History Smoking Status: Former smoker Hx Alcohol Use: Yes Alcohol type: hard liquor Hx Substance Use: No Preferred Language: Yi Communication Ability: Effective 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 Beliefs That Will Affect Care: None Current Living Situation: Family Other Information That Helps Us Care for You: No Feels Safe at Home: Yes Safety Concerns: Feels Safe At This Time Assistive Devices: Glasses Review of Systems Constitutional: as per Subjective / HPI Eyes: + corrective lenses Ear, Nose, Mouth, Throat: no problem reported Respiratory: as per Subjective / HPI Cardiovascular: as per Subjective / HPI Gastrointestinal: as per Subjective / HPI Genitourinary: + as per Subjective / HPI Musculoskeletal: no problem reported Integumentary: no problem reported Neurologic: no problem reported Psychiatric: no problem reported Endocrine: no problem reported Hematologic / Lymphatic: as per Subjective / HPI Physical Exam Constitutional: well developed and well nourished; no acute distress and not ill appearing Eyes: no scleral abnormality Neck: normal visual inspection and trachea midline Respiratory: normal respiratory effort and able to speak in complete sentences; no respiratory distress and no labored breathing Cardiovascular: Extremities: no calf tenderness and no pedal edema Gastrointestinal (Abdomen): Inspection/Auscultation: abdomen normal to inspection; abdomen not distended Percussion/Palpation: abdomen soft; abdomen nontender and no guarding Musculoskeletal: Head/Neck/Chest: normocephalic and head atraumatic Skin: no rashes, warm and dry Neurologic: moves all extremities and awake Psychiatric: Orientation: alert and oriented x 3 Genitourinary: no CVA tenderness Results & Data ([facility]) Vital Signs (Past 12 Hours) Vital Signs Temp Pulse Pulse Resp BP Pulse Ox 05/28/20 12:00 37.0 C 60 16 138/75 99 05/28/20 10:07 59 L 05/28/20 07:36 36.5 C 63 18 145/69 H 96 05/28/20 04:23 36.6 C 65 18 151/77 H 96 PG Care Time/CCT Total # of Minutes Spent Total Time Spent with Patient: Total time spent is greater than 50% in coordination of care (as documented) at patient's floor/unit and/or counseling patient: Coding Level of Care Code 39811 Inpt Consult Level 3 Diagnoses Renal mass N28.89
[2020-05-28] MEDS ORDERED: WARFARIN SOD 10 MG TAB PO SCH (16:00)
--- NOTE | 2020-05-28 16:19 | Hospitalist Progress Note ---
Date of Service May 28, 2020 Assessment & Plan (1) Acute respiratory failure with hypoxia: resolved and now oxygenating well on room air. (2) Acute pulmonary embolism: likely secondary to factor V Leiden mutation. Cont warfarin with heparin bridge until therapeutic. Daily INR. Monitor for bleeding. (3) Atrial fibrillation with rapid ventricular response: Lone episode in the hospital which has now resolved, sinus rhythm for >48 hours on the monitor. Likely a result of acute PE, with long-term anticoagulation not necessary at this time. Cardiology following. Continue increased metoprolol. (4) Factor V Leiden mutation: case was peripherally discussed with [facility] Hematology and coumadin was selected as anticoagulant of choice with NOAC being cost prohibitive. Will require at least 3-6 months of anticoagulation for treatment of PE and may need this longer with FVL mutation. Would recommend outpatient consultation with Hematology regarding this within 3 months time. Gave patient the name and information for this outpatient referral. (5) Renal mass: New incidental finding on CT when eval for PE 1.7 cm lesion of the superior pole right kidney suspicious for renal cell carcinoma. - concern for renal cell carcinoma CT abd/pel with and without IV contrast per Urology recommendations for better visualization. Ordered. (6) Diabetes mellitus type 2 in nonobese: A1C with moderate control, cont basal/bolus insulin while hospitalized. (7) CKD (chronic kidney disease) stage 3, GFR 30-59 ml/min: around his baseline, cont to avoid nephrotoxic substances and renally dose medications as appropriate. (8) Hypertension: Controlled with the addition of home lisinopril to regimen this morning. Cont Lasix, diltiazem and metoprolol (9) GERD (gastroesophageal reflux disease): cont PPI per home regimen (10) BPH (benign prostatic hyperplasia): - cont. tamsulosin per home regimen. (11) DVT prophylaxis: hep drip/warfarin as above. Full Code Dispo-to home in next 2-3 days when INR is 2 at least two days in a row. Lina Romero DO [facility] Hospitalist Admission and Anticipated Discharge Date Admission Date: May 23, 2020 Subjective 75 yo M presented with acute chest pain found to have acute PE, factor V Leiden mutation and concerning kidney lesion. Currently being anticoagulated on heparin drip with known CKD, bridge to warfarin therapy. No further chest pain or trouble breathing. Review of telemetry reveals that he is maintaining sinus rhythm. Tolerating PO, afebilre. INR 1.0 today, warfarin increased to 10mg daily. Review of Systems Review of Systems: All systems reviewed & are unremarkable except as noted in Subjective Physical Exam Physical Exam: CONSTITUTIONAL: WNWD, vitals as above, generally well-a ppearing EYES: normal conjunctivae, no scleral icterus ENT: external ear and nose normal, MMM RESPIRATORY: clear to auscultation bilaterally, no crackles, rales or wheezes, normal respiratory effort CARDIOVASCULAR: regular rate and rhythm, S1 and 2 heard without murmurs, gallops or rubs, no JVD, no peripheral edema GASTROINTESTINAL: soft, nontender, nondistended. MUSCULOSKELETAL: strength 5/5 throughout, head is normocephalic and atraumatic SKIN: warm and dry NEUROLOGIC: CN 2-12 grossly intact, normal cognition, normal speech, no tremor, no gross focal deficits. PSYCHIATRIC: alert cooperative and oriented to person, place and time. Results & Data Results & Data ([facility]) Vital Signs (Past 12 Hours) Vital Signs Temp Pulse Pulse Resp BP Pulse Ox 05/28/20 12:00 37.0 C 60 16 138/75 99 05/28/20 10:07 59 L 05/28/20 07:36 36.5 C 63 18 145/69 H 96 05/28/20 04:23 36.6 C 65 18 151/77 H 96 Laboratory Results Short CBC 05/28/20 Range/Units 05:36 WBC 7.70 (4.8-10.8) K/uL Hgb 13.0 L (14.0-18.0) g/dL Hct 37.3 L (42-52) % Plt Count 193 (130-400) K/uL BMP 05/28/20 05:36 Sodium 136 Potassium 4.2 Chloride 106 Carbon Dioxide 26 BUN 23 H Creatinine 1.54 H Glucose 186 H Calcium 9.0 Medications Administered Current Inpatient Medications Acetaminophen (Acetaminophen 325 Mg Tab) 650 mg PO Q4H PRN PRN Reason: Pain (1,2,3 or 4) or Fever Stop: 06/22/20 17:37 Last Admin: 05/24/20 14:39 Dose: 650 mg Documented by: Allopurinol (Allopurinol 100 Mg Tab) 100 mg PO BID TRES Stop: 06/22/20 20:59 Last Admin: 05/28/20 08:44 Dose: 100 mg Documented by: Aspirin (Aspirin 81 Mg Ectab) 162 mg PO QAM [facility] Stop: 06/23/20 08:59 Last Admin: 05/28/20 08:44 Dose: 162 mg Documented by: Dextrose (Dextrose 50% 50 Ml Syringe) 25 - 50 ml IV UD PRN; Protocol PRN Reason: Hypoglycemia Protocol Stop: 06/22/20 18:04 Diltiazem HCl (Diltiazem Hcl 180 Mg Er Cap) 360 mg PO DAILY [facility] Stop: 06/23/20 08:59 Last Admin: 05/28/20 08:44 Dose: 360 mg Documented by: Furosemide (Furosemide 20 Mg Tab) 20 mg PO QAM [facility] Stop: 06/24/20 08:59 Last Admin: 05/28/20 08:43 Dose: 20 mg Documented by: Glucagon (Glucagon For Inj 1 Mg Vial) 1 mg SQ UD PRN; Protocol PRN Reason: Hypoglycemia Protocol Stop: 06/22/20 18:04 Glucose (Glucose 10 Tabs/Tube) 4 - 8 tabs PO UD PRN; Protocol PRN Reason: Hypoglycemia Protocol Stop: 06/22/20 18:04 Glucose (Glucose 40% Gel 15 Gm Tube) 15 - 30 gm PO UD PRN; Protocol PRN Reason: Hypoglycemia Protocol Stop: 06/22/20 18:04 Hydromorphone HCl (Hydromorphone Inj 0.5 Mg/0.5 Ml Syr) 0.5 mg IV Q4H PRN PRN Reason: Pain (8, 9, or 10) Stop: 06/06/20 18:33 Last Admin: 05/25/20 08:18 Dose: 0.5 mg Documented by: Heparin Sodium/Dextrose (Heparin Sodium/Dextrose) 25,000 units in 500 mls @ 28 mls/hr IV .[id number] [facility]; Protocol Stop: 06/22/20 15:59 Last Titration: 05/28/20 06:55 Dose: 1,400 units/hr, 28 mls/hr Documented by: Insulin Aspart (Insulin Aspart 100 Units/Ml 3 Ml Pen) 0 units SC ACHS [facility] Stop: 06/22/20 20:59 Last Admin: 05/28/20 12:19 Dose: 4 units Documented by: Ketorolac Tromethamine (Ketorolac Tromethamine 15 Mg/Ml Vial) 15 mg IV Q6H PRN PRN Reason: Pain Stop: 05/29/20 07:34 Last Admin: 05/25/20 10:50 Dose: 15 mg Documented by: Lidocaine (Lidocaine 5% 1 Patch) 1 patch TD QAM [facility] Stop: 06/22/20 18:59 Last Admin: 05/28/20 08:45 Dose: Not Given Documented by: Lisinopril (Lisinopril 5 Mg Tab) 5 mg PO DAILY [facility] Stop: 06/27/20 08:59 Last Admin: 05/28/20 08:43 Dose: 5 mg Documented by: Menthol (Cough Drop (Sugar Free) Kael 24 Kael/1 Box) 1 kael BUCCAL Q1H PRN PRN Reason: Sore Throat Stop: 06/23/20 21:50 Metoprolol Tartrate (Metoprolol Tartrate 50 Mg Tab) 50 mg PO BID [facility] Stop: 06/24/20 20:59 Last Admin: 05/28/20 08:44 Dose: 50 mg Documented by: Miscellaneous (Remove Lidoderm Patch) 1 ea N/A DAILY@2100 [facility] Stop: 06/23/20 00:00 Last Admin: 05/27/20 20:35 Dose: 1 ea Documented by: Miscellaneous (Carbohydrates For Hypoglycemia ) 15 - 30 gm PO UD PRN PRN Reason: Hypoglycemia Protocol Stop: 06/22/20 18:04 Oxycodone HCl (Oxycodone Hcl Ir 5 Mg Tab (Immediate Release)) 5 mg PO Q6H PRN PRN Reason: Pain (5, 6, or 7) Stop: 06/06/20 17:43 Last Admin: 05/25/20 14:42 Dose: 5 mg Documented by: Pantoprazole Sodium (Pantoprazole 40 Mg Tab) 40 mg PO DAILY [facility]; Protocol Stop: 06/23/20 08:59 Last Admin: 05/28/20 08:45 Dose: 40 mg Documented by: Polyethylene Glycol (Polyethylene (Miralax) 17 Gm Pack) 17 gm PO DAILY PRN PRN Reason: Constipation Stop: 06/22/20 17:37 Potassium Phosphate (Pot Phosphate Monobasic W/ Sod Tab) 1 tab PO QID [facility] Stop: 06/25/20 08:59 Last Admin: 05/28/20 13:21 Dose: 1 tab Documented by: Sodium Chloride (Sodium Chloride 0.65% Na Soln 45 Ml ([place])) 1 sprays RAQUEL Q6 PRN PRN Reason: Congestion Stop: 06/24/20 09:25 Last Admin: 05/25/20 09:38 Dose: 1 sprays Documented by: Tamsulosin HCl (Tamsulosin Hcl 0.4 Mg Cap) 0.4 mg PO HS TRES Stop: 06/22/20 20:59 Last Admin: 05/27/20 20:34 Dose: 0.4 mg Documented by: Warfarin Sodium (Warfarin Sod 10 Mg Tab) 10 mg PO DAILY@1600 TRES Stop: 06/27/20 15:59 Last Admin: 05/28/20 15:42 Dose: 10 mg Documented by: (1) Acute pulmonary embolism Acute cor pulmonale presence: unspecified Pulmonary embolism type: unspecified Qualified Code(s): I26.99 - Other pulmonary embolism without acute cor pulmonale (2) CKD (chronic kidney disease) stage 3, GFR 30-59 ml/min Chronic kidney disease stage 3 subtype: unspecified whether 3a or 3b Qualified Code(s): N18.30 - Chronic kidney disease, stage 3 unspecified
[2020-05-28] MEDS: HEPARIN SODIUM/DEXTROSE 25,000 UNITS/500 ML BAG IV SCH (16:32)
[2020-05-28] MEDS ORDERED: SODIUM CHLORIDE 0.9% 1000ML 1,000 ML IV SCH (17:48)
[2020-05-28] MEDS ORDERED: OPTIRAY 300 100mL IV ONE (20:34)
--- NOTE | 2020-05-28 21:04 | CT Scan Report ---
CT SCAN OF THE ABDOMEN AND PELVIS COMBO RENAL MASS PROTOCOL CLINICAL HISTORY: Follow-up right renal lesion. COMPARISON STUDY: Chest CT dated 05/23/2020. TECHNIQUE: Before and following the IV administration of 86 cc of Optiray 300, CT scan of the abdome n and pelvis is performed from the lung bases to the proximal femora using the renal mass protocol. I mages are reviewed in the axial, sagittal, and coronal planes. IV contrast was administered without c omplication. A dose lowering technique was utilized adhering to the principles of ALARA. CT DOSE: 1504.58 mGy.cm FINDINGS: Lung bases: The heart is top normal in size and without pericardial effusion. The coronary arteries a re densely calcified. There is trace right pleural effusion and bibasilar atelectasis. Punctate calci fied granulomas are noted in the left lower lobe. There is a small hiatal hernia. Liver: The contrast-enhanced liver is normal in size, contour, and attenuation. There is no intrahepa tic biliary ductal dilatation. The hepatic veins and portal veins are patent. Gallbladder: Unremarkable. Spleen: Normal in size and attenuation. Pancreas: Unremarkable. Adrenal glands: Unremarkable. Kidneys: The contrast enhanced kidneys are atrophic and without hydronephrosis. No renal calculi are identified on the unenhanced series. The kidneys enhance and excrete symmetrically. There are 2.3 cm and 0.9 cm complex cyst identified in the upper pole of the right kidney. No enhancing cortical mass is identified. There is no evidence of urothelial lesion within the renal pelvis bilaterally or invol ving the proximal ureter. Abdominal vasculature: The abdominal aorta is normal in course and caliber noting moderate to advance d atherosclerotic calcification. Bowel: There is postoperative change from sigmoid colon resection with colocolonic anastomosis. No elizabeth wel obstruction is seen. There is advanced diverticulosis of the remaining colon without CT evidence of acute diverticulitis. Moderate fecal retention is noted. The appendix is well-visualized and norm al. Peritoneum: There is no intraperitoneal free air or abdominal ascites. Lymphadenopathy: None. Pelvic viscera: The prostate gland is enlarged and heterogeneous measuring 5.6 cm in transverse diame ter. There is median lobe hypertrophy. The bladder wall is thickened and trabeculated indicating email developer mariano outlet obstruction. There is a fat-containing left inguinal hernia. Skeletal structures: The skeletal structures are osteopenic. There is mild to moderate lumbosacral sp ondylosis. No lytic or blastic lesions are seen. IMPRESSION: 1. There are 2 complex/hyperdense cysts identified in the upper pole of the right kidney measuring up to 2.3 cm. The larger lesion corresponds to the finding of concern on the 05/23/[address] 2. No enhancing renal cortical mass is identified. 3. Prostatomegaly with evidence of chronic bladder outlet obstruction. 4. Advanced colonic diverticulosis without CT evidence of acute diverticulitis. 5. Trace right pleural effusion. 6. Additional findings as above. ACT 112: Negative or not required by law. Electronically signed by: Alexis Sanchez M.D. 05/28/2020 9:03 PM
[2020-05-28] MEDS: TAMSULOSIN HCL 0.4 MG CAP PO SCH (21:23)
[2020-05-28] MEDS: INSULIN GLARGINE SOLOSTAR 100 UNITS/ML 3 ML PEN SC SCH (23:16)
[2020-05-29 06:37] LABS: INR 1.1 (0.9-1.1); Prothrombin Time 11.1 Seconds (9.0-12.0)
[2020-05-29 06:57] LABS: Calcium 9.2 mg/dl (8.5-10.1); Creatinine Clr Calc Pharmacy 44.2 ml/min; Est GFR (African American) 47.8; Est GFR (Non-African American) 41.2; Potassium 4.7 mmol/L (3.5-5.1)
[2020-05-29 07:31] LABS: Partial Thromboplastin Ratio 2.2
[2020-05-29 07:38] LABS: Partial Thromboplastin Time 57.6 Seconds (21.0-31.0)
[2020-05-29] MEDS: lisinopril 5 MG TAB PO SCH (08:39)
[2020-05-29] MEDS: ASPIRIN 81 MG ECTAB PO SCH (08:39)
[2020-05-29] MEDS: PANTOprazole 40 MG TAB PO SCH (08:40)
[2020-05-29] MEDS: FUROSEMIDE 20 MG TAB PO SCH (08:40)
[2020-05-29] MEDS: LIDOCAINE 5% 1 PATCH TD SCH (08:41)
[2020-05-29] MEDS: METOPROLOL TARTRATE 50 MG TAB PO SCH (08:41)
[2020-05-29] MEDS: INSULIN ASPART 100 UNITS/ML 3 ML PEN SC SCH ×2 (08:42→12:42)
[2020-05-29] MEDS: INSULIN GLARGINE SOLOSTAR 100 UNITS/ML 3 ML PEN SC SCH (08:42)
[2020-05-29] MEDS: HEPARIN SODIUM/DEXTROSE 25,000 UNITS/500 ML BAG IV SCH (09:43)
[2020-05-29] MEDS: allopurinoL 100 MG TAB PO SCH (09:45)
--- NOTE | 2020-05-29 13:54 | Communication Note ---
Date of Service: May 29, 2020 CT A/P w/wo con personally reviewed with Dr. Leon and demonstrates 2 complex/hyperdense cysts identified in the upper pole of the right kidney measuring up to 2.3 cm (Bosniak 2 cysts). No enhancing renal cortical mass is identified. Findings and plan of care reviewed with patient. Discussed plan of care with Dr. Romero. Recommend follow-up with our service in 4-6 months with [facility]. Will arrange outpatient follow-up with our service. He is agreeable to the plan, all questions answered.
--- NOTE | 2020-05-29 14:33 | Discharge Summary ---
Date of Service May 29, 2020 Admission HPI Per Admitting Provider Mr. Mosquera is a 75-year-old male with a history of hypertension, diabetes mellitus type 2, hyperlipidemia, CKD stage III, factor V Leiden mutation, who presents due to right flank pain, and is found hypoxic and with acute PE. Patient was only somewhat recently diagnosed with factor V Leiden mutation as his daughter was diagnosed and then they tested other family members. He never had any issues with factor V Leiden, no history of thrombosis. Yesterday in the morning he developed pain in his posterior right chest/flank area, he still went to work but then it got somewhat worse. Then this morning patient was really uncomfortable and at that time his family decided to bring him to the hospital. He felt a little short of breath as well, mostly because he is very uncomfortable taking a deep breath. His daughter is currently at the bedside and also helps to provide history. The pain initially started at the posterior area of his right chest, however now is more at the frontal right chest. And patient is even holding his right chest. Patient required several pain medications in the ED, including morphine and Dilaudid. Patient was started on IV heparin in the ED. Reports being little more comfortable now however still has difficulty to take a deep breath or speak much. He was placed on oxygen mask and currently at 4 L. Denies being dizzy or lightheaded. Denies any abdominal pain nausea vomiting. Denies any fevers or chills. No lower extremity edema. No weakness in any extremities. Patient has no prior history of PE or DVT. In addition, when patient was evaluated for possible PE, a lesion on his right kidney was found, concerning for possible renal cell carcinoma. Patient reports family history of pancreatic cancer in his father, and colon cancer in his mother. Patient is a non-smoker. Also denies any prolonged travel or prolonged sitting. Reports that his job is active. Patient was found COVID-19 negative in the ED. Admission Exam Per Admitting Provider Constitutional: WD/WN, vitals as above + acute distress (some distress d/t pain) Eyes: PERRL, conjunctivae normal, anicteric sclerae ENMT: external ear and nose normal, oropharynx normal Neck: trachea midline, no thyromegaly normal visual inspection Respiratory: + respiratory distress (mild (on oxymask 4L)) Auscultation: lungs clear to auscultation bilaterally and + rhonchi (mild bibasilar); no rales and no wheezes Cardiovascular: RRR, no murmur, no edema Chest (Breasts): Chest: normal inspection of chest Gastrointestinal (Abdomen): normal bowel sounds, soft, nontender, no hepatosplenomegaly Percussion/Palpation: abdomen soft; no guarding and abdomen not rigid Musculoskeletal: no cyanosis or clubbing, extremities motor strength 5/5 Head/Neck/Chest: normocephalic and head atraumatic Skin: no rashes, warm and dry Neurologic: PERRL, EOMI, accommodation nl, no face palsy, no dysarthria Psychiatric: A+Ox3, euthymic affect Genitourinary: no CVA tenderness Lymphatic: no lymphedema Principal Diagnosis Acute respiratory failure with hypoxia Acute pulmonary embolus Atrial fibrillation with rapid ventricular response with spontaneous conversion to sinus rhythm Factor V Leiden mutation Renal cyst Discharge Exam CONSTITUTIONAL: WNWD, vitals as above, generally well-appearing EYES: normal conjunctivae, no scleral icterus ENT: external ear and nose normal, MMM RESPIRATORY: clear to auscultation bilaterally, no crackles, rales or wheezes, normal respiratory effort CARDIOVASCULAR: regular rate and rhythm, S1 and 2 heard without murmurs, gallops or rubs, no JVD, no peripheral edema GASTROINTESTINAL: soft, nontender, nondistended. MUSCULOSKELETAL: strength 5/5 throughout, head is normocephalic and atraumatic SKIN: warm and dry NEUROLOGIC: CN 2-12 grossly intact, normal cognition, normal speech, no tremor, no gross focal deficits. PSYCHIATRIC: alert cooperative and oriented to person, place and time. Discharge Data Allergies Allergy/AdvReac Type Severity Reaction Status Date / Time meperidine Allergy Mild Verified 05/23/20 14:57 Consultations 05/23/20 17:36 ED Decision to Admit Stat 05/25/20 09:29 Consult Cardiology Routine 05/27/20 19:44 Consult Urology Routine Ordered Studies Laboratory Results WBC 7.70 K/uL (4.8-10.8) 05/28/20 05:36 RBC 4.71 M/uL (4.7-6.1) 05/28/20 05:36 Hgb 13.0 g/dL (14.0-18.0) L 05/28/20 05:36 Hct 37.3 % (42-52) L 05/28/20 05:36 MCV 79.2 fL (80-100) L 05/28/20 05:36 MCH 27.6 pg (25-34) 05/28/20 05:36 MCHC 34.9 g/dL (32-36) 05/28/20 05:36 RDW Std Deviation 38.9 fL (36.4-46.3) 05/28/20 05:36 RDW Coeff of Sesar 13.5 % (11.5-14.5) 05/28/20 05:36 Plt Count 193 K/uL (130-400) 05/28/20 05:36 MPV 8.9 fL (7.4-10.4) 05/28/20 05:36 Immature Gran % (Auto) 0.2 % 05/23/20 14:20 Neut % (Auto) 75.3 % 05/23/20 14:20 Lymph % (Auto) 12.9 % 05/23/20 14:20 [place] % (Auto) 9.0 % 05/23/20 14:20 Eos % (Auto) 2.3 % 05/23/20 14:20 Baso % (Auto) 0.3 % 05/23/20 14:20 Neut # (Auto) 9.35 K/uL (1.4-6.5) H 05/23/20 14:20 Lymph # (Auto) 1.60 K/uL (1.2-3.4) 05/23/20 14:20 [place] # (Auto) 1.12 K/uL (0.11-0.59) H 05/23/20 14:20 Eos # (Auto) 0.28 K/uL (0-0.5) 05/23/20 14:20 Baso # (Auto) 0.04 K/uL (0-0.2) 05/23/20 14:20 Immature Gran # (Auto) 0.02 K/uL (0.00-0.02) 05/23/20 14:20 PT 11.1 Seconds (9.0-12.0) 05/29/20 05:24 INR 1.1 (0.9-1.1) 05/29/20 05:24 APTT 57.6 Seconds (21.0-31.0) H* 05/29/20 05:24 PTT Ratio 2.2 05/29/20 05:24 Sodium 137 mmol/L (136-145) 05/29/20 05:24 Potassium 4.7 mmol/L (3.5-5.1) 05/29/20 05:24 Chloride 106 mmol/L (98-107) 05/29/20 05:24 Carbon Dioxide 27 mmol/L (21-32) 05/29/20 05:24 Anion Gap 4.0 (3-11) 05/29/20 05:24 BUN 22 mg/dl (7-18) H 05/29/20 05:24 Creatinine 1.60 mg/dl (0.6-1.4) H 05/29/20 05:24 Est Cr Clr Drug Dosing 44.2 ml/min 05/29/20 05:24 Est GFR ( Amer) 47.8 05/29/20 05:24 Est GFR (Non-Af Amer) 41.2 05/29/20 05:24 BUN/Creatinine Ratio 14.0 (10-20) 05/29/20 05:24 Glucose 200 mg/dl (70-99) H 05/29/20 05:24 POC Glucose 221 mg/dl (70-99) H 05/29/20 12:18 Estimat Average Glucose 171 mg/dl 05/24/20 06:58 Hemoglobin A1c 7.6 % (4.5-5.6) H 05/24/20 06:58 Calcium 9.2 mg/dl (8.5-10.1) 05/29/20 05:24 Phosphorus 2.2 mg/dl (2.5-4.9) L 05/26/20 04:40 Magnesium 2.1 mg/dl (1.8-2.4) 05/26/20 04:40 Total Bilirubin 0.6 mg/dl (0.2-1) 05/25/20 06:37 AST 9 U/L (15-37) L 05/25/20 06:37 ALT 15 U/L (12-78) 05/25/20 06:37 Alkaline Phosphatase 65 U/L (45-117) 05/25/20 06:37 Troponin I < 0.015 ng/ml (0-0.045) 05/23/20 14:20 Total Protein 6.6 gm/dl (6.4-8.2) 05/25/20 06:37 Albumin 2.9 gm/dl (3.4-5.0) L 05/25/20 06:37 Globulin 3.7 gm/dl (2.5-4.0) 05/25/20 06:37 Albumin/Globulin Ratio 0.8 (0.9-2) L 05/25/20 06:37 Urine Color Yellow 05/23/20 14:18 Urine Appearance Clear (Clear) 05/23/20 14:18 Urine pH 5.0 (4.5-7.5) 05/23/20 14:18 Ur Specific [place] 1.015 (1.000-1.030) 05/23/20 14:18 Urine Protein 1+ (Negative) H 05/23/20 14:18 Urine Glucose (UA) Negative (Negative) 05/23/20 14:18 Urine Ketones Negative (Negative) 05/23/20 14:18 Urine Blood Negative (Negative) 05/23/20 14:18 Urine Nitrite Negative (Negative) 05/23/20 14:18 Urine Bilirubin Negative (Negative) 05/23/20 14:18 Urine Urobilinogen Negative (Negative) 05/23/20 14:18 Ur Leukocyte Esterase Negative (Negative) 05/23/20 14:18 Urine WBC (Auto) 1-5 /hpf (0-5) 05/23/20 14:18 Urine RBC (Auto) 0-4 /hpf (0-4) 05/23/20 14:18 U Hyaline Cast (Auto) 1-5 /lpf (0-5) 05/23/20 14:18 U Epithel Cells (Auto) 0-5 /lpf (0-5) 05/23/20 14:18 Urine Bacteria (Auto) Negative (Negative) 05/23/20 14:18 COVID-19 Eval Order [facility] at [facility] 05/23/20 15:55 SARS-CoV-2 (PCR) NEGATIVE (Negative) 05/23/20 15:55 Influenza Type A (PCR) Negative (Neg) 05/23/20 15:55 Influenza Type B (PCR) Negative (Neg) 05/23/20 15:55 RSV (RT-PCR) Negative (Neg) 05/23/20 15:55 Impressions Chest CTA 05/23/20 14:12 CT angio chest PE protocol HISTORY: 75 years-old Male with right pain eval for PE. Acute shortness of breath with chest pain TECHNIQUE: Multiple CTA images of the chest were obtained after the intravenous administration of 117 ml Optiray. Coronal and sagittal MIPS were obtained from the axial data set and were submitted for review. All measurements were obtained according to NASCET criteria. A dose lowering technique was utilized adhering to the principles of ALARA. COMPARISON: CT thoracic spine of same day FINDINGS: CTA: Mild cardiomegaly. No pericardial effusion. Mild coronary artery calcifications. Moderate atheromatous plaque the thoracic aorta without aneurysm or dissection. Pulmonary bullae within the distal aspect of the right lower lobar pulmonary artery extends into the segmental and subsegmental branches. Additional segmental and subsegmental pulmonary emboli of the left lower lobe and lingula. No evidence of right heart strain. CT CHEST: Unremarkable thyroid. Centrally calcified 10 mm AP window lymph node may reflect prior granulomatous disease. Trace right pleural effusion. No pneumothorax. Bronchial wall thickening. Bibasilar right greater than left groundglass densities with mild subsegmental consolidation. Central airways are patent. No pneumoperitoneum. Small hiatal hernia with mild mid and distal esophageal wall thickening. 1.7 cm exophytic soft tissue attenuating lesion of the superior pole right kidney posteriorly. There are a few subcentimeter hypodensities of the liver suggestive of cysts measuring up to 6 mm. No acute fracture. IMPRESSION: 1. Cardiomegaly with bilateral pulmonary emboli, most pronounced in the right l ower lobe. 2. No right heart strain or pulmonary infarct identified. 3. Trace right pleural effusion. 4. Right greater than left bibasilar predominant opacities suggestive of atelectasis. A nonspecific pneumonitis could appear similarly 5. 1.7 cm lesion of the superior pole right kidney suspicious for renal cell carcinoma. ACT 112: Negative or not required by law. The above report was generated using voice recognition software. It may contain grammatical, syntax or spelling errors. Electronically signed by: Beny Savage M.D. 05/23/2020 4:[address] 05/23/20 14:12 CT thoracic spine w con HISTORY: 75 years-old Male pain eval for fx acute chest and mid back pain COMPARISON: CTA chest of same day TECHNIQUE: Multiple axial CT images of the thoracic spine were obtained without the use of IV contrast. A dose lowering technique was used consistent with the principals of ALARA. FINDINGS: Pulmonary emboli of the right lower lobe with trace right pleural effusion and mild bibasilar groundglass densities. There is an exophytic 1.7 cm lesion of the penile aspect of the superior pole right kidney. Small hiatal hernia. Cardiom egaly. Demineralized appearance of the bones. Mild multilevel intervertebral disc space narrowing with mild spondylitic spurring and moderate facet arthrosis. No acute fracture, subluxation or suspicious bone lesion. IMPRESSION: 1. No acute fracture or subluxation. 2. Right lower lobe pulmonary emboli with trace right pleural effusion. 3. Exophytic 1.7 cm lesion of the superior pole right kidney suspicious for renal cell carcinoma. ACT 112: Negative or not required by law. The above report was generated using voice recognition software. It may contain grammatical, syntax or spelling errors. Electronically signed by: Beny Savage M.D. 05/23/2020 4:10 PM Chest X-Ray 05/25/20 11:15 SINGLE VIEW CHEST CLINICAL HISTORY: Atypical chest pain. Known pulmonary emboli. FINDINGS: An AP, portable, upright chest radiograph is compared to chest x-ray and chest CT dated 05/23/2020. The cardiomediastinal silhouette is unremarkable. There is a small right pleural effusion with associated right basilar atelectasis. Atelectasis is also seen at the left lung base. No pneumothorax is seen. The skeletal structures are osteopenic. The bony thorax is grossly intact. IMPRESSION: A small right pleural effusion has modestly increased as compared to 05/23/2020. ACT 112: Negative or not required by law. Electronically signed by: Alexis Sanchez M.D. 05/25/2020 12:50 PM Venous Doppler Study 05/26/20 15:30 BILATERAL LOWER EXTREMITY VENOUS DOPPLER CLINICAL HISTORY: Pulmonary emboli. COMPARISON STUDY: No previous studies for comparison. TECHNIQUE: Sonography of the deep venous system of the bilateral lower extremities was performed. Compression and augmentation were evaluated. FINDINGS: The bilateral common femoral, superficial femoral and popliteal veins are patent. No above the knee thrombus is noted. There is deep venous thrombus within the right posterior tibial vein. No additional sites of deep venous thrombus are identified. IMPRESSION: Deep venous thrombus within the right posterior tibial vein. ACT 112: Negative or not required by law. Electronically signed by: Santino Davis M.D. 05/26/2020 4:05 PM Abdomen/Pelvis CT 05/28/20 16:19 CT SCAN OF THE ABDOMEN AND PELVIS COMBO RENAL MASS PROTOCOL CLINICAL HISTORY: Follow-up right renal lesion. COMPARISON STUDY: Chest CT dated 05/23/2020. TECHNIQUE: Before and following the IV administration of 86 cc of Optiray 300, CT scan of the abdomen and pelvis is performed from the lung bases to the proximal femora using the renal mass protocol. Images are reviewed in the axial, sagittal, and coronal planes. IV contrast was administered without complication. A dose lowering technique was utilized adhering to the principles of ALARA. CT DOSE: 1504.58 mGy.cm FINDINGS: Lung bases: The heart is top normal in size and without pericardial effusion. The coronary arteries are densely calcified. There is trace right pleural effusion and bibasilar atelectasis. Punctate calcified granulomas are noted in the left lower lobe. There is a small hiatal hernia. Liver: The contrast-enhanced liver is normal in size, contour, and attenuation. There is no intrahepatic biliary ductal dilatation. The hepatic veins and portal veins are patent. Gallbladder: Unremarkable. Spleen: Normal in size and attenuation. Pancreas: Unremarkable. Adrenal glands: Unremarkable. Kidneys: The contrast enhanced kidneys are atrophic and without hydronephrosis. No renal calculi are identified on the unenhanced series. The kidneys enhance and excrete symmetrically. There are 2.3 cm and 0.9 cm complex cyst identified in the upper pole of the right kidney. No enhancing cortical mass is identified. There is no evidence of urothelial lesion within the renal pelvis bilaterally or involving the proximal ureter. Abdominal vasculature: The abdominal aorta is normal in course and caliber noting moderate to advanced atherosclerotic calcification. Bowel: There is postoperative change from sigmoid colon resection with colocolonic anastomosis. No bowel obstruction is seen. There is advanced dive rticulosis of the remaining colon without CT evidence of acute diverticulitis. Moderate fecal retention is noted. The appendix is well-visualized and normal. Peritoneum: There is no intraperitoneal free air or abdominal ascites. Lymphadenopathy: None. Pelvic viscera: The prostate gland is enlarged and heterogeneous measuring 5.6 cm in transverse diameter. There is median lobe hypertrophy. The bladder wall is thickened and trabeculated indicating chronic outlet obstruction. There is a fat-containing left inguinal hernia. Skeletal structures: The skeletal structures are osteopenic. There is mild to moderate lumbosacral spondylosis. No lytic or blastic lesions are seen. IMPRESSION: 1. There are 2 complex/hyperdense cysts identified in the upper pole of the right kidney measuring up to 2.3 cm. The larger lesion corresponds to the finding of concern on the 05/23/[address] 2. No enhancing renal cortical mass is identified. 3. Prostatomegaly with evidence of chronic bladder outlet obstruction. 4. Advanced colonic diverticulosis without CT evidence of acute diverticulitis. 5. Trace right pleural effusion. 6. Additional findings as above. ACT 112: Negative or not required by law. Electronically signed by: Alexis Sanchez M.D. 05/28/2020 9:03 PM Hospital Course (1) Acute respiratory failure with hypoxia: resolved and now oxygenating well on room air. (2) Acute pulmonary embolism: likely secondary to factor V Leiden mutation. Cont warfarin with Lovenox bridge until therapeutic. Daily INR. Monitor for bleeding. (3) Atrial fibrillation with rapid ventricular response: Lone episode in the hospital which has now resolved, sinus rhythm for >48 hours on the monitor. Likely a result of acute PE, with long-term anticoagulation not necessary at this time. Cardiology following. Continue increased metoprolol. (4) Factor V Leiden mutation: case was peripherally discussed with [facility] Hematology and coumadin was selected as anticoagulant of choice with NOAC being cost prohibitive. Will require at least 3-6 months of anticoagulation for treatment of PE and may need this longer with FVL mutation. Would recommend outpatient consultation with Hematology regarding this within 3 months time. Gave patient the name and information for this outpatient referral. (5) Renal mass: New incidental finding on CT when eval for PE 1.7 cm lesion of the superior pole right kidney suspicious for renal cell carcinoma. CT abd/pel with and without IV contrast per Urology recommendations for better visualization. CT A/P w/wo con personally reviewed with Dr. Leon and demonstrates 2 complex/hyperdense cysts identified in the upper pole of the right kidney measur ing up to 2.3 cm (Bosniak 2 cysts). No enhancing renal cortical mass is identified. Findings and plan of care reviewed with patient. Recommend follow- up with our service in 4-6 months with [facility]. Will arrange outpatient follow-up with our service. He is agreeable to the plan, all questions answered. (6) Diabetes mellitus type 2 in nonobese: A1C with moderate control, cont basal/bolus insulin while hospitalized. (7) CKD (chronic kidney disease) stage 3, GFR 30-59 ml/min: around his baseline, cont to avoid nephrotoxic substances and renally dose medications as appropriate. (8) Hypertension: Controlled with the addition of home lisinopril to regimen this morning. Cont Lasix, diltiazem and metoprolol (9) GERD (gastroesophageal reflux disease): cont PPI per home regimen (10) BPH (benign prostatic hyperplasia): - cont. tamsulosin per home regimen. Total Time Total Time Spent Total Time Spent (In Minutes): 60 Total Time Includes: Examination of the Patient, Discharge Planning, Medication Reconciliation and Communication With Other Providers Discharge Plan Discharge Items Patient Disposition: Home - Self-Care Reason For Visit: PE, POSSIBLE NEW RCC Discharge Diagnosis: Acute respiratory failure with hypoxia Acute pulmonary embolus Atrial fibrillation with rapid ventricular response with spontaneous conversion to sinus rhythm Factor V Leiden mutation Renal cyst Condition on Discharge: Good Activity: Resume your previous activity Non-emergency contact: Primary Care Provider Call non-emergency contact if: you have any medication questions, your symptoms worsen, your pain is not controlled, your pain is worsening, your pain is unusual for you, your pain is concerning for you and you have a fever Follow-up/Referrals: James Gordon MD [Primary Care Provider] - (Date & Time 06/03/2020 3:00 PM Provider James Gordon MD Department [facility] ) Diet: Carb Consistent or DM2 Addtl Attending Provider Instructions: Please take all medications as instructed on discharge as below. You are being given to blood thinners. One is called warfarin which is the medication you need to take daily for at least 3 months. The other is called enoxaparin which is a shot that goes just under the skin twice daily, which she will continue until your INR is between 2-3 for at least 2 days in a row. Please continue the enoxaparin and warfarin together until staff at the [facility] clinic guide you otherwise. You will need a repeat INR check either tomorrow, Monday, or Monday at the latest. Your Coumadin dose may need to be further adjusted from the 10 mg daily you are currently taking in order to achieve the goal INR of 2-3. While hospitalized you were found to have a cyst in your kidney. Further work- up of this reveals it is consistent with a Bosniak cyst and a renal ultrasound is recommended with follow-up as outpatient with [facility] urology in 4 to 6 months. It is unlikely given the short duration of atrial fibrillation that you will need long-term anticoagulation. However, you may need long-term anticoagulation from a factor V Leiden mutation standpoint. It may be beneficial to follow-up with a fisher mussel to further elucidate this. It was a pleasure taking care of you! Please call if you have any questions or problems. You can reach a [facility] hospitalist on duty at [facility] 24 hours a day by calling [phone]. Take care of yourself. Lina Romero DO [facility] Medicine[facility] Pending Studies at Discharge: No Stand-Alone Forms: My [facility] Medications and DC Order Prescriptions: New enoxaparin [Lovenox] 80 mg/0.8 mL syringe 80 mg subcut Q12H Qty: 10 RF: 0 warfarin 10 mg Tablet 10 mg PO DAILY@1600 Qty: 30 RF: 0 metoprolol tartrate 50 mg Tablet 50 mg PO BID Qty: 60 RF: 0 Continued glipizide 10 mg tablet 10 mg PO BID RF: 0 diltiazem HCl 360 mg capsule,extended release 24 hr 360 mg PO DAILY RF: 0 allopurinol 100 mg tablet 100 mg PO BID RF: 0 tamsulosin 0.4 mg capsule 0.4 mg PO HS RF: 0 omeprazole 20 mg capsule,delayed release(DR/EC) 20 mg PO DAILY RF: 0 lisinopril 5 mg tablet 5 mg PO DAILY RF: 0 furosemide 20 mg tablet 20 mg PO DAILY RF: 0 Discontinued metoprolol tartrate 25 mg tablet 25 mg PO BID RF: 0 aspirin 325 mg Tablet,Delayed Release (Dr/Ec) 325 mg PO QAM RF: 0 Discharge Orders: Discharge Order (Routine); Ordered 05/29/20 Ordered By: Lina Dos Santos/Other Patient Handouts: Understanding Deep Vein Thrombosis, Managing Type 2 Diabetes, Preventing Deep Vein Thrombosis, Managing Diabetes: The A1C Test Admission Data Admit Date/Time: 05/23/20 17:38 Attending Provider: Lina Romero Admit Provider: Victor Hugo Conklin Primary Care Provider: James Gordon Other Providers: Victor Hugo Conklin ; Calvin Enriquez ; José Antonio Glass Other Interventions: Discharge Summary Assessment (RN) Last Done: 05/29/20 14:49
--- NOTE | 2020-06-09 10:03 | Coding Query ---
To promote full compliance with coding requirements relating to patient care, provider participation is requested in all cases of playground director uncertainty. Please assist us with the question(s) below: Coding Question(s): The diagnosis below was documented in the Urology Consultation on 05/28/20, then subsequently fell off all further documentation. Please indicate if it is still a possible diagnosis or ruled out. Physician's Response(s): Deep Venous Thrombus within the right posterior tibial vein - (documented on 05/28/20 Urology Consultation as a finding on Venous Doppler Ultrasound from 05/26) ( x ) Diagnosed and POA ( ) Diagnosed and not POA ( ) Ruled out ( ) Other (please specify) ( ) Not a significant diagnosis - just an abnormal finding on ultrasound MTDD
== END 2020-05-29 16:55 | disposition home or self-care (01) | DRG 814 ==
LOC: ED 13:48 → SUATTDRO 17:38 → 2S 17:38 → 3N 05-28 13:41

== ENCOUNTER 2021-02-26 23:30 | Inpatient (IN) ==
[2021-02-27] MEDS ORDERED: SODIUM CHLORIDE 0.9% 1000ML 500 ML IV ONE (00:04)
[2021-02-27] MEDS ORDERED: HYDROmorphone INJ 0.5 MG/0.5 ML SYR IV STA (00:10)
--- NOTE | 2021-02-27 00:19 | Emergency Department Note ---
Impression & Plan Acute hyponatremia, Acute alteration in mental status, COVID-19 Admit to the [facility] service ED Provider Note NAME: MIGUEL EVANGELISTA AGE: 75 SEX: M ARRIVES VIA: Walk-In INFORMANT: Patient ED PROVIDER(S): Joleen Hernandez DO CHIEF COMPLAINT: Sore throat and weakness PLAN: Disposition: Admit to the [facility] Condition: Stable MEDICAL DECISION MAKING: This is a 75-year-old male patient who was diagnosed with COVID earlier today and presents back to the emergency department tonight with generalized weakness, sore throat and diarrhea. Patient was noted to be significantly confused on my exam. I discussed the case with the daughter who also noted the same thing in route to the emergency department. Patient had a normal CT scan of the brain. Laboratory studies were drawn and were compared to earlier this evening. She was significantly hyponatremic with a sodium of 125. He was bolused with IV normal saline solution. There were no other significant lab abnormalities. Patient does describe having 2 episodes of diarrhea at home. This could account for some of the sodium loss. Patient was given IV Dilaudid for the severe sore throat that he had which did give him moderate relief of that pain. Patient did desaturate to 85% after receiving IV opioid. He was placed on supplemental oxygen. I discussed the case with the [facility]ist and they will evaluate for further management. Triage Nursing notes reviewed and agree with them. Additional history obtained from the patient's daughter who I spoke with on the phone Prior medical records reviewed Vital Signs: reviewed and unremarkable. Differential diagnosis: Exacerbation of COVID-19 symptoms, dehydration, lecture light abnormality worsening pharyngitis, COVID fog ER treatment provided: IV normal saline bolus and drip IV Dilaudid Diagnostics interpreted by me: ECG: Normal sinus rhythm at [address] segment elevation or signs of ischemia. There is no ectopy. Cardiac Monitoring: Normal sinus rhythm at a rate of 68 Laboratory studies: See below Imaging studies: As per stat rad CT HEAD: No ICH, mass effect or edema. No evidence of acute cortical stroke. Visualized sinuses and mastoid air cells are clear. HPI: 75/M arrives for evaluation of weakness and sore throat. The patient was in the emergency department earlier today and was diagnosed with COVID-19. He went home and continued to have worsening sore throat became more significantly weak. He had 2 episodes of diarrhea. The patient then seemed to have some increasing confusion and worsening cough. Every time he coughs, the throat pain drastically worsens and it extends up into his ears. He has been checking his pulse ox at home and it has been okay. He did take some Tylenol for the throat pain but has not gotten any relief. While he was here in the emergency departm ent earlier today he received Tylenol, IV fluids and Ultram. He states that this helped time but when he went home the pain worsened again. ROS: See above HPI for pertinent positives & negatives. A total of 10 systems reviewed and were otherwise negative. PAST MEDICAL HISTORY:See Below PAST SURGICAL HISTORY:See Below FAMILY HISTORY:See Below SOCIAL HISTORY:See Below HOME MEDICATIONS:See list ALLERGIES:See list VITALS:See Below PHYSICAL EXAMINATION: HEENT: Head - normocephalic and atraumatic Pupils are equal, round, and reactive to light. Extraocular eye muscles are intact, and sclera are anicteric. Nose - moist nasal mucosa without discharge. Mouth - moist buccal mucosa. Oropharynx is nonerythematous and there is no tonsillar exudate or edema noted. Neck: Supple; no JVD or nuchal rigidity Heart: Regular rate and rhythm. There is a normal S1 and S2 with no murmurs, clicks, or gallops appreciated. Lungs: Clear to auscultation bilaterally with no wheezes, rales, or rhonchi. Abdomen: Soft, completely nontender, nondistended, with good bowel sounds. There are no palpable pulsatile masses or hepatosplenomegaly. There is no guarding, rigidity, or rebound noted. Extremities: No evidence of cyanosis, clubbing, or edema. There are easily pa lpable peripheral pulses. Skin: warm and dry with good turgor and no rashes. Neuro: The patient is alert and oriented to date time and place but at times seems to be confused with what he is saying as he will frequently talk about categorizing items on his keyboard and computer. ED COURSE: Times/Reassessments: 2344: The patient was evaluated in room A12. A complete history and physical was performed. I donned complete PPE as the patient is CO VID-positive. An order was placed for continuous cardiac monitoring. The patient was in a normal sinus rhythm at a rate of 68. Patient was somewhat confused on my exam. I did discuss the case with the patient's daughter by phone. She states that yes she had noticed that he was somewhat confused and seemed to be preoccupied with discussion and conversation about moving things off of his computer. The patient did discuss that with me except he talked about categorizing things on his computer but could not elaborate or make any sense of what he was saying to me about that. The patient was bolused with normal saline solution. He went for CT scan of the brain. Upon returning from radiology, he was bolused with additional saline and started on a saline drip as he was noted to be hyponatremic. Discussed the case with the [facility] hospitalist and they will evaluate for further management. I brought the patient's daughter up to speed with the laboratory results and explained that he would be staying in the hospital. 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 Leiden mutation GERD (gastroesophageal reflux disease) Hyperlipidemia Hypertension Family History Father Pancreatic cancer Heart disease Mother Colorectal cancer Daughter Factor V Leiden mutation Social History Smoking Status: Never smoker Hx Alcohol Use: Yes Alcohol type: hard liquor Hx Substance Use: No Preferred Language: Spanish Communication Ability: Effective Optometric Tech Required: No Beliefs That Will Affect Care: None Current Living Situation: Family Feels Safe at Home: Yes Assistive Devices: None Allergies Allergies Allergy/AdvReac Type Severity Reaction Status Date / Time meperidine Allergy Unknown Unknown Verified 02/27/21 00:06 Home Meds Home Medications Medication Instructions Recorded Confirmed allopurinol 100 mg tablet 200 mg PO HS 05/23/20 02/27/21 diltiazem HCl 360 mg capsule,24 360 mg PO QAM 05/23/20 02/27/21 hr,extended release furosemide 20 mg tablet 20 mg PO QAM 05/23/20 02/27/21 glipizide 10 mg tablet 10 mg PO BID 05/23/20 02/27/21 lisinopril 5 mg tablet 5 mg PO QAM 05/23/20 02/27/21 omeprazole 20 mg capsule,delayed 20 mg PO DAILYBB 05/23/20 02/27/21 release tamsulosin 0.4 mg capsule 0.4 mg PO HS 05/23/20 02/27/21 atorvastatin 40 mg tablet 40 mg PO HS 02/26/21 02/27/21 warfarin 5 mg tablet See Rx Instructions .ROUTE .COMPLEX 02/27/21 02/27/21 Previous Rx's Medication Instructions Recorded metoprolol tartrate 50 mg tablet 50 mg PO BID #60 tab 05/29/20 albuterol sulfate 90 mcg/actuation 2 inh INHALATION Q4H PRN #8.5 g 02/26/21 aerosol inhaler benzonatate 100 mg capsule 200 mg PO TID PRN #30 cap 02/26/21 tramadol 50 mg tablet (Ultram) 50 mg PO Q6H PRN #30 tab 02/26/21 Results & Data (ED) Vital Signs Vital Signs - 24 hr 02/26/21 23:36 02/27/21 00:18 02/27/21 01:00 Temperature 37.2 C Temperature Source Temporal Artery Scan Pulse Rate 68 67 Pulse Rate from SpO2 Sensor 67 Respiratory Rate 18 22 Respiratory Effort / Characteristics Non-Labored Spontaneous Respiratory Depth Normal Respiratory Pattern Regular Blood Pressure 135/70 154/75 H Blood Pressure Mean 91 101 Blood Pressure Position Sitting Pulse Oximetry 94 92 91 Oxygen Delivery Method Room Air Room Air Oxygen Flow Rate Sepsis Recent Fever Within 48 Hours Yes Sepsis New/Unexplained Change in Mental Status N/A Sepsis Action Taken by Nursing No Action Required Oxygen Flow Rate - Titration Pulse Oximetry Post Tiitration 02/27/21 01:54 02/27/21 02:00 Temperature Temperature Source Pulse Rate 69 Pulse Rate from SpO2 Sensor 69 Respiratory Rate 24 Respiratory Effort / Characteristics Respiratory Depth Respiratory Pattern Blood Pressure 160/79 H Blood Pressure Mean 106 Blood Pressure Position Pulse Oximetry 85 L 91 Oxygen Delivery Method Nasal Cannula Nasal Cannula Oxygen Flow Rate 0 4 Sepsis Recent Fever Within 48 Hours Sepsis New/Unexplained Change in Mental Status Sepsis Action Taken by Nursing Oxygen Flow Rate - Titration 2 Pulse Oximetry Post Tiitration 95 Laboratory Data Result diagrams: 02/27/21 00:28 02/27/21 00:28 Lab Results 02/27/21 02/27/21 Range/Units 00:28 00:28 WBC 11.01 H (4.8-10.8) K/uL RBC 4.66 L (4.7-6.1) M/uL Hgb 13.2 L (14.0-18.0) g/dL Hct 38.3 L (42-52) % MCV 82.2 (80-100) fL MCH 28.3 (25-34) pg MCHC 34.5 (32-36) g/dL RDW Std Deviation 40.8 (36.4-46.3) fL RDW Coeff of Sesar 13.5 (11.5-14.5) % Plt Count 147 (130-400) K/uL MPV 9.5 (7.4-10.4) fL Immature Gran % (Auto) 0.2 % Neut % (Auto) 81.0 % Lymph % (Auto) 8.6 % Foard % (Auto) 10.0 % Eos % (Auto) 0.1 % Baso % (Auto) 0.1 % Neut # (Auto) 8.92 H (1.4-6.5) K/uL Lymph # (Auto) 0.95 L (1.2-3.4) K/uL Foard # (Auto) 1.10 H (0.11-0.59) K/uL Eos # (Auto) 0.01 (0-0.5) K/uL Baso # (Auto) 0.01 (0-0.2) K/uL Immature Gran # (Auto) 0.02 (0.00-0.02) K/uL Sodium 125 L D (136-145) mmol/L Potassium 4.7 (3.5-5.1) mmol/L Chloride 95 L (98-107) mmol/L Carbon Dioxide 22 (21-32) mmol/L Anion Gap 8 (3-11) BUN 21 (6-23) mg/dl Creatinine 1.66 H (0.6-1.4) mg/dl Est Cr Clr Drug Dosing 44.1 ml/min Est GFR ( Amer) 45.7 ml/min Est GFR (Non-Af Amer) 39.4 ml/min BUN/Creatinine Ratio 12.7 (10-20) Glucose 253 H (70-99(Fasting)) mg/dl Calcium 8.6 (8.5-10.1) mg/dl Total Bilirubin 0.7 (0.2-1.0) mg/dl AST 15 (13-39) U/L ALT 11 (7-52) U/L Alkaline Phosphatase 47 (34-104) U/L Total Protein 6.5 (6.0-8.3) gm/dl Albumin 3.9 (3.4-5.0) gm/dl Globulin 2.6 (2.5-4.0) gm/dl Albumin/Globulin Ratio 1.5 (0.9-2) Administered Medications Sodium Chloride (Nss) 500 mls @ 125 mls/hr IV .Q4H TRES Stop: 03/29/21 02:14 Last Admin: 02/27/21 02:50 Dose: 125 mls/hr Documented by: [id number] Discontinued Medications Hydromorphone HCl (Hydromorphone Inj 0.5 Mg/0.5 Ml Syr) 0.5 mg IV NOW STA Stop: 02/27/21 00:11 Last Admin: 02/27/21 00:32 Dose: 0.5 mg Documented by: [id number] Sodium Chloride (Nss 1000ml) 500 mls @ 999 mls/hr IV .Q31M ONE Stop: 02/27/21 00:34 Last Infusion: 02/27/21 01:03 Dose: 0 mls/hr Documented by: [id number] Admin: 02/27/21 00:32 Dose: 999 mls/hr Documented by: [id number] Sodium Chloride (Nss) 500 mls @ 999 mls/hr IV .Q31M ONE Stop: 02/27/21 02:43 Last Infusion: 02/27/21 02:50 Dose: 0 mls/hr Documented by: [id number] Admin: 02/27/21 02:19 Dose: 999 mls/hr Documented by: [id number] Discharge Plan Visit Data Chief Complaint: Illness Stated Complaint: COVID+ SYMPTOMS WORSE, THROAT SORE, WEAK ED Provider: Joleen Hernandez Discharge Problem: Acute hyponatremia, Acute alteration in mental status, COVID-19 Forms Stand Alone Forms: [facility] Prescriptions Prescriptions: No Action glipizide 10 mg tablet 10 mg PO BID RF: 0 diltiazem HCl 360 mg capsule,extended release 24 hr 360 mg PO QAM RF: 0 allopurinol 100 mg tablet 200 mg PO HS RF: 0 tamsulosin 0.4 mg capsule 0.4 mg PO HS RF: 0 omeprazole 20 mg capsule,delayed release(DR/EC) 20 mg PO DAILYBB RF: 0 lisinopril 5 mg tablet 5 mg PO QAM RF: 0 furosemide 20 mg tablet 20 mg PO QAM RF: 0 metoprolol tartrate 50 mg Tablet 50 mg PO BID Qty: 60 RF: 0 atorvastatin 40 mg tablet 40 mg PO HS RF: 0 benzonatate 100 mg capsule 200 mg PO TID PRN (Reason: cough) Qty: 30 RF: 0 tramadol [Ultram] 50 mg tablet 50 mg PO Q6H PRN (Reason: pain) Qty: 30 RF: 0 albuterol sulfate 90 mcg/actuation HFA aerosol inhaler 2 inh inhalation Q4H PRN (Reason: shortness of breath or wheezing) Qty: 8.5 RF: 0 warfarin 5 mg tablet See Rx Instructions .ROUTE .COMPLEX RF: 0 Referrals Referrals: James Gordon MD [Primary Care Provider] -
[2021-02-27 00:43] LABS: Basophils # (auto) 0.01 K/uL (0-0.2); Basophils % (auto) 0.1 %; Eosinophils # (auto) 0.01 K/uL (0-0.5); Eosinophils % (auto) 0.1 %; Hematocrit (blood only) 38.3 % (42-52); Hemoglobin 13.2 g/dL (14.0-18.0); Immature Granulocytes # (auto) 0.02 K/uL (0.00-0.02); Immature Granulocytes % (auto) 0.2 %; Lymphocytes # (auto) 0.95 K/uL (1.2-3.4); Lymphocytes % (auto) 8.6 %; Mean Corpuscular Hemoglobin 28.3 pg (25-34); Mean Corpuscular Hgb Conc 34.5 g/dL (32-36); Mean Corpuscular Volume 82.2 fL (80-100); Mean Platelet Volume 9.5 fL (7.4-10.4); Neutrophils # (auto) 8.92 K/uL (1.4-6.5); Platelet Count 147 K/uL (130-400); RDW Coefficient of Variation 13.5 % (11.5-14.5); RDW Standard Deviation 40.8 fL (36.4-46.3); Red Blood Count 4.66 M/uL (4.7-6.1); White Blood Count 11.01 K/uL (4.8-10.8)
[2021-02-27 01:10] LABS: Albumin Globulin Ratio 1.5 (0.9-2); Albumin Level 3.9 gm/dl (3.4-5.0); BUN Creatinine Ratio 12.7 (10-20); Bilirubin,Total 0.7 mg/dl (0.2-1.0); Calcium 8.6 mg/dl (8.5-10.1); Creatinine Clr Calc Pharmacy 44.1 ml/min; Est GFR (African American) 45.7 ml/min; Est GFR (Non-African American) 39.4 ml/min; Globulin 2.6 gm/dl (2.5-4.0); Potassium 4.7 mmol/L (3.5-5.1); Total Protein 6.5 gm/dl (6.0-8.3)
[2021-02-27] MEDS ORDERED: SODIUM CHLORIDE 0.9% 500 ML IV ONE (02:13)
[2021-02-27] MEDS ORDERED: SODIUM CHLORIDE 0.9% 500 ML IV SCH (02:15)
[2021-02-27] MEDS ORDERED: ALBUTEROL HFA 8 GM INHALER INH PRN (05:43)
[2021-02-27] MEDS ORDERED: BENZONATATE 100 MG CAPSULE PO PRN (05:43)
[2021-02-27] MEDS ORDERED: ACETAMINOPHEN 325 MG TAB PO PRN (05:43)
[2021-02-27] MEDS ORDERED: NITROGLYCERIN SL 0.4 MG/TAB TAB SL PRN (05:43)
[2021-02-27] MEDS ORDERED: WARFARIN SOD 5 MG TAB PO SCH (05:43)
[2021-02-27] MEDS ORDERED: ONDANSETRON INJ 2 MG/ML 2 ML VIAL IV PRN (05:43)
[2021-02-27] MEDS ORDERED: traMADol HCL 50 MG TABLET PO PRN ×2 (05:43→14:32)
--- NOTE | 2021-02-27 06:12 | CT Scan Report ---
CT SCAN OF THE BRAIN WITHOUT IV CONTRAST CLINICAL HISTORY: Change in mental status. COMPARISON STUDY: No priors. TECHNIQUE: Unenhanced axial CT scan of the brain is performed from the vertex to the skull base. A do se lowering technique was utilized adhering to the principles of ALARA. CT DOSE: 614.27 mGy.cm FINDINGS: Brain parenchyma: There are age-related involutional changes noting mild subcortical and periventric ular microangiopathic change. There is no hemorrhage, mass effect, or evidence of acute territorial i schemia by CT criteria. Mosquera-white matter differentiation is preserved. No extra-axial fluid collecti on is seen. Ventricles, sulci, cisterns: Prominent secondary to involutional change. Intracranial vasculature: There is atherosclerotic calcification of the cavernous carotid and vertebr al arteries. Calvarium: Unremarkable. Sinuses and mastoids: The visualized paranasal sinuses are clear. The mastoid air cells are well pneu matized. Orbits: The bony orbits are grossly intact. IMPRESSION: There is no hemorrhage, mass effect, or evidence of acute territorial ischemia by CT crit miya. ACT 112: Negative or not required by law. Electronically signed by: Alexis Sanchez M.D. 02/27/2021 6:11 AM
[2021-02-27] MEDS ORDERED: GLUCAGON FOR INJ 1 MG VIAL IM PRN (06:15)
[2021-02-27] MEDS ORDERED: CARBOHYDRATES FOR HYPOGLYCEMIA PO PRN (06:15)
[2021-02-27] MEDS ORDERED: GLUCOSE 10 TABS/TUBE PO PRN (06:15)
[2021-02-27] MEDS ORDERED: DEXTROSE 50% 50 ML SYRINGE IV PRN (06:15)
[2021-02-27] MEDS ORDERED: GLUCOSE 40% GEL 15 GM TUBE PO PRN (06:15)
[2021-02-27] MEDS ORDERED: dexAMETHasone 6 MG in SYRINGE 0 ML IV ONE (06:30)
[2021-02-27] MEDS: SODIUM CHLORIDE 0.9% 1000ML 1,000 ML IV SCH ×2 (06:35→19:59)
[2021-02-27 07:02] LABS: Basophils # (auto) 0.01 K/uL (0-0.2); Basophils % (auto) 0.1 %; Hematocrit (blood only) 38.4 % (42-52); Lymphocytes % (auto) 11.4 %; Mean Corpuscular Hemoglobin 27.8 pg (25-34); Mean Corpuscular Hgb Conc 33.9 g/dL (32-36); Mean Corpuscular Volume 82.2 fL (80-100); Mean Platelet Volume 9.4 fL (7.4-10.4); Monocytes # (auto) 0.74 K/uL (0.11-0.59); Monocytes % (auto) 10.6 %; Neutrophils # (auto) 5.45 K/uL (1.4-6.5); Neutrophils % (auto) 77.9 %; Platelet Count 133 K/uL (130-400); RDW Coefficient of Variation 13.6 % (11.5-14.5); RDW Standard Deviation 40.8 fL (36.4-46.3); Red Blood Count 4.67 M/uL (4.7-6.1)
--- NOTE | 2021-02-27 07:10 | XRay Report ---
SINGLE VIEW CHEST CLINICAL HISTORY: Generalized weakness. Covid. FINDINGS: An AP, portable, upright chest radiograph is compared to study dated 02/26/2021. The heart i s mildly enlarged. There is increasing bibasilar consolidation as compared to yesterday. No large ple ural effusion is identified. No pneumothorax is seen. The skeletal structures are osteopenic. The bon y thorax is grossly intact. IMPRESSION: There is increasing bibasilar consolidation as compared to yesterday consistent with the reported history of a viral pneumonia. Radiographic follow-up to resolution is recommended. ACT 112: Negative or not required by law. Electronically signed by: Alexis Sanchez M.D. 02/27/2021 7:09 AM
[2021-02-27 07:23] LABS: INR 1.6 (0.9-1.1); Prothrombin Time 15.3 Seconds (9.0-12.0)
[2021-02-27 07:29] LABS: BUN Creatinine Ratio 13.2 (10-20); Calcium 8.1 mg/dl (8.5-10.1); Creatinine Clr Calc Pharmacy 48.1 ml/min; Est GFR (African American) 50.9 ml/min; Est GFR (Non-African American) 43.9 ml/min; Magnesium 1.4 mg/dl (1.7-2.4); Potassium 4.6 mmol/L (3.5-5.1)
--- NOTE | 2021-02-27 07:41 | Electrocardiogram Report ---
Test Reason : Blood Pressure : / mmHG Vent. Rate : 066 BPM Atrial Rate : 066 BPM P-R Int : 172 ms QRS Dur : 096 ms QT Int : 376 ms P-R-T Axes : 047 -45 074 degrees QTc Int : 394 ms Normal sinus rhythm Left axis deviation Abnormal ECG When compared with ECG of 25-MAY-2020 08:19, Sinus rhythm has replaced Atrial fibrillation Vent. rate has decreased BY 72 BPM QRS axis Shifted left Confirmed by Amaury Martínez ([id number]) on 02/27/2021 7:40:33 AM Referred By: REFERRED SELF Confirmed By:Jonh Martínez
[2021-02-27] MEDS: cefTRIAXone SODIUM 2,000 MG in DEXTROSE 5% 50 ML IV SCH (08:01)
[2021-02-27] MEDS: PANTOprazole 40 MG TAB PO SCH (08:01)
[2021-02-27] MEDS: METOPROLOL TARTRATE 50 MG TAB PO SCH ×2 (08:02→20:57)
[2021-02-27] MEDS: lisinopril 5 MG TAB PO SCH (08:02)
--- NOTE | 2021-02-27 08:18 | History and Physical Report ---
DATE OF ADMISSION: 02/27/2021. CHIEF COMPLAINT: COVID, hyponatremia. HISTORY OF PRESENT ILLNESS: This is a 75-year-old male with past medical history significant for diabetes, hyperlipidemia, history of factor V Leiden mutation, acute pulmonary embolism on Coumadin, hypertension, GERD, BPH, chronic kidney disease stage III, gout arthropathy comes because of severe sore throat. The patient was in the ER yesterday morning for pharyngitis and weakness and found to have COVID-19 and was discharged home with advice to get monoclonal antibodies as he didnot had booster shot., comes back as the patient seems confused at home .In the ER, his labs showed sodium 125, was 134 yesterday. The patient is not drinking or eating much, poor appetite and he has sore throat since last Monday. Denies any fever, some cough, bringing up phlegm, no shortness of breath, no chest pain, no headache, no blurred vision, no earache, no nausea, no vomiting, no abdominal pain, no diarrhea. Normal bladder movements. The patient is currently resting comfortably and stable, but has sore throat. In the ER, he was given a dose of Dilaudid, which dropped his oxygen saturations, prior to that his oxygen saturations were okay. Currently requiring oxygen. ALLERGIES: MEPERIDINE. PAST MEDICAL HISTORY: As mentioned above. PAST SURGICAL HISTORY: Amputation of the right second digit, colonoscopy, EGDs, partial removal of colon for diverticulitis, repair of tibial shaft fracture at the age of 5 years, ultrasonic transrectal biopsy. MEDICATIONS: Currently, the patient is on albuterol 2 puffs inhalation q. 4 hours p.r.n., allopurinol 200 mg p.o. at bedtime, atorvastatin 40 mg p.o. at bedtime, benzonatate 200 mg p.o. t.i.d. p.r.n., diltiazem 360 mg p.o. a.m., furosemide 20 mg p.o. a.m., glipizide 10 mg p.o. b.i.d., lisinopril 5 mg p.o. a.m., metoprolol tartrate 50 mg p.o. b.i.d., omeprazole 20 mg p.o. daily, Flomax 0.4 mg p.o. at bedtime, tramadol 50 mg p.o. q. 6 hours p.r.n., Coumadin as directed. FAMILY HISTORY: Significant for father had pancreatic cancer with mets to liver; mother had colon cancer. Father has heart disorder, hypertension. SOCIAL HISTORY: , no smoking. Drinks on Monday night sometimes. No drug use. REVIEW OF SYSTEMS: As per HPI. Rest of the review of system is negative. PHYSICAL EXAMINATION: GENERAL: The patient is of moderate build, not in acute distress. VITAL SIGNS: Temperature 37.2, pulse 91, respiratory rate 18, blood pressure 176/97, oxygen 96% on 4 liters. HEENT: Pupils equal, round and reactive to light. Oral mucosa moist. NECK: No JVD. No neck masses. CARDIOVASCULAR: S1 and S2 heard. Regular rate and rhythm. No murmur, no gallop. RESPIRATORY: Normal AP diameter. No accessory muscle use. No wheezing, no crackles. ABDOMEN: Soft, bowel sounds present, nontender, no distention. CENTRAL NERVOUS SYSTEM: Cranial nerves II-XII grossly intact, nonfocal. EXTREMITIES: No edema, no erythema. LABORATORY DATA: WBC 11.1, hemoglobin 13.2, hematocrit 38.3, platelets 147. Sodium 125, potassium 4.0, chloride 95, bicarbonate 22, BUN 21, creatinine 1.6, serum glucose 253, calcium 8.6, total bilirubin 0.7, AST 15, ALT 11, alkaline phosphatase 47. IMAGING DATA: CT of the head, preliminary report, no acute findings. Chest x- ray report, no acute findings. EKG: Normal sinus rhythm at a rate of 66, left axis deviation, no acute ST changes seen. ASSESSMENT AND PLAN: This is a 75-year-old male who was diagnosed with COVID- 19, who presents with severe sore throat and hyponatremia. 1. Hyponatremia most likely from COVID and dehydration. Getting gentle fluids. Follow BMP q. 4 hours. Check serum osmolality, serum sodium and urine osmolality. Monitor for sodium correction closely. Avoid aggressive correction. If not improving, we will consult Nephrology. 2. Severe sore throat, probably secondary to COVID. Got dose of Dilaudid in the ER, the oxygen saturation dropped. We will give a dose of Decadron and place him empirically on Rocephin. Monitor the response. 3. COVID-19. Initially he was not requiring oxygen, but with Dilaudid his oxygen saturation dropped down. He continues to be requiring oxygen. We will start him on remdesivir and steroids if continued to require oxygen.. The patient received COVID shot, did not receive booster shots. 4. Diabetes. Holding his glipizide. Place him on Lantus insulin sliding scale. Follow the blood sugars. 5. Hyperlipidemia. Continue statin. 6. Gout. Continue allopurinol. 7. Hypertension, on diltiazem, metoprolol and lisinopril. Monitor the blood pressure. 8. Benign prostatic hyperplasia. On Flomax. 9. Gastroesophageal reflux disease. On omeprazole. 10. History of factor V Leiden mutation, history of pulmonary embolism. On Coumadin. Follow the PT/INR. 11. History of edema on Lasix. Currently holding the Lasix. Monitor for volume overload. 12. History of chronic kidney disease stage III. Baseline creatinine around 1.7, currently creatinine of 1.6, we will follow the labs. 13. Deep venous thrombosis prophylaxis. On Coumadin. Follow PT/INR. DISPOSITION: Closely monitor in the med tele. PT/OT prior to discharge. Social service to help with discharge planning. Job ID: [id number] [facility]
[2021-02-27] MEDS: INSULIN ASPART PER UNIT SC SCH ×4 (09:13→20:42)
[2021-02-27] MEDS: INSULIN GLARGINE SOLOSTAR 100 UNITS/ML 3 ML PEN SC SCH ×2 (09:14→20:43)
[2021-02-27] MEDS: MAGNESIUM OXIDE 400 MG TAB PO SCH ×2 (09:23→20:57)
[2021-02-27] MEDS: MAGNESIUM SULFATE / D5W 1 GM/100 ML BAG IV SCH ×2 (09:32→12:28)
[2021-02-27 13:20] LABS: BUN Creatinine Ratio 13.1 (10-20); Calcium 8.7 mg/dl (8.5-10.1); Creatinine Clr Calc Pharmacy 45.7 ml/min; Est GFR (African American) 47.8 ml/min; Est GFR (Non-African American) 41.2 ml/min; Potassium 4.9 mmol/L (3.5-5.1)
--- NOTE | 2021-02-27 14:01 | Hospitalist Progress Note ---
Date of Service February 27, 2021 Assessment & Plan (1) COVID-19: (2) Pharyngitis: (3) Weakness: (4) Acute hyponatremia: Plan: ASSESSMENT AND PLAN: This is a 75-year-old male who was diagnosed with COVID- 19, who presents with severe sore throat and hyponatremia. ACUTE HYPOXIC RESPIRATORY FAILURE SECONDARY TO COVID-19 INFECTION Currently saturating 95% on 4 L of oxygen Chest x-ray bilateral pneumonia, bibasilar mostly Decadron day #1 Remdesivir day #1, discussed with patient, he is agreeable and understanding of risks and benefits Heparin for DVT prophylaxis Incentive spirometry, flutter valve Mucinex SEVERE SORE THROAT LIKELY SECONDARY TO PHARYNGITIS SECONDARY TO COVID-19 Decadron should help with the pharyngitis Tylenol as needed, Magic swizzle and tramadol as needed ACUTE HYPONATREMIA, LIKELY HYPOVOLEMIC FROM POOR INTAKE Sodium 126 Repeat every 6 hours IV NSS ordered ACUTE METABOLIC ENCEPHALOPATHY LIKELY SECONDARY TO COVID-19 INFECTION, HYPOXIA Resolved DIABETES TYPE 2 Glipizide held Insulin sliding scale Glycemic control consulted HYPERTENSION Continue diltiazem, lisinopril, metoprolol As needed hydralazine HISTORY OF FACTOR V [employer]Y[place] MUTATION History of PE INR 1.6 Continue with Coumadin Follow-up INR HISTORY OF EDEMA On Lasix Lasix held due to dehydration HISTORY OF CKD 3 Creatinine 1.6 Baseline Monitor closely DVT prophylaxis INR subtherapeutic Heparin subcu every 8 hours until INR therapeutic Disposition Pending PT and OT evaluation plan of care discussed with patient in detail and at length all questions answered he is understanding, agreeable, comfortable with the plan of care Admission and Anticipated Discharge Date Admission Date: February 27, 2021 Subjective Follow-up for COVID-19 pneumonia, acute metabolic encephalopathy, etc. seen sitting up in bed, on 2 L of oxygen, awake and alert, answering all questions appropriately Not in distress Appears somewhat weak States he feels somewhat improved compared to admission Breathing is okay, has intermittent dry cough No chest pain, leg pain Still reports moderate sore throat, no problems with swallowing No other symptoms Review of Systems Review of Systems: all noted and negative except for above Physical Exam Physical Exam: General- oriented x 3, not in distress, speaks in sentences with no effort or accessory muscle use Head- atraumatic Eyes- PERRL, EOMI, anicteric ENT- oropharynx clear Neck- supple, no JVD, no adenopathy, no thyromegaly; carotids +2/2, no bruits appreciated Lungs- clear to auscultation bilaterally, no rales/wheezes Heart- normal rate, regular rhythm; no murmur, no gallop, no rub appreciated Abdomen- normal bowel sounds, nondistended, soft, nontender, no masses or hepatosplenomegaly Extremities- no pretibial edema, no calf tenderness; peripheral pulses intact Neuro- alert, oriented x 3; CN 2-12 grossly intact; motor 5/5 bilaterally;sensation 100% on all extremities; no other gross focal neurologic deficits Skin- warm & dry Results & Data Results & Data ([facility]) Vital Signs (Past 12 Hours) Vital Signs Temp Pulse Pulse Resp BP BP Pulse Ox 02/27/21 10:44 38.0 C H 75 18 152/79 H 95 02/27/21 10:00 83 28 H 180/80 H 97 02/27/21 09:00 97 H 16 95 02/27/21 08:00 92 H 19 171/87 H 95 02/27/21 07:00 87 23 96 02/27/21 05:10 38.1 C H 100 H 26 H 182/79 H 93 02/27/21 04:53 91 H 18 176/97 H 96 02/27/21 03:00 75 18 186/89 H 93 02/27/21 02:00 69 24 160/79 H 91 all noted and reviewed including below (1) Pharyngitis Pharyngitis/tonsillitis etiology: other specified organisms Qualified Code(s): J02.8 - Acute pharyngitis due to other specified organisms
[2021-02-27] MEDS: HEPARIN SOD 5,000 UNIT/0.5 ML VIAL SQ SCH ×2 (15:19→21:02)
[2021-02-27] MEDS: ALUMINUM/MAGNESIUM SUSP 50 ML, diphenhydrAMINE Syrup 125 MG, LIDOCAINE VISCOUS 2% SOLN ... PO PRN (15:33)
[2021-02-27] MEDS ORDERED: REMDESIVIR 200 MG in SODIUM CHLORIDE 0.9% 210 ML IV ONE (16:00)
[2021-02-27] MEDS: WARFARIN SOD 10 MG TAB PO SCH (17:04)
[2021-02-27 19:06] LABS: BUN Creatinine Ratio 15.1 (10-20); Calcium 8.4 mg/dl (8.5-10.1); Creatinine Clr Calc Pharmacy 48.1 ml/min; Est GFR (African American) 50.9 ml/min; Est GFR (Non-African American) 43.9 ml/min; Potassium 4.7 mmol/L (3.5-5.1)
[2021-02-27] MEDS: allopurinoL 100 MG TAB PO SCH (20:57)
[2021-02-27] MEDS: ATORVASTATIN 40 MG TAB PO SCH (20:57)
[2021-02-27] MEDS: TAMSULOSIN HCL 0.4 MG CAP PO SCH (21:01)
[2021-02-28 01:22] LABS: BUN Creatinine Ratio 15.5 (10-20); Calcium 8.3 mg/dl (8.5-10.1); Creatinine Clr Calc Pharmacy 47.2 ml/min; Est GFR (African American) 49.7 ml/min; Est GFR (Non-African American) 42.8 ml/min; Potassium 4.5 mmol/L (3.5-5.1)
[2021-02-28] MEDS: PANTOprazole 40 MG TAB PO SCH (06:34)
[2021-02-28] MEDS: HEPARIN SOD 5,000 UNIT/0.5 ML VIAL SQ SCH ×2 (06:35→14:48)
[2021-02-28] MEDS: cefTRIAXone SODIUM 2,000 MG in DEXTROSE 5% 50 ML IV SCH (06:35)
[2021-02-28] MEDS ORDERED: PHARMACY GLYCEMIC MGMT CONSULT PRN (07:20)
[2021-02-28 07:45] LABS: Hematocrit (blood only) 39.6 % (42-52); Hemoglobin 13.7 g/dL (14.0-18.0); Immature Granulocytes # (auto) 0.02 K/uL (0.00-0.02); Immature Granulocytes % (auto) 0.2 %; Lymphocytes # (auto) 1.23 K/uL (1.2-3.4); Lymphocytes % (auto) 10.8 %; Mean Corpuscular Hemoglobin 28.5 pg (25-34); Mean Corpuscular Hgb Conc 34.6 g/dL (32-36); Mean Corpuscular Volume 82.5 fL (80-100); Mean Platelet Volume 9.5 fL (7.4-10.4); Monocytes # (auto) 0.91 K/uL (0.11-0.59); Neutrophils # (auto) 9.22 K/uL (1.4-6.5); Platelet Count 151 K/uL (130-400); RDW Coefficient of Variation 13.5 % (11.5-14.5); RDW Standard Deviation 40.7 fL (36.4-46.3); White Blood Count 11.38 K/uL (4.8-10.8)
[2021-02-28] MEDS: dexAMETHasone 6 MG in SYRINGE 0 ML IV SCH (07:58)
[2021-02-28] MEDS: MAGNESIUM OXIDE 400 MG TAB PO SCH ×2 (07:59→19:54)
[2021-02-28] MEDS: METOPROLOL TARTRATE 50 MG TAB PO SCH ×2 (07:59→19:56)
[2021-02-28] MEDS: lisinopril 5 MG TAB PO SCH (07:59)
[2021-02-28] MEDS: INSULIN ASPART PER UNIT SC SCH ×4 (09:04→20:55)
[2021-02-28] MEDS: INSULIN GLARGINE SOLOSTAR 100 UNITS/ML 3 ML PEN SC SCH ×2 (09:05→20:56)
--- NOTE | 2021-02-28 10:37 | Pharmacy Report ---
Pharmacy Glycemic Short Note 2 - Date of Service February 28, 2021 - Glycemic Short BSG Results (Last 24 hours): 02/27/21 02/27/21 02/27/21 11:52 12:24 16:40 Glucose 203 H POC Glucose 213 H 176 H 02/27/21 02/27/21 02/28/21 18:19 20:35 00:50 Glucose 291 H 159 H POC Glucose 269 H 02/28/21 07:54 Glucose POC Glucose 160 H OUTPATIENT ANTIDIABETIC REGIMEN: * Glipizide 10mg PO BID * HbA1c: 7.6% (05/24/20) -- updated A1c pending with tomorrow's AM labs ASSESSMENT: * Mr Mosquera is a 75yo diabetic male admitted with COVID-19. * Pt was started on IV dexamethasone daily, which is expected to contribute to significant steroid-induced hyperglycemia. * Pt started on SQ basal/bolus insulin regimen on admission yesterday. * Fasting BSG pretty reasonable this morning. No adjustment to Lantus today. * Novolog parameters adjusted to provide additional prandial coverage for better control throughout the day. PLAN FOR INPATIENT GLYCEMIC CONTROL: * Hold outpatient oral diabetes medications * Basal insulin * Lantus 5 units SQ BID * Bolus insulin * NovoLog per scale ACHS or Q6hrs while NPO * Goal Range: Low 110 mg/dL - High 140 mg/dL * Correction Factor: 30 mg/dL/unit * Nutritional / Prandial insulin per carb ratio of 1 unit per 7 grams CHO consumed PLAN FOR DISCHARGE: * pending updated A1c
[2021-02-28 12:50] LABS: BUN Creatinine Ratio 17.3 (10-20); Calcium 8.8 mg/dl (8.5-10.1); Creatinine Clr Calc Pharmacy 46.5 ml/min; Est GFR (African American) 49.3 ml/min; Est GFR (Non-African American) 42.5 ml/min; Potassium 4.9 mmol/L (3.5-5.1)
[2021-02-28] MEDS: ALUMINUM/MAGNESIUM SUSP 50 ML, diphenhydrAMINE Syrup 125 MG, LIDOCAINE VISCOUS 2% SOLN ... PO PRN (15:34)
--- NOTE | 2021-02-28 16:42 | Hospitalist Progress Note ---
Date of Service February 28, 2021 Assessment & Plan (1) COVID-19: (2) Pharyngitis: (3) Weakness: (4) Acute hyponatremia: Plan: ASSESSMENT AND PLAN: This is a 75-year-old male who was diagnosed with COVID- 19, who presents with severe sore throat and hyponatremia. ACUTE HYPOXIC RESPIRATORY FAILURE SECONDARY TO COVID-19 INFECTION Currently saturating 96% on 2 L of oxygen Chest x-ray bilateral pneumonia, bibasilar mostly Decadron day #2 Remdesivir day #2 Heparin for DVT prophylaxis Incentive spirometry, flutter valve Mucinex SEVERE SORE THROAT LIKELY SECONDARY TO PHARYNGITIS SECONDARY TO COVID-19 on Decadron and Ceftriaxone Tylenol as needed, Magic swizzle and tramadol as needed ACUTE HYPONATREMIA, LIKELY HYPOVOLEMIC FROM POOR INTAKE Sodium 130 Repeat every 6 hours given IV NSS repeat tomorrow ACUTE METABOLIC ENCEPHALOPATHY LIKELY SECONDARY TO COVID-19 INFECTION, HYPOXIA Resolved DIABETES TYPE 2 Glipizide held Insulin sliding scale Glycemic control consulted HYPERTENSION Continue diltiazem, lisinopril, metoprolol As needed hydralazine HISTORY OF FA[facility] MUTATION History of PE INR 2.0 Continue with Coumadin Follow-up INR HISTORY OF EDEMA On Lasix Lasix held due to dehydration HISTORY OF CKD 3 Creatinine 1.5 Baseline Monitor closely DVT prophylaxis INR 2.0 d/c heparin Disposition Pending PT and OT evaluation plan of care discussed with patient in detail and at length all questions answered he is understanding, agreeable, comfortable with the plan of care Admission and Anticipated Discharge Date Admission Date: February 27, 2021 Subjective ff up for COVID 19 infection, etc seen resting in bed, comfortable on 2 L PA states he feels improved no dyspnea, chest pain alert, oriented x 3, answers questions appropriately still has sore throat no other symptoms Review of Systems Review of Systems: all noted and negative except for above Physical Exam Physical Exam: General- oriented x 2-3, not in distress, speaks in sentences with no effort or accessory muscle use Oral- no tonsillar edema/erythema/exudates; no oral thrush Eyes- anicteric Neck- no JVD Lungs- mild rales at the bases no wheezing Heart- normal rate, regular rhythm; no murmurs Abdomen- normal bowel sounds, nondistended, soft, nontender Extremities- no pretibial edema, no calf tenderness Neuro- alert, oriented x 3; no gross focal neurologic deficits Skin- warm & dry Results & Data Results & Data ([facility]) Vital Signs (Past 12 Hours) Vital Signs Temp Pulse Pulse Resp BP BP Pulse Ox 02/28/21 16:20 36.7 C 66 16 142/68 H 96 02/28/21 11:36 36.9 C 63 16 143/72 H 93 02/28/21 08:43 36.8 C 69 16 162/80 H 96 02/28/21 08:00 79 16 162/80 H 97 all noted and reviewed including below (1) Pharyngitis Pharyngitis/tonsillitis etiology: other specified organisms Qualified Code(s): J02.8 - Acute pharyngitis due to other specified organisms
[2021-02-28] MEDS: WARFARIN SOD 5 MG TAB PO SCH (17:04)
[2021-02-28 17:34] LABS: Albumin Level 3.8 gm/dl (3.4-5.0); Bilirubin Direct 0.1 mg/dl (0-0.2); Bilirubin,Total 0.4 mg/dl (0.2-1.0); Total Protein 6.6 gm/dl (6.0-8.3)
[2021-02-28 17:49] LABS: BUN Creatinine Ratio 18.8 (10-20); Calcium 8.9 mg/dl (8.5-10.1); Creatinine Clr Calc Pharmacy 47.1 ml/min; Est GFR (African American) 50.1 ml/min; Est GFR (Non-African American) 43.2 ml/min
[2021-02-28] MEDS: REMDESIVIR 100 MG in SODIUM CHLORIDE 0.9% 230 ML IV SCH (19:53)
[2021-02-28] MEDS: allopurinoL 100 MG TAB PO SCH (19:55)
[2021-02-28] MEDS: TAMSULOSIN HCL 0.4 MG CAP PO SCH (19:56)
[2021-02-28] MEDS: ATORVASTATIN 40 MG TAB PO SCH (19:56)
[2021-03-01 00:59] LABS: BUN Creatinine Ratio 18.9 (10-20); Calcium 8.8 mg/dl (8.5-10.1); Est GFR (African American) 52.5 ml/min; Est GFR (Non-African American) 45.3 ml/min; Potassium 4.4 mmol/L (3.5-5.1)
[2021-03-01] MEDS: PANTOprazole 40 MG TAB PO SCH (06:40)
[2021-03-01 06:41] LABS: Hematocrit (blood only) 37.1 % (42-52); Hemoglobin 12.6 g/dL (14.0-18.0); Immature Granulocytes # (auto) 0.03 K/uL (0.00-0.02); Immature Granulocytes % (auto) 0.3 %; Lymphocytes # (auto) 1.07 K/uL (1.2-3.4); Lymphocytes % (auto) 9.1 %; Mean Corpuscular Hemoglobin 27.8 pg (25-34); Mean Corpuscular Volume 81.9 fL (80-100); Mean Platelet Volume 9.7 fL (7.4-10.4); Monocytes # (auto) 0.86 K/uL (0.11-0.59); Monocytes % (auto) 7.3 %; Neutrophils # (auto) 9.85 K/uL (1.4-6.5); Neutrophils % (auto) 83.3 %; Platelet Count 156 K/uL (130-400); RDW Coefficient of Variation 13.5 % (11.5-14.5); RDW Standard Deviation 40.7 fL (36.4-46.3); Red Blood Count 4.53 M/uL (4.7-6.1); White Blood Count 11.81 K/uL (4.8-10.8)
[2021-03-01 06:57] LABS: INR 2.4 (0.9-1.1); Prothrombin Time 22.9 Seconds (9.0-12.0)
[2021-03-01] MEDS: cefTRIAXone SODIUM 2,000 MG in DEXTROSE 5% 50 ML IV SCH (07:11)
[2021-03-01 07:20] LABS: Albumin Level 3.4 gm/dl (3.4-5.0); Bilirubin,Total 0.3 mg/dl (0.2-1.0); Total Protein 5.9 gm/dl (6.0-8.3)
[2021-03-01 07:33] LABS: Estimated Average Glucose 206 mg/dl; Hemoglobin A1C 8.8 % (4.5-5.6)
[2021-03-01] MEDS: dexAMETHasone 6 MG in SYRINGE 0 ML IV SCH (08:22)
[2021-03-01] MEDS: METOPROLOL TARTRATE 50 MG TAB PO SCH ×2 (08:23→20:25)
[2021-03-01] MEDS: lisinopril 5 MG TAB PO SCH (08:23)
[2021-03-01] MEDS: MAGNESIUM OXIDE 400 MG TAB PO SCH ×2 (08:23→20:26)
[2021-03-01] MEDS: INSULIN ASPART PER UNIT SC SCH ×4 (08:30→21:09)
[2021-03-01] MEDS: INSULIN HUMAN NPH SC SCH (10:16)
--- NOTE | 2021-03-01 12:19 | Pharmacy Report ---
Pharmacy Glycemic Short Note 2 - Date of Service March 01, 2021 - Glycemic Short BSG Results (Last 24 hours): 02/28/21 02/28/21 02/28/21 12:09 16:43 16:57 Glucose 204 H 204 H POC Glucose 214 H 02/28/21 03/01/21 03/01/21 19:51 00:16 08:07 Glucose 154 H POC Glucose 319 H* 161 H 03/01/21 11:52 Glucose POC Glucose 268 H OUTPATIENT ANTIDIABETIC REGIMEN: * Glipizide 10mg PO BID * HbA1c: 8/8%-03/01/21 ASSESSMENT: 03/01: * BSGs trended upward throughout the day yesterday. Patient was transitioned to NPH this morning to help with steroid induced hyperglycemia. * Lunch BSG elevated again today, however NPH was given ~1 hr late and thus might not be fully reflected with this lunch BSG. Novolog scale was tightened. Will monitor need for an increase in NPH dose. * Patient does appear to be tolerating a diet and remains on iv steroids. 02/28 * Mr Mosquera is a 75yo diabetic male admitted with COVID-19. * Pt was started on IV dexamethasone daily, which is expected to contribute to significant steroid-induced hyperglycemia. * Pt started on SQ basal/bolus insulin regimen on admission yesterday. * Fasting BSG pretty reasonable this morning. No adjustment to Lantus today. * Novolog parameters adjusted to provide additional prandial coverage for better control throughout the day. PLAN FOR INPATIENT GLYCEMIC CONTROL: * Hold outpatient oral diabetes medications * Basal insulin * NPH 20 units SC qam * Bolus insulin * NovoLog per scale ACHS or Q6hrs while NPO * Goal Range: Low 110 mg/dL - High 140 mg/dL * Correction Factor: 15 mg/dL/unit * Nutritional / Prandial insulin per carb ratio of 1 unit per 6 grams CHO consumed PLAN FOR DISCHARGE: * TBD
--- NOTE | 2021-03-01 16:55 | Hospitalist Progress Note ---
Date of Service March 01, 2021 Assessment & Plan (1) COVID-19: (2) Pharyngitis: (3) Weakness: (4) Acute hyponatremia: Plan: ASSESSMENT AND PLAN: This is a 75-year-old male who was diagnosed with COVID- 19, who presents with severe sore throat and hyponatremia. ACUTE HYPOXIC RESPIRATORY FAILURE SECONDARY TO COVID-19 INFECTION Weaned off oxygen supplementation, currently saturating 96% on room air Chest x-ray bilateral pneumonia, bibasilar mostly Decadron day #3 Remdesivir day #3 Renal and liver function stable Heparin for DVT prophylaxis Incentive spirometry, flutter valve Mucinex SEVERE SORE THROAT LIKELY SECONDARY TO PHARYNGITIS SECONDARY TO COVID-19 on Decadron and Ceftriaxone Tylenol as needed, Magic swizzle and tramadol as needed Improving ACUTE HYPONATREMIA, LIKELY HYPOVOLEMIC FROM POOR INTAKE Sodium 130 given IV NSS Improved, sodium 133 ACUTE METABOLIC ENCEPHALOPATHY LIKELY SECONDARY TO COVID-19 INFECTION, HYPOXIA Resolved DIABETES TYPE 2 Glipizide held Insulin sliding scale Glycemic control consulted HYPERTENSION Continue diltiazem, lisinopril, metoprolol As needed hydralazine HISTORY OF FACTOR [facility] MUTATION History of PE INR 2.4 Continue with Coumadin HISTORY OF EDEMA On Lasix Lasix held due to dehydration No leg edema HISTORY OF CKD 3 Creatinine 1.48 Baseline Monitor closely DVT prophylaxis INR 2.4 Disposition Pending PT and OT evaluation plan of care discussed with patient in detail and at length all questions answered he is understanding, agreeable, comfortable with the plan of care Admission and Anticipated Discharge Date Admission Date: February 27, 2021 Subjective Follow-up for COVID-19, acute hypoxic respiratory failure, etc. Seen resting in bed, on room air, comfortable Not in distress Conversant States he feels improved today No shortness of breath, chest pain, palpitations, dizziness Sore throat improving Would like to advance diet No other symptoms Review of Systems Review of Systems: all noted and negative except for above Physical Exam Physical Exam: General- oriented x 3, not in distress, speaks in sentences with no effort or accessory muscle use Eyes- anicteric Neck- no JVD Lungs- clear BS BL Heart- normal rate, regular rhythm; no murmurs Abdomen- normal bowel sounds, nondistended, soft, nontender Extremities- no pretibial edema, no calf tenderness Neuro- alert, oriented x 3; no gross focal neurologic deficits Skin- warm & dry Results & Data Results & Data ([facility]) Vital Signs (Past 12 Hours) Vital Signs Temp Pulse Pulse Resp BP Pulse Ox 03/01/21 15:31 61 03/01/21 15:30 36.9 C 58 L 19 144/68 H 96 03/01/21 13:00 95 03/01/21 11:53 36.9 C 58 L 19 143/99 H 94 03/01/21 09:00 96 03/01/21 08:09 36.8 C 71 19 167/73 H 96 03/01/21 08:00 54 L 03/01/21 05:00 69 16 93 all noted and reviewed including below (1) Pharyngitis Pharyngitis/tonsillitis etiology: other specified organisms Qualified Code(s): J02.8 - Acute pharyngitis due to other specified organisms
[2021-03-01] MEDS: WARFARIN SOD 10 MG TAB PO SCH (17:16)
[2021-03-01] MEDS: REMDESIVIR 100 MG in SODIUM CHLORIDE 0.9% 230 ML IV SCH (20:25)
[2021-03-01] MEDS: ATORVASTATIN 40 MG TAB PO SCH (20:25)
[2021-03-01] MEDS: TAMSULOSIN HCL 0.4 MG CAP PO SCH (20:26)
[2021-03-01] MEDS: allopurinoL 100 MG TAB PO SCH (20:27)
[2021-03-02] MEDS: PANTOprazole 40 MG TAB PO SCH (06:07)
[2021-03-02 06:29] LABS: Prothrombin Time 27.8 Seconds (9.0-12.0)
[2021-03-02 06:52] LABS: Albumin Level 3.3 gm/dl (3.4-5.0); Bilirubin Direct 0.1 mg/dl (0-0.2); Bilirubin,Total 0.3 mg/dl (0.2-1.0); Total Protein 5.6 gm/dl (6.0-8.3)
[2021-03-02] MEDS: cefTRIAXone SODIUM 2,000 MG in DEXTROSE 5% 50 ML IV SCH (08:38)
[2021-03-02] MEDS: lisinopril 5 MG TAB PO SCH (08:39)
[2021-03-02] MEDS: dexAMETHasone 6 MG in SYRINGE 0 ML IV SCH (08:39)
[2021-03-02] MEDS: MAGNESIUM OXIDE 400 MG TAB PO SCH ×2 (08:40→19:59)
[2021-03-02] MEDS: METOPROLOL TARTRATE 50 MG TAB PO SCH ×2 (08:40→19:59)
[2021-03-02] MEDS: INSULIN HUMAN NPH SC SCH (08:50)
[2021-03-02] MEDS: INSULIN ASPART PER UNIT SC SCH ×4 (08:50→20:15)
[2021-03-02] MEDS ORDERED: INSULIN HUMAN NPH SC ONE (11:30)
[2021-03-02 11:34] LABS: BUN Creatinine Ratio 20.9 (10-20); Calcium 8.9 mg/dl (8.5-10.1); Creatinine Clr Calc Pharmacy 48.5 ml/min; Est GFR (African American) 52.5 ml/min; Est GFR (Non-African American) 45.3 ml/min; Potassium 4.6 mmol/L (3.5-5.1)
--- NOTE | 2021-03-02 11:42 | Pharmacy Report ---
Pharmacy Glycemic Short Note 2 - Date of Service March 02, 2021 - Glycemic Short BSG Results (Last 24 hours): 03/01/21 03/01/21 03/01/21 11:52 16:21 20:22 Glucose POC Glucose 268 H 117 H 208 H 03/02/21 03/02/21 08:06 10:28 Glucose 239 H POC Glucose 182 H OUTPATIENT ANTIDIABETIC REGIMEN: * Glipizide 10mg PO BID * HbA1c: 8/8%-03/01/21 ASSESSMENT: 03/02: * Stressors stable * AM fasting elevated >180 mg/dL despite increase in basal insulin yesterday. Will increase again today and add an overnight check * No change to Novolog for now - only two post-prandial BSG's yesterday after the change, one of which was in range 03/01: * BSGs trended upward throughout the day yesterday. Patient was transitioned to NPH this morning to help with steroid induced hyperglycemia. * Lunch BSG elevated again today, however NPH was given ~1 hr late and thus might not be fully reflected with this lunch BSG. Novolog scale was tightened. Will monitor need for an increase in NPH dose. * Patient does appear to be tolerating a diet and remains on iv steroids. 02/28 * Mr Mosquera is a 75yo diabetic male admitted with COVID-19. * Pt was started on IV dexamethasone daily, which is expected to contribute to significant steroid-induced hyperglycemia. * Pt started on SQ basal/bolus insulin regimen on admission yesterday. * Fasting BSG pretty reasonable this morning. No adjustment to Lantus today. * Novolog parameters adjusted to provide additional prandial coverage for better control throughout the day. PLAN FOR INPATIENT GLYCEMIC CONTROL: * Hold outpatient glipizide * Basal insulin * NPH 30 units SC this AM (total). Ongoing qAM per BSG, ranging 20-40 units. * Bolus insulin * NovoLog per scale ACHS or Q6hrs while NPO * Goal Range: Low 110 mg/dL - High 140 mg/dL * Correction Factor: 15 mg/dL/unit * Nutritional / Prandial insulin per carb ratio of 1 unit per 6 grams CHO consumed PLAN FOR DISCHARGE: * TBD
--- NOTE | 2021-03-02 12:48 | Hospitalist Progress Note ---
Date of Service March 02, 2021 Assessment & Plan (1) COVID-19: (2) Pharyngitis: (3) Weakness: (4) Acute hyponatremia: Plan: ASSESSMENT AND PLAN: This is a 75-year-old male who was diagnosed with COVID- 19, who presents with severe sore throat and hyponatremia. ACUTE HYPOXIC RESPIRATORY FAILURE SECONDARY TO COVID-19 INFECTION Secondary of being weaned off oxygen supplementation, currently saturating 96% on room air Chest x-ray bilateral pneumonia, bibasilar mostly Decadron day #4 Remdesivir day #4/5 Renal and liver function stable Heparin for DVT prophylaxis Incentive spirometry, flutter valve Mucinex Anticipate discharge to home in 1 to 2 days to complete oral Decadron course at home, continue incentive spirometry, flutter valve, Mucinex at home as well SEVERE SORE THROAT LIKELY SECONDARY TO PHARYNGITIS SECONDARY TO COVID-19 on Decadron and Ceftriaxone Tylenol as needed, Magic swizzle and tramadol as needed Resolving ACUTE HYPONATREMIA, LIKELY HYPOVOLEMIC FROM POOR INTAKE Sodium 130 given IV NSS Improved, sodium 133 ACUTE METABOLIC ENCEPHALOPATHY LIKELY SECONDARY TO COVID-19 INFECTION, HYPOXIA Resolved DIABETES TYPE 2 Glipizide held Insulin sliding scale Glycemic control consulted HYPERTENSION Continue diltiazem, lisinopril, metoprolol As needed hydralazine HISTORY OF FA[employer] [facility] MUTATION History of PE INR 3.0 INR trending up Hold Coumadin today Check INR tomorrow and resume Coumadin accordingly HISTORY OF EDEMA On Lasix Lasix held due to dehydration No leg edema HISTORY OF CKD 3 Creatinine 1.48 Baseline Monitor closely DVT prophylaxis INR 3.0 Coumadin held today Disposition Pending Usually lives at home PT and OT evaluation Will need two-step exercise test on the day of discharge plan of care discussed with patient in detail and at length all questions answered he is understanding, agreeable, comfortable with the plan of care Admission and Anticipated Discharge Date Admission Date: February 27, 2021 Subjective Follow-up for COVID-19 infection, pneumonia, acute hypoxic respiratory failure, etc. Seen resting in bed, sitting up, on room air, not in distress, comfortable States he continues to feel improved Breathing is better, less cough Sore throat also improving No dysphagia No chest pain, palpitations, dizziness, nausea vomiting abdominal pain, leg pain No other symptoms Review of Systems Review of Systems: all noted and negative except for above Physical Exam Physical Exam: General- oriented x 3, not in distress, speaks in sentences with no effort or accessory muscle use Eyes- anicteric Neck- no JVD Lungs-mild rales at the bases, no wheezing, good air entry bilaterally Heart- normal rate, regular rhythm; no murmurs Abdomen- normal bowel sounds, nondistended, soft, nontender Extremities- no pretibial edema, no calf tenderness Neuro- alert, oriented x 3; no gross focal neurologic deficits Skin- warm & dry Results & Data Results & Data ([facility]) Vital Signs (Past 12 Hours) Vital Signs Temp Pulse Pulse Resp BP Pulse Ox 03/02/21 11:51 36.9 C 72 19 145/82 H 93 03/02/21 09:15 36.9 C 76 18 170/80 H 96 03/02/21 08:00 52 L 03/02/21 06:00 36.8 C 51 L 64 16 164/93 H 94 03/02/21 05:00 49 L 16 92 03/02/21 04:00 48 L 15 96 03/02/21 03:00 57 L 16 94 03/02/21 02:00 42 L 19 95 03/02/21 01:00 44 L 0 L 95 all noted and reviewed including below (1) Pharyngitis Pharyngitis/tonsillitis etiology: other specified organisms Qualified Code(s): J02.8 - Acute pharyngitis due to other specified organisms
[2021-03-02] MEDS: REMDESIVIR 100 MG in SODIUM CHLORIDE 0.9% 230 ML IV SCH (19:56)
[2021-03-02] MEDS: allopurinoL 100 MG TAB PO SCH (19:58)
[2021-03-02] MEDS: TAMSULOSIN HCL 0.4 MG CAP PO SCH (19:59)
[2021-03-02] MEDS: ATORVASTATIN 40 MG TAB PO SCH (19:59)
[2021-03-03] MEDS ORDERED: INSULIN ASPART PER UNIT SC ONE (02:00)
[2021-03-03 06:31] LABS: INR 3.6 (0.9-1.1); Prothrombin Time 32.9 Seconds (9.0-12.0)
[2021-03-03 06:33] LABS: Albumin Level 3.3 gm/dl (3.4-5.0); BUN Creatinine Ratio 22.2 (10-20); Bilirubin,Total 0.3 mg/dl (0.2-1.0); Calcium 8.7 mg/dl (8.5-10.1); Creatinine Clr Calc Pharmacy 46.9 ml/min; Est GFR (African American) 50.4 ml/min; Est GFR (Non-African American) 43.5 ml/min; Potassium 4.7 mmol/L (3.5-5.1); Total Protein 5.7 gm/dl (6.0-8.3)
[2021-03-03] MEDS: PANTOprazole 40 MG TAB PO SCH (06:48)
[2021-03-03] MEDS: cefTRIAXone SODIUM 2,000 MG in DEXTROSE 5% 50 ML IV SCH (08:01)
[2021-03-03] MEDS: lisinopril 5 MG TAB PO SCH (08:06)
[2021-03-03] MEDS: MAGNESIUM OXIDE 400 MG TAB PO SCH ×2 (08:07→20:17)
[2021-03-03] MEDS: dexAMETHasone 6 MG in SYRINGE 0 ML IV SCH (08:34)
[2021-03-03] MEDS: METOPROLOL TARTRATE 50 MG TAB PO SCH ×2 (08:34→20:17)
[2021-03-03] MEDS: INSULIN ASPART PER UNIT SC SCH ×4 (08:42→21:25)
[2021-03-03] MEDS: INSULIN HUMAN NPH SC SCH (08:44)
[2021-03-03] MEDS: hydrALAZINE HCL 20 MG/ML VIAL IV PRN ×2 (16:58→20:23)
[2021-03-03] MEDS ORDERED: CHLORASEPTIC 1.4% SOLN 180 ML BTL MT PRN (18:13)
--- NOTE | 2021-03-03 18:23 | Hospitalist Progress Note ---
Date of Service March 03, 2021 Assessment & Plan (1) COVID-19: (2) Pharyngitis: (3) Weakness: (4) Acute hyponatremia: Plan: ASSESSMENT AND PLAN: This is a 75-year-old male who was diagnosed with COVID- 19, who presents with severe sore throat and hyponatremia. ACUTE HYPOXIC RESPIRATORY FAILURE SECONDARY TO COVID-19 INFECTION Sore throat Secondary of being weaned off oxygen supplementation, currently saturating 96% on room air Chest x-ray bilateral pneumonia, bibasilar mostly Decadron day #5 Will complete course of Remdesivir today Saturated well on RA Continue Incentive spirometry and flutter valve Will add guaifenesin SEVERE SORE THROAT LIKELY SECONDARY TO PHARYNGITIS SECONDARY TO COVID-19 on Decadron and Ceftriaxone Tylenol as needed, Magic swizzle and tramadol as needed Chloraseptic spray adding Clinically improves ACUTE HYPONATREMIA, LIKELY HYPOVOLEMIC FROM POOR INTAKE Sodium 130 on admission given IV NSS Improved, sodium 134 ACUTE METABOLIC ENCEPHALOPATHY LIKELY SECONDARY TO COVID-19 INFECTION, HYPOXIA Resolved DIABETES TYPE 2 Hba1c 8.8 Glipizide on hold during the hospital course Insulin sliding scale Pharmacy on board for glycemic management Continue monitor BS HYPERTENSION Continue diltiazem, lisinopril, metoprolol BP stable As needed hydralazine HISTORY OF FA[employer] [facility] MUTATION History of PE INR 3.6 INR trending up Hold Coumadin today Check INR tomorrow and resume Coumadin accordingly HISTORY OF EDEMA On Lasix Lasix held due to dehydration No leg edema HISTORY OF CKD 3 Creatinine 1.5 today, Creatinine baseline 1.6 to 1.8 Monitor closely Stable DVT prophylaxis INR 3.6 Continue to hold coumadin Disposition will discharge once medically stable Admission and Anticipated Discharge Date Admission Date: February 27, 2021 Subjective Pt was seen and examined for follow up sore throat, pneumonia due to COVID-19 infection Lying in bed with no acute distress watching TV Pt said that his sore throat improved He denies any difficulty to swallow Denies any chest pain, palpitation, dizziness and SOB Review of Systems Review of Systems: All systems reviewed & are unremarkable except as noted in Subjective Physical Exam Physical Exam: General- No acute distress Head- atraumatic Eyes- PERRL, EOMI, ENT- oropharynx clear Neck- supple, no JVD Lungs- clear to auscultation Heart- regular rhythm; no murmur Abdomen- normal bowel sounds, soft, nontender Extremities- no calf tenderness Neuro- alert, oriented x 3; PERRL, EOMI; no facial palsy; no dysarthria Skin- warm & dry Results & Data Results & Data ([facility]) Vital Signs (Past 12 Hours) Vital Signs Temp Pulse Pulse Resp BP Pulse Ox 03/03/21 17:26 87 162/91 H 100 03/03/21 17:11 175/79 H 98 03/03/21 14:57 36.8 C 44 L 16 176/88 H 95 03/03/21 11:31 37.0 C 61 15 171/80 H 94 03/03/21 08:04 54 L 152/81 H 03/03/21 07:55 36.9 C 60 20 170/84 H 96 03/03/21 06:19 44 L (1) Pharyngitis Pharyngitis/tonsillitis etiology: other specified organisms Qualified Code(s): J02.8 - Acute pharyngitis due to other specified organisms
[2021-03-03] MEDS: REMDESIVIR 100 MG in SODIUM CHLORIDE 0.9% 230 ML IV SCH (19:15)
[2021-03-03] MEDS: guaiFENesin 200 MG TAB PO SCH ×2 (19:17→23:45)
[2021-03-03] MEDS: ATORVASTATIN 40 MG TAB PO SCH (20:17)
[2021-03-03] MEDS: allopurinoL 100 MG TAB PO SCH (20:17)
[2021-03-03] MEDS: TAMSULOSIN HCL 0.4 MG CAP PO SCH (20:17)
--- NOTE | 2021-03-03 23:42 | Communication Note ---
Date of Service: March 03, 2021 Made aware by RN of uncontrolled blood pressure. SBP 1 40-1 80s the last 24 hours. Cardiac rate 60s. Patient asymptomatic as per RN. AP Hypertensive urgency Add Amlodipine to regimen. Will relay to AM provider.
[2021-03-04] MEDS: amLODIPine BESYLATE 5 MG TAB PO SCH ×2 (01:00→23:15)
[2021-03-04] MEDS: PANTOprazole 40 MG TAB PO SCH (06:21)
[2021-03-04] MEDS: guaiFENesin 200 MG TAB PO SCH ×4 (06:21→23:14)
[2021-03-04] MEDS: cefTRIAXone SODIUM 2,000 MG in DEXTROSE 5% 50 ML IV SCH (06:22)
[2021-03-04 07:50] LABS: INR 2.2 (0.9-1.1); Prothrombin Time 20.9 Seconds (9.0-12.0)
[2021-03-04] MEDS: INSULIN ASPART PER UNIT SC SCH ×4 (08:00→23:18)
[2021-03-04] MEDS: METOPROLOL TARTRATE 50 MG TAB PO SCH ×2 (08:07→23:15)
[2021-03-04] MEDS: dexAMETHasone 6 MG in SYRINGE 0 ML IV SCH (08:07)
[2021-03-04] MEDS: lisinopril 5 MG TAB PO SCH (08:07)
[2021-03-04] MEDS: MAGNESIUM OXIDE 400 MG TAB PO SCH ×2 (08:07→23:15)
[2021-03-04 08:12] LABS: Albumin Level 3.6 gm/dl (3.4-5.0); BUN Creatinine Ratio 24.1 (10-20); Bilirubin,Total 0.4 mg/dl (0.2-1.0); Creatinine Clr Calc Pharmacy 49.7 ml/min; Est GFR (African American) 53.8 ml/min; Est GFR (Non-African American) 46.4 ml/min; Potassium 4.6 mmol/L (3.5-5.1); Total Protein 6.1 gm/dl (6.0-8.3)
[2021-03-04] MEDS: INSULIN HUMAN NPH SC SCH (09:14)
[2021-03-04] MEDS ORDERED: INSULIN ASPART PER UNIT SC SCH ×2 (11:30)
[2021-03-04] MEDS ORDERED: INSULIN HUMAN NPH SC ONE (12:00)
--- NOTE | 2021-03-04 12:04 | Pharmacy Report ---
Pharmacy Glycemic Short Note 2 - Date of Service March 04, 2021 - Glycemic Short BSG Results (Last 24 hours): 03/03/21 03/03/21 03/04/21 16:37 20:37 07:11 Glucose 153 H POC Glucose 156 H 179 H 03/04/21 03/04/21 07:57 11:29 Glucose POC Glucose 145 H 264 H OUTPATIENT ANTIDIABETIC REGIMEN: * Glipizide 10mg PO BID * HbA1c: 8/8%-03/01/21 ASSESSMENT: 03/04: * Fasting BSG near goal at 145mg/dL this AM. Lunchtime check today up to 264mg/dL. Stressors stable. Type 2 diet ordered. * Will further tighten AC Novolog correction today. Patient received NPH 30units this AM. Will give an additional 10 units now for TDD 40 units. Overnight checks added. 03/02: * Stressors stable * AM fasting elevated >180 mg/dL despite increase in basal insulin yesterday. Will increase again today and add an overnight check * No change to Novolog for now - only two post-prandial BSG's yesterday after the change, one of which was in range 03/01: * BSGs trended upward throughout the day yesterday. Patient was transitioned to NPH this morning to help with steroid induced hyperglycemia. * Lunch BSG elevated again today, however NPH was given ~1 hr late and thus might not be fully reflected with this lunch BSG. Novolog scale was tightened. Will monitor need for an increase in NPH dose. * Patient does appear to be tolerating a diet and remains on iv steroids. 02/28 * Mr Mosquera is a 75yo diabetic male admitted with COVID-19. * Pt was started on IV dexamethasone daily, which is expected to contribute to significant steroid-induced hyperglycemia. * Pt started on SQ basal/bolus insulin regimen on admission yesterday. * Fasting BSG pretty reasonable this morning. No adjustment to Lantus today. * Novolog parameters adjusted to provide additional prandial coverage for better control throughout the day. PLAN FOR INPATIENT GLYCEMIC CONTROL: * Hold outpatient glipizide * Basal insulin * NPH 40 units SC this AM (total) * Bolus insulin * NovoLog per scale ACHS or Q6hrs while NPO * Goal Range: Low 110 mg/dL - High 140 mg/dL * Correction Factor: 12 mg/dL/unit * Nutritional / Prandial insulin per carb ratio of 1 unit per 5 grams CHO consumed PLAN FOR DISCHARGE: * TBD
--- NOTE | 2021-03-04 16:33 | Hospitalist Progress Note ---
Date of Service March 04, 2021 Assessment & Plan (1) COVID-19: (2) Pharyngitis: (3) Weakness: (4) Acute hyponatremia: Plan: ASSESSMENT AND PLAN: This is a 75-year-old male who was diagnosed with COVID- 19, who presents with severe sore throat and hyponatremia. ACUTE HYPOXIC RESPIRATORY FAILURE SECONDARY TO COVID-19 INFECTION Sore throat Secondary of being weaned off oxygen supplementation, currently saturating 96% on room air Chest x-ray bilateral pneumonia, bibasilar mostly Decadron day #6 Will complete course of Remdesivir today Saturated well on RA Continue Incentive spirometry and flutter valve Will add guaifenesin SEVERE SORE THROAT LIKELY SECONDARY TO PHARYNGITIS SECONDARY TO COVID-19 Continue Decadron and Ceftriaxone Tylenol as needed, Magic swizzle, Chloraseptic and tramadol as needed Clinically improves ACUTE HYPONATREMIA, LIKELY HYPOVOLEMIC FROM POOR INTAKE Sodium 130 on admission received IVF and K 133 today ACUTE METABOLIC ENCEPHALOPATHY LIKELY SECONDARY TO COVID-19 INFECTION, HYPOXIA Resolved DIABETES TYPE 2 Hba1c 8.8 Glipizide on hold during the hospital course Insulin sliding scale Pharmacy on board for glycemic management Continue monitor BS HYPERTENSION Continue diltiazem, lisinopril, metoprolol BP stable As needed hydralazine HISTORY OF FA[employer] [facility] [employer] MUTATION History of PE INR 2.2 today Will resume Coumadin Continue monitor coumadin HISTORY OF EDEMA On Lasix Lasix held due to dehydration Will resume lasix in am No leg edema HISTORY OF CKD 3 Creatinine 1.5 today, Creatinine baseline 1.6 to 1.8 Monitor closely Stable DVT prophylaxis INR 2.2 Coumadin resumed Disposition Possible discharge tomorrow Admission and Anticipated Discharge Date Admission Date: February 27, 2021 Subjective Pt was seen and examined for follow up sore throat, pneumonia due to COVID-19 infection Sitting at the edge of the bed with no acute distress talking in his cell phone Pt said that he continue to have sore throat, but it seems to improve compare to when he came He has been talking alot that causes irritation of his throat He is worried because his tested positive for covid 19 at home, but she has mild symptoms He said that he continues to cough and started to bring phlegm up Denies any chest pain, palpitation, dizziness and SOB Review of Systems Review of Systems: All systems reviewed & are unremarkable except as noted in Subjective Physical Exam Physical Exam: General- No acute distress Head- atraumatic Eyes- PERRL, EOMI, ENT- oropharynx clear Neck- supple, no JVD Lungs- clear to auscultation Heart- regular rhythm; no murmur Abdomen- normal bowel sounds, soft, nontender Extremities- no calf tenderness Neuro- alert, oriented x 3; PERRL, EOMI; no facial palsy; no dysarthria Skin- warm & dry Results & Data Results & Data ([facility]) Vital Signs (Past 12 Hours) Vital Signs Temp Pulse Resp BP Pulse Ox 03/04/21 15:50 37.4 C 58 L 18 140/65 96 03/04/21 11:30 37.3 C 70 18 140/68 96 03/04/21 07:59 36.9 C 71 19 161/95 H 95 (1) Pharyngitis Pharyngitis/tonsillitis etiology: other specified organisms Qualified Code(s): J02.8 - Acute pharyngitis due to other specified organisms
[2021-03-04] MEDS ORDERED: WARFARIN SOD 5 MG TAB PO ONE (16:38)
[2021-03-04] MEDS: ATORVASTATIN 40 MG TAB PO SCH (23:14)
[2021-03-04] MEDS: allopurinoL 100 MG TAB PO SCH (23:14)
[2021-03-04] MEDS: TAMSULOSIN HCL 0.4 MG CAP PO SCH (23:15)
[2021-03-05] MEDS: INSULIN ASPART PER UNIT SC SCH ×7 (03:55→23:50)
[2021-03-05] MEDS: PANTOprazole 40 MG TAB PO SCH (05:37)
[2021-03-05] MEDS: guaiFENesin 200 MG TAB PO SCH ×3 (05:37→17:30)
[2021-03-05 07:56] LABS: INR 1.8 (0.9-1.1); Prothrombin Time 17.2 Seconds (9.0-12.0)
[2021-03-05] MEDS: cefTRIAXone SODIUM 2,000 MG in DEXTROSE 5% 50 ML IV SCH (08:05)
[2021-03-05 08:18] LABS: Albumin Level 3.6 gm/dl (3.4-5.0); BUN Creatinine Ratio 26.2 (10-20); Bilirubin Direct 0.1 mg/dl (0-0.2); Bilirubin,Total 0.6 mg/dl (0.2-1.0); Calcium 9.2 mg/dl (8.5-10.1); Creatinine Clr Calc Pharmacy 43.9 ml/min; Est GFR (African American) 46.4 ml/min; Potassium 4.8 mmol/L (3.5-5.1); Total Protein 6.1 gm/dl (6.0-8.3)
[2021-03-05] MEDS: dexAMETHasone 6 MG in SYRINGE 0 ML IV SCH (08:43)
[2021-03-05] MEDS: FUROSEMIDE 20 MG TAB PO SCH (08:44)
[2021-03-05] MEDS: METOPROLOL TARTRATE 50 MG TAB PO SCH ×2 (08:48→21:27)
[2021-03-05] MEDS: MAGNESIUM OXIDE 400 MG TAB PO SCH ×2 (08:48→21:27)
[2021-03-05] MEDS ORDERED: INSULIN HUMAN NPH SC SCH ×2 (09:00)
[2021-03-05] MEDS: lisinopril 10 MG TAB PO SCH (10:24)
[2021-03-05] MEDS: WARFARIN SOD 10 MG TAB PO SCH (17:30)
--- NOTE | 2021-03-05 21:05 | Hospitalist Progress Note ---
Date of Service March 05, 2021 Assessment & Plan (1) COVID-19: (2) Pharyngitis: (3) Weakness: (4) Acute hyponatremia: Plan: ASSESSMENT AND PLAN: This is a 75-year-old male who was diagnosed with COVID- 19, who presents with severe sore throat and hyponatremia. ACUTE HYPOXIC RESPIRATORY FAILURE SECONDARY TO COVID-19 INFECTION Sore throat Secondary of being weaned off oxygen supplementation, currently saturating 96% on room air Chest x-ray bilateral pneumonia, bibasilar mostly Decadron day #7 Completed the course of Remdesivir Saturated well on RA Continue Incentive spirometry and flutter valve 2 step done today and pt does not require any oxygen supplement Continue guaifenesin SEVERE SORE THROAT LIKELY SECONDARY TO PHARYNGITIS SECONDARY TO COVID-19 Continue Decadron and Ceftriaxone Tylenol as needed, Magic swizzle, Chloraseptic and tramadol as needed Continue monitor ACUTE HYPONATREMIA, LIKELY HYPOVOLEMIC FROM POOR INTAKE Sodium 130 on admission received IVF and K 130 today ACUTE METABOLIC ENCEPHALOPATHY LIKELY SECONDARY TO COVID-19 INFECTION, HYPOXIA Resolved DIABETES TYPE 2 Hba1c 8.8 Glipizide on hold during the hospital course Insulin sliding scale Pharmacy on board for glycemic management Continue monitor BS HYPERTENSION Continue diltiazem, lisinopril, metoprolol BP stable As needed hydralazine HISTORY OF FACTOR V [facility] MUTATION History of PE INR 1.8 today Will resume Coumadin Continue monitor coumadin HISTORY OF EDEMA On Lasix Lasix held due to dehydration Will resume lasix in am No leg edema HISTORY OF CKD 3 Creatinine 1.6 today, Creatinine baseline 1.6 to 1.8 Monitor closely Stable DVT prophylaxis INR 1.8 continue Coumadin Disposition Possible discharge tomorrow Admission and Anticipated Discharge Date Admission Date: February 27, 2021 Subjective Pt was seen and examined for follow up sore throat, pneumonia due to COVID-19 infection Lying in bed with no acute distress watching TV Pt said that his sore throat seems to get worst today He has a 2 step done today and he does not require any oxygen supplement Denies any chest pain, palpitation, dizziness and SOB Review of Systems Review of Systems: All systems reviewed & are unremarkable except as noted in Subjective Physical Exam Physical Exam: General- No acute distress Head- atraumatic Eyes- PERRL, EOMI, ENT- oropharynx clear, uvula midline with no pus and swelling Neck- supple, no JVD Lungs- clear to auscultation Heart- regular rhythm; no murmur Abdomen- normal bowel sounds, soft, nontender Extremities- no calf tenderness Neuro- alert, oriented x 3; PERRL, EOMI; no facial palsy; no dysarthria Skin- warm & dry Results & Data Results & Data ([facility]) Vital Signs (Past 12 Hours) Vital Signs Temp Pulse Pulse Pulse Pulse Pulse Resp 03/05/21 20:55 62 16 03/05/21 20:52 37 C 03/05/21 16:45 37.0 C 58 L 20 03/05/21 13:33 36.9 C 62 20 03/05/21 11:56 85 76 74 Resp Resp Resp BP Pulse Ox Pulse Ox Pulse Ox 03/05/21 20:55 98 03/05/21 20:52 145/56 H 03/05/21 16:45 131/55 L 93 03/05/21 13:33 141/62 H 93 03/05/21 11:56 20 20 20 94 95 Pulse Ox 03/05/21 20:55 03/05/21 20:52 03/05/21 16:45 03/05/21 13:33 03/05/21 11:56 96 (1) Pharyngitis Pharyngitis/tonsillitis etiology: other specified organisms Qualified Code(s): J02.8 - Acute pharyngitis due to other specified organisms
[2021-03-05] MEDS: allopurinoL 100 MG TAB PO SCH (21:23)
[2021-03-05] MEDS: TAMSULOSIN HCL 0.4 MG CAP PO SCH (21:23)
[2021-03-05] MEDS: amLODIPine BESYLATE 5 MG TAB PO SCH (21:24)
[2021-03-05] MEDS: ATORVASTATIN 40 MG TAB PO SCH (21:28)
[2021-03-06] MEDS: guaiFENesin 200 MG TAB PO SCH ×5 (00:09→23:39)
[2021-03-06] MEDS: INSULIN ASPART PER UNIT SC SCH ×6 (03:33→21:18)
[2021-03-06] MEDS: PANTOprazole 40 MG TAB PO SCH (06:07)
[2021-03-06 07:35] LABS: INR 2.1 (0.9-1.1); Prothrombin Time 19.7 Seconds (9.0-12.0)
[2021-03-06 07:52] LABS: Calcium 8.9 mg/dl (8.5-10.1); Creatinine Clr Calc Pharmacy 40.6 ml/min; Est GFR (African American) 42.6 ml/min; Est GFR (Non-African American) 36.7 ml/min; Potassium 4.9 mmol/L (3.5-5.1)
[2021-03-06] MEDS: cefTRIAXone SODIUM 2,000 MG in DEXTROSE 5% 50 ML IV SCH (08:22)
[2021-03-06] MEDS: dexAMETHasone 6 MG in SYRINGE 0 ML IV SCH (08:24)
[2021-03-06] MEDS: FUROSEMIDE 20 MG TAB PO SCH (08:25)
[2021-03-06] MEDS: MAGNESIUM OXIDE 400 MG TAB PO SCH ×2 (08:25→21:09)
[2021-03-06] MEDS: METOPROLOL TARTRATE 50 MG TAB PO SCH ×2 (08:25→21:00)
[2021-03-06] MEDS: lisinopril 10 MG TAB PO SCH (08:26)
[2021-03-06] MEDS: INSULIN HUMAN NPH SC SCH (08:31)
--- NOTE | 2021-03-06 17:00 | Hospitalist Progress Note ---
Date of Service March 06, 2021 Assessment & Plan (1) COVID-19: (2) Pharyngitis: (3) Weakness: (4) Acute hyponatremia: Plan: ASSESSMENT AND PLAN: This is a 75-year-old male who was diagnosed with COVID- 19, who presents with severe sore throat and hyponatremia. ACUTE HYPOXIC RESPIRATORY FAILURE SECONDARY TO COVID-19 INFECTION Sore throat Secondary of being weaned off oxygen supplementation, currently saturating 96% on room air Chest x-ray bilateral pneumonia, bibasilar mostly Decadron day #8 Completed the course of Remdesivir Saturated well on RA Continue Incentive spirometry and flutter valve 2 step done and pt does not require any oxygen supplement Continue guaifenesin SEVERE SORE THROAT LIKELY SECONDARY TO PHARYNGITIS SECONDARY TO COVID-19 Continue Decadron and Ceftriaxone Tylenol as needed, Magic swizzle, Chloraseptic and tramadol as needed Continue monitor ACUTE HYPONATREMIA, LIKELY HYPOVOLEMIC FROM POOR INTAKE Sodium 130 on admission received IVF and K 132 today ACUTE METABOLIC ENCEPHALOPATHY LIKELY SECONDARY TO COVID-19 INFECTION, HYPOXIA Resolved DIABETES TYPE 2 Hba1c 8.8 Glipizide on hold during the hospital course Insulin sliding scale Pharmacy on board for glycemic management Continue monitor BS HYPERTENSION Continue diltiazem, lisinopril, metoprolol BP stable As needed hydralazine HISTORY OF FACTOR V [facility] MUTATION History of PE INR 1.7 today Continue Coumadin Continue monitor coumadin HISTORY OF EDEMA Lasix was held due to dehydration Continue lasix daily No leg edema HISTORY OF CKD 3 Creatinine 1.7 today, Creatinine baseline 1.6 to 1.8 Monitor closely Stable DVT prophylaxis INR 2.1 continue Coumadin Disposition Possible discharge tomorrow Admission and Anticipated Discharge Date Admission Date: February 27, 2021 Subjective Pt was seen and examined for follow up sore throat, pneumonia due to COVID-19 infection Lying in bed with no acute distress Pt said that sore throat improves compare to yesterday He said that he is feeling much better today Denies any chest pain, palpitation, dizziness and SOB Review of Systems Review of Systems: All systems reviewed & are unremarkable except as noted in Subjective Physical Exam Physical Exam: General- No acute distress Head- atraumatic Eyes- PERRL, EOMI, ENT- oropharynx clear, uvula midline with no pus and swelling Neck- supple, no JVD Lungs- clear to auscultation Heart- regular rhythm; no murmur Abdomen- normal bowel sounds, soft, nontender Extremities- no calf tenderness Neuro- alert, oriented x 3; PERRL, EOMI; no facial palsy; no dysarthria Skin- warm & dry Results & Data Results & Data ([facility]) Vital Signs (Past 12 Hours) Vital Signs Temp Pulse Pulse Resp BP BP Pulse Ox 03/06/21 16:00 36.8 C 59 L 18 134/60 95 03/06/21 15:00 57 L 16 03/06/21 14:00 61 16 03/06/21 13:00 66 22 03/06/21 12:00 65 20 03/06/21 11:59 36.8 C 67 17 129/63 96 03/06/21 11:49 66 14 129/63 03/06/21 10:00 0 L 03/06/21 08:21 80 23 129/77 96 03/06/21 08:00 36.8 C 75 15 94 03/06/21 07:00 67 27 H 92 (1) Pharyngitis Pharyngitis/tonsillitis etiology: other specified organisms Qualified Code(s): J02.8 - Acute pharyngitis due to other specified organisms
[2021-03-06] MEDS: WARFARIN SOD 10 MG TAB PO SCH (17:35)
[2021-03-06] MEDS: ATORVASTATIN 40 MG TAB PO SCH (21:09)
[2021-03-06] MEDS: allopurinoL 100 MG TAB PO SCH (21:09)
[2021-03-06] MEDS: TAMSULOSIN HCL 0.4 MG CAP PO SCH (21:10)
[2021-03-06] MEDS: amLODIPine BESYLATE 5 MG TAB PO SCH (21:10)
[2021-03-07] MEDS: guaiFENesin 200 MG TAB PO SCH ×2 (06:11→12:48)
[2021-03-07] MEDS: PANTOprazole 40 MG TAB PO SCH (06:12)
[2021-03-07] MEDS: cefTRIAXone SODIUM 2,000 MG in DEXTROSE 5% 50 ML IV SCH (08:18)
[2021-03-07] MEDS: dexAMETHasone 6 MG in SYRINGE 0 ML IV SCH (08:19)
[2021-03-07] MEDS: METOPROLOL TARTRATE 50 MG TAB PO SCH (08:20)
[2021-03-07] MEDS: MAGNESIUM OXIDE 400 MG TAB PO SCH (08:20)
[2021-03-07] MEDS: lisinopril 10 MG TAB PO SCH (08:20)
[2021-03-07] MEDS: FUROSEMIDE 20 MG TAB PO SCH (08:21)
[2021-03-07 08:33] LABS: INR 3.1 (0.9-1.1); Prothrombin Time 28.7 Seconds (9.0-12.0)
[2021-03-07] MEDS: INSULIN HUMAN NPH SC SCH (08:51)
[2021-03-07] MEDS: INSULIN ASPART PER UNIT SC SCH ×2 (08:51→12:44)
[2021-03-07 09:11] LABS: BUN Creatinine Ratio 27.1 (10-20); Calcium 9.2 mg/dl (8.5-10.1); Creatinine Clr Calc Pharmacy 40.4 ml/min; Est GFR (African American) 42.3 ml/min; Est GFR (Non-African American) 36.5 ml/min; Potassium 4.8 mmol/L (3.5-5.1)
--- NOTE | 2021-03-07 13:51 | Discharge Summary ---
Date of Service March 07, 2021 Admission HPI Per Admitting Provider CHIEF COMPLAINT: COVID, hyponatremia. HISTORY OF PRESENT ILLNESS: This is a 75-year-old male with past medical history significant for diabetes, hyperlipidemia, history of factor V Leiden mutation, acute pulmonary embolism on Coumadin, hypertension, GERD, BPH, chronic kidney disease stage III, gout arthropathy comes because of severe sore throat. The patient was in the ER yesterday morning for pharyngitis and weakness and found to have COVID-19 and was discharged home with advice to get monoclonal antibodies as he didnot had booster shot., comes back as the patient seems confused at home .In the ER, his labs showed sodium 125, was 134 yesterday. The patient is not drinking or eating much, poor appetite and he has sore throat since last Monday. Denies any fever, some cough, bringing up phlegm, no sh ortness of breath, no chest pain, no headache, no blurred vision, no earache, no nausea, no vomiting, no abdominal pain, no diarrhea. Normal bladder movements. The patient is currently resting comfortably and stable, but has sore throat. In the ER, he was given a dose of Dilaudid, which dropped his oxygen saturations, prior to that his oxygen saturations were okay. Currently requiring oxygen. Admission Exam Per Admitting Provider GENERAL: The patient is of moderate build, not in acute distress. VITAL SIGNS: Temperature 37.2, pulse 91, respiratory rate 18, blood pressure 176/97, oxygen 96% on 4 liters. HEENT: Pupils equal, round and reactive to light. Oral mucosa moist. NECK: No JVD. No neck masses. CARDIOVASCULAR: S1 and S2 heard. Regular rate and rhythm. No murmur, no gallop. RESPIRATORY: Normal AP diameter. No accessory muscle use. No wheezing, no crackles. ABDOMEN: Soft, bowel sounds present, nontender, no distention. CENTRAL NERVOUS SYSTEM: Cranial nerves II-XII grossly intact, nonfocal. EXTREMITIES: No edema, no erythema. Principal Diagnosis (1) COVID-19: (2) Pharyngitis: (3) Weakness: (4) Acute hyponatremia: (5) Diabetes type 2 Discharge Exam General- No acute distress Head- atraumatic Eyes- PERRL, EOMI, ENT- oropharynx clear, uvula midline with no pus and swelling Neck- supple, no JVD Lungs- clear to auscultation Heart- regular rhythm; no murmur Abdomen- normal bowel sounds, soft, nontender Extremities- no calf tenderness Neuro- alert, oriented x 3; PERRL, EOMI; no facial palsy; no dysarthria Skin- warm & dry Discharge Data Allergies Allergy/AdvReac Type Severity Reaction Status Date / Time meperidine Allergy Unknown Unknown Verified 02/27/21 00:06 aspartame Allergy Verified 03/03/21 11:57 Consultations 02/27/21 02:15 ED Decision to Admit Stat Ordered Studies 02/27/21 01:25 CT head/brain wo con Urgent CT SCAN OF THE BRAIN WITHOUT IV CONTRAST CLINICAL HISTORY: Change in mental status. COMPARISON STUDY: No priors. TECHNIQUE: Unenhanced axial CT scan of the brain is performed from the vertex to the skull base. A dose lowering technique was utilized adhering to the principles of ALARA. CT DOSE: 614.27 mGy.cm FINDINGS: Brain parenchyma: There are age-related involutional changes noting mild subcortical and periventricular microangiopathic change. There is no hemorrhage, mass effect, or evidence of acute territorial ischemia by CT criteria. Mosquera- white matter differentiation is preserved. No extra-axial fluid collection is seen. Ventricles, sulci, cisterns: Prominent secondary to involutional change. Intracranial vasculature: There is atherosclerotic calcification of the cavernous carotid and vertebral arteries. Calvarium: Unremarkable. Sinuses and mastoids: The visualized paranasal sinuses are clear. The mastoid air cells are well pneumatized. Orbits: The bony orbits are grossly intact. IMPRESSION: There is no hemorrhage, mass effect, or evidence of acute territorial ischemia by CT criteria. ACT 112: Negative or not required by law. Electronically signed by: Alexis Sanchez M.D. 02/27/2021 6:11 AM Dictated:02/27/21 06 Transcribed: 02/27/21 06 SINGLE VIEW CHEST CLINICAL HISTORY: Generalized weakness. Covid. FINDINGS: An AP, portable, upright chest radiograph is compared to study dated 02/26/2021. The heart is mildly enlarged. There is increasing bibasilar consolidation as compared to yesterday. No large pleural effusion is identified. No pneumothorax is seen. The skeletal structures are osteopenic. The bony thorax is grossly intact. IMPRESSION: There is increasing bibasilar consolidation as compared to yesterday consistent with the reported history of a viral pneumonia. Radiographic follow- up to resolution is recommended. ACT 112: Negative or not required by law. Electronically signed by: Alexis Sanchez M.D. 02/27/2021 7:09 AM Dictated:02/27/21707 Transcribed: 02/27/21707 Hospital Course (1) COVID-19: (2) Pharyngitis: (3) Weakness: (4) Acute hyponatremia: ASSESSMENT AND PLAN: This is a 75-year-old male who was diagnosed with COVID-19, who presents with severe sore throat and hyponatremia. ACUTE HYPOXIC RESPIRATORY FAILURE SECONDARY TO COVID-19 INFECTION Sore throat Secondary of being weaned off oxygen supplementation, currently saturating 96% on room air Chest x-ray bilateral pneumonia, bibasilar mostly Decadron day #9 Completed the course of Remdesivir Saturated well on RA Continue Incentive spirometry and flutter valve 2 step done and pt does not require any oxygen supplement Continue guaifenesin SEVERE SORE THROAT LIKELY SECONDARY TO PHARYNGITIS SECONDARY TO COVID-19 Continue Decadron and Ceftriaxone Tylenol as needed, Magic swizzle, Chloraseptic and tramadol as needed Continue monitor ACUTE HYPONATREMIA, LIKELY HYPOVOLEMIC FROM POOR INTAKE Sodium 130 on admission received IVF and K 133 today ACUTE METABOLIC ENCEPHALOPATHY LIKELY SECONDARY TO COVID-19 INFECTION, HYPOXIA Resolved DIABETES TYPE 2 Hba1c 8.8 Glipizide on hold during the hospital course Insulin sliding scale Pharmacy on board for glycemic management Continue monitor BS HYPERTENSION Continue diltiazem, lisinopril, metoprolol BP stable As needed hydralazine HISTORY OF FACTOR V LEYDEN MUTATION History of PE INR 1.7 today Continue Coumadin Continue monitor coumadin HISTORY OF EDEMA Lasix was held due to dehydration Continue lasix daily No leg edema HISTORY OF CKD 3 Creatinine 1.7 today, Creatinine baseline 1.6 to 1.8 Monitor closely Stable DVT prophylaxis INR 3.1 continue Coumadin Disposition Possible discharge today Total Time Total Time Spent Total Time Spent (In Minutes): 35 minutes Discharge Plan Discharge Items Patient Disposition: Home - Self-Care Reason For Visit: ILLNESS Discharge Diagnosis: (1) COVID-19: (2) Pharyngitis: (3) Weakness: (4) Acute hyponatremia: Activity: Resume your previous activity Non-emergency contact: Primary Care Provider Call non-emergency contact if: you have any medication questions and your symptoms worsen Follow-up/Referrals: James Gordon MD [Primary Care Provider] - (Date & Time 03/10/2021 11:00 AM Provider James Gordon MD Department [facility] ) Diet: Carb Consistent or DM2 Addtl Attending Provider Instructions: Follow up with your primary care provider Dr. Gordon on 03/10/2021 @ 11:00 AM at the [facility] Follow up with the coumadin clinic to monitor your PT/INR Continue monitor your blood sugar and bring your blood sugar log at your next appointment with your provider. Limited concentrated sweet intake Continue monitor your blood pressure Check BMP in 1 week to monitor your sodium level Seek medical attention if your symptoms worsening Continue incentive spirometry and flutter valve Avoid any hot food or drink because they can irritate your throat ( Cold drink is preferred) Continue soft food and advanced as tolerated Continue to practice social distance and to wear mask Home Isolation COVID-19 Instructions The following information about Home Isolation is from the CDC Website: https://www.cdc.gov/coronavirus/2019-ncov/hcp/aqrtmbgc-nxthmvc-botiae.html Stay home except to get medical care People who are mildly ill with COVID-19 are able to isolate at home during their illness. You should restrict activities outside your home, except for getting medical care. Do not go to work, school, or public areas. Avoid using public transportation, ride-sharing, or taxis. Separate yourself from other people and animals in your home People: As much as possible, you should stay in a specific room and away from other people in your home. Also, you should use a separate bathroom, if available. Animals: You should restrict contact with pets and other animals while you are sick with COVID-19, just like you would around other people. Although there have not been reports of pets or other animals becoming sick with COVID-19, it is still recommended that people sick with COVID-19 limit contact with animals until more information is known about the virus. When possible, have another member of your household care for your animals while you are sick. If you are sick with COVID-19, avoid contact with your pet, including petting, snuggling, being kissed or licked, and sharing food. If you must care for your pet or be around animals while you are sick, wash your hands before and after you interact with pets and wear a face mask. Call ahead before visiting your doctor If you have a medical appointment, call the healthcare provider and tell them that you have or may have COVID-19. This will help the healthcare providers office take steps to keep other people from getting infected or exposed. Wear a face mask You should wear a face mask when you are around other people (e.g., sharing a room or vehicle) or pets and before you enter a healthcare providers office. If you are not able to wear a face mask (for example, because it causes trouble breathing), then people who live with you should not stay in the same room with you, or they should wear a face mask if they enter your room. Cover your coughs and sneezes Cover your mouth and nose with a tissue when you cough or sneeze. Throw used tissues in a lined trash can. Immediately wash your hands with soap and water for at least 20 seconds or, if soap and water are not available, clean your hands with an alcohol-based hand santa's helper that contains at least 60% alcohol. Clean your hands often Wash your hands often with soap and water for at least 20 seconds, especially after blowing your nose, coughing, or sneezing; going to the bathroom; and before eating or preparing food. If soap and water are not readily available, use an alcohol-based hand santa's helper with at least 60% alcohol, covering all surfaces of your hands and rubbing them together until they feel dry. Soap and water are the best option if hands are visibly dirty. Avoid touching y our eyes, nose, and mouth with unwashed hands. Avoid sharing personal household items You should not share dishes, drinking glasses, cups, eating utensils, towels, or bedding with other people or pets in your home. After using these items, they should be washed thoroughly with soap and water. Clean all high-touch surfaces everyday High touch surfaces include counters, tabletops, doorknobs, bathroom fixtures, toilets, phones, keyboards, tablets, and bedside tables. Also, clean any surfaces that may have blood, stool, or body fluids on them. Use a household cleaning spray or wipe, according to the label instructions. Labels contain instructions for safe and effective use of the cleaning product including precautions you should take when applying the product, such as wearing gloves and making sure you have good ventilation during use of the product. Monitor your symptoms Seek prompt medical attention if your illness is worsening (e.g., difficulty breathing).Beforeseeking care, call your healthcare provider and tell them that you have, or are being evaluated for, COVID-19. Put on a face mask before you enter the facility. These steps will help the healthcare providers office to keep other people in the office or waiting room from getting infected or exposed. Ask your healthcare provider to call the local or state health department. Persons who are placed under active monitoring or facilitated self- monitoring should follow instructions provided by their local health department or occupational health professionals, as appropriate. When working with your local health department check their available hours. If you have a medical emergency and need to call 911, notify the dispatch personnel that you have, or are being evaluated for COVID-19. If possible, put on a face mask before emergency medical services arrive. Discontinuing home isolation Patients with confirmed COVID-19 should remain under home isolation precautions until the risk of secondary transmission to others is thought to be low. The decision to discontinue home isolation precautions should be made on a cjgc-kp-zbmt basis, in consultation with healthcare providers and state and local health departments. Coronavirus disease 2019 (COVID-19) is a virus that causes a respiratory illness. It is caused by a coronavirus called 2019 novel coronavirus (2019- nCoV). There are many types of coronavirus. Coronaviruses are a very common cause of bronchitis. They may sometimes cause lung infection(pneumonia). Symptoms can range from mild to severe respiratory illness. These viruses are also foundin some animals. COVID-19 was first found in people in [facility], in late 2019. In 2020, several cases of COVID-19 have been confirmed in the [place] Public health officials are working to find the source. How the virus spreads is not yet fully known. It may be spread through droplets of fluid that a person coughs or sneezes into the air. It may be spread if you touch a surface with virus on it, such as a handle or object, and then touch your mouth. What are the symptoms of COVID-19? Some people have no symptoms or mild symptoms. Symptoms may appear 2 to 14 days after contact with the virus. Symptoms can include: Fever Coughing Trouble breathing What are possible complications from COVID-19? In many cases, this virus can cause infection (pneumonia) in both lungs. In some cases, this can cause . How is COVID-19 diagnosed? Your healthcare provider will ask about your symptoms. He or she will also ask about your recent travel and contact with sick people. Testing for the virus is only done through the CDC. If yourhealthcare provider thinks you may have COVID- 19, he or she will work with your local health department and the CDC on testing. Follow all instructions from your healthcare provider. COVID-19 is diagnosed by: Nasal and throat swab. A cotton-tipped swab is wiped inside your nose or throat. This is done to check for viruses in your nasal mucus. Sputum culture. A small sample of mucus coughed from your lungs (sputum) is collected if you have a cough. It is checked for the virus. How is COVID-19 treated? There is currently no medicine to treat the virus. Treatment is done to help your body while it fights the virus. This is known as supportive care. Supportive care may include: Pain medicine. These include acetaminophen and ibuprofen. They are used to help ease pain and reduce fever. Bed rest. This helps your body fight the illness. For severe illness, you may need to stay in the hospital. Care during severe illness may include: IV (intravenous) fluids.These are given through a vein to help keep your body hydrated. Oxygen. Supplemental oxygen or ventilation with a breathing machine (ventilator) may be given. This is done to keep enough oxygen in your body. Are you at risk for COVID-19? If youve been to a place where people have been sick with this virus, you are at risk for infection. You are at risk if you: Recently traveled to an affected area Had contact with a sick person who recently traveled to this area Had contact with a person who was diagnosed with COVID-19 How can COVID-19 be prevented? There is no vaccine yet. The best prevention is to not have contact with the virus. The CDC advises that people should not travel to areas where there are COVID-19 outbreaks right now for any reason that is not urgent. To help prevent spreading the infection, wash your hands often, or use an alcohol-basedhand santa's helper. If you are in an area with COVID-19: Wash your hands often. Or use an alcohol-based hand santa's helper often. Only touch your eyes, nose, or mouth with clean hands. Dont have contact with people who are sick. Follow local instructions about being in public. For example, you may be told to not use public transport for a period of time. Stay away from markets that have live or animals. Wash your hands after touching any animals. Don't touch animals that may be sick. Dont share eating or drinking tools with sick people. Dont kiss someone who is sick. Clean surfaces often with disinfectant. If you were in an area with COVID-19 in the last 14 days: Call your healthcare provider. He or she can talk with local health staff to see what action may be needed. Follow all instructions from your provider. Take your temperature every morning and evening for at least 14 days. This is to check for fever. Keep a record of the readings. Keep watch for symptoms of the virus. Tell your provider right away if you have symptoms. If you were in an area with COVID-19 and have a fever or other symptoms: Dont panic. Keep in mind that other illnesses can cause similar symptoms. Stay away from work, school, and public places. Limit physical contact with family members. Don't kiss anyone or share eating or drinking utensils. Clean surfaces you touch with disinfectant. This is to help prevent the virus from spreading. Call your healthcare provider. Explain that you have been exposed to COVID-19 and have symptoms. Do this before going to any hospital. Wait for instructions. Keep in mind that healthcare staff may wear protective equipment such as masks, gowns, gloves, and eye protection. You may be put in a separate room. This is to prevent the possible virus from spreading. Tell the healthcare staff about recent travel. This includes local travel on public transport. Staff may need to find other people you have been in contact w ith. Follow all instructions the healthcare staff give you. If you have been diagnosed with COVID-19 Follow all instructions from your healthcare provider. Dont leave your home, except to get medical care. Call your healthcare providers office before going. They can prepare and give you instructions. This will help prevent the virus from spreading. Dont go to work, school, or public areas. Dont use public transport or taxis. Stay away from other people in your home. Have them wear face masks around you. Dont share household items or food. Wear a face mask if you can. This includes at home or in a medical facility. Cover your face with a tissue when you cough or sneeze. Throw the tissue away. Wash your hands. Wash your hands often. Caregivers should: Follow all instructions from healthcare staff. Wear a face mask and protective clothing as advised. Wash hands often. Keep track of the sick persons symptoms. Clean surfaces, fabrics, and laundry thoroughly. Keep other people away from the sick person. When to call your healthcare provider Call your healthcare provider: If youve recently traveled and have symptoms If you have been diagnosed with COVID-19 and your symptoms are worse To learn more To find out more about COVID-19, visit the CDC website at www.cdc.gov/coronavirus/2019-ncov/index.html. [employer]. [address] [place] [address]. All rights reserved. This information is not intended as a substitute for professional medical care. Always follow your healthcare professional's instructions. This information has been adapted from [employer] Pending Studies at Discharge: No Stand-Alone Forms: My [facility] [employer], Smoking Cessation Medications and DC Order Prescriptions: New lisinopril 10 mg Tablet 10 mg PO QAM 30 Days Qty: 30 RF: 0 Continued glipizide 10 mg tablet 10 mg PO BID RF: 0 diltiazem HCl 360 mg capsule,extended release 24 hr 360 mg PO QAM RF: 0 allopurinol 100 mg tablet 200 mg PO HS RF: 0 tamsulosin 0.4 mg capsule 0.4 mg PO HS RF: 0 omeprazole 20 mg capsule,delayed release(DR/EC) 20 mg PO DAILYBB RF: 0 furosemide 20 mg tablet 20 mg PO QAM RF: 0 metoprolol tartrate 50 mg Tablet 50 mg PO BID Qty: 60 RF: 0 atorvastatin 40 mg tablet 40 mg PO HS RF: 0 benzonatate 100 mg capsule 200 mg PO TID PRN (Reason: cough) Qty: 30 RF: 0 tramadol [Ultram] 50 mg tablet 50 mg PO Q6H PRN (Reason: pain) Qty: 30 RF: 0 albuterol sulfate 90 mcg/actuation HFA aerosol inhaler 2 inh inhalation Q4H PRN (Reason: shortness of breath or wheezing) Qty: 8.5 RF: 0 warfarin 5 mg tablet See Rx Instructions .ROUTE .COMPLEX RF: 0 Discontinued lisinopril 5 mg tablet 5 mg PO QAM RF: 0 Discharge Orders: Discharge Order (Routine); Ordered 03/07/21 Ordered By: Ajay Dos Santos/Other Patient Handouts: COVID-19 Home Care, Self-Care for Sore Throats, ED Pharyngitis, Viral Admission Data Admit Date/Time: 02/27/21 04:11 Attending Provider: Ajay Aguilar Admit Provider: David Milton Primary Care Provider: James Gordon Other Providers: David Milton ; Nick Mandujano Other Interventions: Discharge Summary Assessment (RN) Last Done: 03/07/21 14:21
[2021-03-07] MEDS: WARFARIN SOD 5 MG TAB PO SCH (15:30)
== END 2021-03-07 16:45 | disposition home or self-care (01) | DRG 177 ==
LOC: ED 23:30 → SUATTDRO 02-27 04:11 → 2E 02-27 04:11